=== PATIENT | female | born 1980 | race Caucasian/White ===

== ENCOUNTER → 2018-01-10 13:48 | Outpatient (CLI) | payer OTHER, SELFPAY | PROVIDERS: Referring Provider Obstetrics & Gynecology; Visit Provider Obstetrics & Gynecology | DX: E03.9 Hypothyroidism, unspecified (principal) | CPT/HCPCS: 36415; 84443 ==

== ENCOUNTER → 2018-01-30 10:48 | Outpatient (CLI) | payer OTHER, SELFPAY ==
[2018-01-30 11:36] LABS: T4 Free Direct 1.15 ng/dL (0.76-1.46); Thyroid Stim Hormone (TSH) 1.49 uIU/mL (0.358-3.74)
== END ==
PROVIDERS: Visit Provider Nurse Practitioner Women's Health
DX: O99.280 Endocrine, nutritional and metabolic diseases complicating pregnancy, unspecified trimester (principal); E03.9 Hypothyroidism, unspecified; Z36.9 Encounter for antenatal screening, unspecified; Z3A.00 Weeks of gestation of pregnancy not specified
CPT/HCPCS: 36415; 84439; 84443

== ENCOUNTER → 2018-03-02 08:48 | Outpatient (CLI) | payer OTHER, SELFPAY ==
[2018-02-12 17:01] VITALS: BMI 27.1
[2018-03-02 10:06] LABS: T4 Free Direct 1.09 ng/dL (0.76-1.46)
== END ==
PROVIDERS: Visit Provider Obstetrics & Gynecology
DX: O99.280 Endocrine, nutritional and metabolic diseases complicating pregnancy, unspecified trimester (principal); E03.9 Hypothyroidism, unspecified; Z3A.00 Weeks of gestation of pregnancy not specified
CPT/HCPCS: 36415; 84439; 84443

== ENCOUNTER → 2018-04-11 11:39 | Outpatient (CLI) | payer OTHER, SELFPAY ==
[2018-04-02 15:14] VITALS: BMI 27.1
[2018-04-11 12:32] LABS: T4 Free Direct 1.06 ng/dL (0.76-1.46)
--- OUTSIDE RECORDS SUMMARY | 2018-06-16 07:48 | XMS RPT_ITS ---
:1980 Author Organization OHIP Care Team Providers Name Role Phone Ana Nunez Attending Unavailable PROVIDER, UNKNOWN Referring Unavailable No, PCP Primary Care Unavailable MOO MORGAN Attending Unavailable MARCANTHONY, ISA E Referring Unavailable NO PRIMARY CARE, MD Primary Care Unavailable Marcanthony, Isa Attending Unavailable Primay Care Physicia, No Referring Unavailable Marcanthony, Isa Attending Unavailable Primay Care Physicia, No Referring Unavailable Marcanthony, Isa Attending Unavailable Primay Care Physicia, No Referring Unavailable Marcanthony, Isa Attending Unavailable Marcanthony, Isa Referring Unavailable Primay Care Physicia, No Primary Care Unavailable Marcanthony, Isa Attending Unavailable Marcanthony, Isa Referring Unavailable Primay Care Physicia, No Primary Care Unavailable Marcanthony, Isa Attending Unavailable Marcanthony, Isa Referring Unavailable Primay Care Physicia, No Primary Care Unavailable Marcanthony, Isa Attending Unavailable Primay Care Physicia, No Referring Unavailable Primay Care Physicia, No Attending Unavailable Frannie, Greta Attending Unavailable Primay Care Physicia, No Referring Unavailable Frannie, Greta Attending Unavailable Primay Care Physicia, No Primary Care Unavailable Marcanthony, Isa Attending Unavailable Primay Care Physicia, No Referring Unavailable Marcanthony, Isa Attending Unavailable Primay Care Physicia, No Primary Care Unavailable PROBLEMS PROBLEMS DATE TYPE CONDITION / CODE ATTENDING STATUS SOURCE 04/02/2018 Unknown O09.819 - Marcanthony, Active Catie Supervision of [facility] resulting Hospital from assisted Repository reproductive technology, unspecified trimester / O09.819(ICD-10) 04/02/2018 Unknown O99.820 - Marcanthony, Active Catie Streptococcus B [facility] complicating Repository / O99.820(ICD-10) 04/02/2018 Unknown O99.282 - Marcanthony, Active Catie Endocrine, [facility] metabolic diseases Repository complicating , second trimester / O99.282(ICD-10) 04/02/2018 Unknown Z3A.25 - 25 weeks Marcanthony, Active Catie gestation of [facility] / Hospital Z3A.25(ICD-10) Repository 04/06/2018 Unknown O99.280 - Marcanthony, Active Catie Endocrine, [facility] metabolic diseases Repository complicating , unspecified trimester / O99.280(ICD-10) 02/12/2018 Unknown Z3A.18 - 18 weeks Marcanthony, Active Catie gestation of [facility] / Hospital Z3A.18(ICD-10) Repository 01/30/2018 Unknown E03.9 - Greta Kathleen Active Catie Hypothyroidism, [facility] unspecified / Hospital E03.9(ICD-10) Repository 01/30/2018 Unknown Z34.90 - Encounter Greta Kathleen Active Catie for supervision of [facility] normal , Hospital unspecified, Repository unspecified trimester / Z34.90(ICD-10) 01/30/2018 Unknown Z3A.16 - 16 weeks Greta Kathleen Active [place] gestation of [facility] / Hospital Z3A.16(ICD-10) Repository 08/03/2017 Admitting Androgen excess / Ana Nunez Active [facility] Diagnosis E28.1(ICD-10) System Repository PROCEDURES PROCEDURES No Procedure Records FoundRESULTS RESULTS CBC W/DIFF, AUTOMATED Collected: 04/19/2018 Status: F Source: CATIE 11:07 AM [facility] REPOSITORY TYPE CODE TESTS RESULT OUT OF RANGE REFERENCE UNITS LAB L100.1000 4.4-11.0 K/mm3 Normal WBC 7.2 LAB L100.1200 4.2-5.4 M/mm3 Low RBC 3.86 LAB L100.1300 12.0-15.0 g/dl Low HGB 11.4 LAB L100.1400 37-47 % Low HCT 33.8 LAB L100.1500 81-99 fL Normal MCV 87.6 LAB L100.1600 27.0-32.0 pg Normal MCH 29.5 LAB L100.1700 32-36 g/gl Normal MCHC 33.7 LAB L100.1810 11.6-14.6 % Normal RDW CV 13.3 LAB L100.1820 35.1-43.9 fl Normal RDW SD 42.5 LAB L100.1900 150-450 K/mm3 Normal PLT 232 LAB L100.2000 6.2-12.0 fl Normal MPV 8.8 LAB L100.2100 47-70 % High NEUT% 72.5 LAB L100.2200 19-41 % Normal LY% 21.0 LAB L100.2300 0-10 % Normal MONO% 5.0 LAB L100.2400 0-5 % Normal EO% 1.3 LAB L100.2500 0-1 % Normal BASO% 0.1 LAB L100.2550 0.0-0.9 % Normal IM GRAN % 0.100 Result Comment: IG% - Immature Granulocytes (promyelocytes, myelocytes and metamyelocytes) > 1% indicates that a LEFT SHIFT is Present. LAB L100.2620 2.0-7.7 X10 3/uL Normal Absolute Neut 5.2 LAB L100.2720 0.83-4.51 X10 3/ul Normal Absolute Lymph 1.50 Performed By: #### L100.0100 #### [facility] [address] [place], [address] GLUCOSE CHALLENGE GEST Collected: 04/19/2018 Status: F Source: CATIE 1H 50G 11:07 AM [facility] TYPE CODE TESTS RESULT OUT OF RANGE REFERENCE UNITS LAB L501.0250 70-140 mg/dL High GLU GEST 141 50g 1H Performed By: #### L501.0250 #### [facility] [address] [place], [address] THYROID STIM HORMONE Collected: 04/11/2018 Status: F Source: CATIE (TSH) 12:02 PM [facility] TYPE CODE TESTS RESULT OUT OF RANGE REFERENCE UNITS LAB L501.9520 0.358-3.74 uIU/mL Normal TSH 1.00 Performed By: #### L501.9520, L506.0400 #### [facility] [address] [place], [address] T4 FREE DIRECT Collected: 04/11/2018 Status: F Source: CATIE 12:02 PM [facility] TYPE CODE TESTS RESULT OUT OF RANGE REFERENCE UNITS LAB L506.0400 0.76-1.46 ng/dL Normal T4 FREE 1.06 DIRECT Performed By: #### L501.9520, L506.0400 #### [facility] [address] [place], [address] ICT DEVELOPMENT MANAGER OFFICE VISIT Observed: 04/02/2018 Status: F Source: CATIE REPORT 4:10 PM [facility] [address] [place] [address] OFFICE VISIT Date of Service: 04/02/18 MR#: [id number] Acct: [id number] Name: VENECIA DELGADO Rep #: [id number] : 1980 Provider: Isa Campos MD Age/Sex: 38/F [place] [facility] [place] Status: Signed Intake Vital Signs04/02/18 Body Mass Index (BMI) 27.1 04/02/18 Height 5 ft 9 in 04/02/18 Weight: 197 lb 4 oz 04/02/18 Body Mass Index (BMI) 29.1 04/02/18 Blood Pressure 132/80 H Intake Visit Reasons: est ob 24w Chief Complaint: est ob Appeals Nurse Required: No Is patient in pain?: No Allergies No Known Allergies Allergy (Verified 04/02/18 15:13) Medications levothyroxine 125 mcg tablet 125 mcg PO DAILY #30 tab 03/06/18 [Rx] aspirin 81 mg tablet,delayed release 81 mg PO DAILY 03/12/18 [History Confirmed 04/02/18] vitamin#30 30 mg iron-10 mg iron-folic acid 1 mg- omg3 capsule cap PO cap 04/02/18 [History Confirmed 04/02/18] Last Menstral Period: 10/07/16 Zika: Zika virus screening: Positive (Sarepta) : No PFSH PFSH Medical History Anxiety disorder (Acute) Bartholin's cyst (Acute) Polyp in nasopharynx (Acute) 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 DatName GA/WeeksOutcome Route Bt Lily Mccullough LgAnesthesDel LocaProviderFOB e ht en th ia tn 04/16/12Adhan 8 lbs 3 Male 24 oz HPI est ob 24w: Details: VENECIA DELGADO is a 38 year old who presents for routine OB visit. OB Visit YASMIN Calculator Estimated Delivery Date 07/14/18 Based on LMP (certain) 10/07/17 Current WG 25w 2d Number 1 Expected Delivery Route/Plan Specific Issue/Plans flu vaccine: given tdap vaccine: [] rhogam: NA LARC form signed: [] labor support person: Moo pain management: epidural cut cord/dad catch: yes : yes PP control planned: [] special requests: [] Initial Weight: 185 lb Date Weight BP Urine PrFHR FuHt Pres MoCTX DilationFetal StVisit NoProviderComments E ot v te GA G Effac lucose ed Visit Notes Visit Date: 04/02/18 no vb lof good fm no regular ctx Isa Campos MD on 04/02/18 Visit Date: 03/12/18 no vb lof good fm some lower pelvic pain intermittent- likely round ligament. discussed alternating thyroid us Isa Campos MD on 03/12/18 Visit Date: 02/12/18 no vb cramping lof Isa Campos MD on 02/12/18 Visit Date: 01/30/18 Doing well. No VB, LOF. Greta Kathleen NP-C on 01/30/18 Visit Date: 01/16/18 no vb cramping Isa Campos MD on 01/16/18 Visit Date: 01/01/18 no vb cramping. CHANDLER RGI labs reviewed and normal. normal NIPT plan on AFP screening. Isa Campos MD on 01/03/18 Diagnostics Diagnostics Labs Miscellaneous Test 01/30/18 Details: HIV: Urine Culture: Sequential Screen: NIPT Screen: Results [id number] Office Urine Glucose Negative Last Edit by Sarahi Barrera on 04/02/18 15:18 Office Urine Protein Negative Last Edit by Sarahi Barrera on 04/02/18 15:18 Assessment AND Plan Problems 1. , high-risk, assisted reproductive technology O09.819 PRR YASMIN boy PC Aodhan Moo. CHANDLER RGI 2. GBS (group B Streptococcus carrier), +RV culture, currently O99.820 PCN in labor 3. Hypothyroidism affecting in second trimester O99.282 Check q trimester. TSH elevated, thyroxine normal 4. Advanced maternal age (AMA) in normal NIPT. growth us at 36 weeks 5. 25 weeks gestation of Z3A.25 urine culture negative 12/04/17. + GBS. normal NIPT. ntd screening negative. Carrier screening negative. Anatomy US normal Maximo hahn Plan ACOG trimester education reviewed and updated. see problem list details for updated plan management information and see below for orders placed at this visit. [place] appropriate handout given. Orders Orders: Coding Level of Care Code OB Routine Diagnoses , high-risk, assisted reproductive technology O09.819 GBS (group B Streptococcus carrier), +RV culture, currently O99.820 Hypothyroidism affecting in second trimester O99.282 Trimester: second trimester Advanced maternal age (AMA) in 25 weeks gestation of Z3A.25 Weeks of gestation: 25 weeks 04/02/18 1610 <Electronically signed by Isa Campos MD> Date Isa Campos MD Cosigner Signature: Date (if applicable) CC: ICT DEVELOPMENT MANAGER OFFICE VISIT Observed: 03/17/2018 Status: F Source: CATIE REPORT 3:08 AM [facility] [address] [place], [place] [address]ravindra. [address] [place] [address] OFFICE VISIT Date of Service: 03/12/18 MR#: [id number] Acct: [id number] Name: VENECIA DELGADO Rep #: [id number] : 1980 Provider: Isa Campos MD Age/Sex: 38/F [place] [facility] [place] Status: Signed Intake Vital Signs03/12/18 Body Mass Index (BMI) 27.1 03/12/18 Height 5 ft 10 in 03/12/18 Weight: 190 lb 03/12/18 Body Mass Index (BMI) 27.2 03/12/18 Blood Pressure 126/84 H Intake Visit Reasons: est ob 21w Chief Complaint: Est ob Is patient in pain?: No Allergies No Known Allergies Allergy (Verified 03/12/18 12:04) Medications levothyroxine 112 mcg tablet 112 mcg PO DAILY #30 tab 01/16/18 [Rx Confirmed 02/12/18] levothyroxine 125 mcg tablet 125 mcg PO DAILY #30 tab 03/06/18 [Rx] aspirin 81 mg tablet,delayed release 81 mg PO DAILY 03/12/18 [History Confirmed 03/12/18] Last Menstral Period: 10/07/16 Zika: Zika virus screening: Negative : No PFSH PFSH Medical History Anxiety disorder (Acute) Bartholin's cyst (Acute) Polyp in nasopharynx (Acute) 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 DatName GA/WeeksOutcome Route [facility] Lily Mccullough LgAnestheAnkitael LocaProviderFOB e ht en tn 04/16/12Adhan 8 lbs 3 Male 24 oz HPI est ob 21w: Details: VENECIA DELGADO is a 38 year old who presents for routine OB visit. OB Visit YASMIN Calculator Estimated Delivery Date 07/14/18 Based on LMP (certain) 10/07/17 Current WG 23w 0d Number 1 Expected Delivery Route/Plan Specific Issue/Plans flu vaccine: given tdap vaccine: [] rhogam: NA LARC form signed: [] labor support person: Moo pain management: epidural cut cord/dad catch: yes : yes PP control planned: [] special requests: [] Initial Weight: 185 lb Date Weight BP Urine PFHR FuHt Pres MCTX DilatioFetal SVisit NProvideComment rot ov n t ote r s EGA Ef Gluco faced se 01/02/1184 lb 100/[address] FERGUSON 8 2 oz (- ramping CANTHON 1214 oz) . CHANDLER Y w 2d RGI lab s revie wed and normal . norm al NIPT plan o n AFP s creenin g. Visit Notes Visit Date: 03/12/18 no vb lof good fm some lower pelvic pain intermittent- likely round ligament. discussed alternating thyroid us Isa Campos MD on 03/12/18 Visit Date: 02/12/18 no vb cramping lof Isa Campos MD on 02/12/18 Visit Date: 01/30/18 Doing well. No VB, LOF. Greta Kathleen NP-C on 01/30/18 Visit Date: 01/16/18 no vb cramping Isa Campos MD on 01/16/18 Visit Date: 01/01/18 no vb cramping. CHANDLER RGI labs reviewed and normal. normal NIPT plan on AFP screening. Isa Campos MD on 01/03/18 Diagnostics Diagnostics Labs Miscellaneous Test 01/30/18 Details: HIV: Urine Culture: Sequential Screen: NIPT Screen: Results [id number] Office Urine Glucose Negative Last Edit by Brandee Villeda on 03/12/18 12:06 Office Urine Protein Negative Last Edit by Brandee Villeda on 03/12/18 12:06 Assessment AND Plan Problems 1. , high-risk, assisted reproductive technology O09.819 PRR YASMIN boy PC Aodhan Moo. CHANDLER RGI 2. GBS (group B Streptococcus carrier), +RV culture, currently O99.820 PCN in labor 3. Hypothyroidism affecting in second trimester O99.282 Check q trimester. TSH elevated, thyroxine normal 4. Advanced maternal age (AMA) in normal NIPT. growth us at 36 weeks 5. 18 weeks gestation of Z3A.18 urine culture negative 12/04/17. + GBS. normal NIPT. ntd screening negative. Carrier screening negative. Anatomy US normal Maximo hahn Plan ACOG trimester education reviewed and updated. see problem list details for updated plan management information and see below for orders placed at this visit. [place] appropriate handout given. Orders Orders: Coding Level of Care Code OB Routine Diagnoses , high-risk, assisted reproductive technology O09.819 GBS (group B Streptococcus carrier), +RV culture, currently O99.820 Hypothyroidism affecting in second trimester O99.282 Trimester: second trimester Advanced maternal age (AMA) in 18 weeks gestation of Z3A.18 Weeks of gestation: 18 weeks 03/17/18 0308 <Electronically signed by Isa Campos MD> Date Isa Campos MD Cosigner Signature: Date (if applicable) CC: THYROID STIM HORMONE Collected: 03/02/2018 Status: F Source: CATIE (TSH) 8:58 AM [facility] TYPE CODE TESTS RESULT OUT OF RANGE REFERENCE UNITS LAB L501.9520 0.358-3.74 uIU/mL High TSH 3.90 Performed By: #### L501.9520, L506.0400 #### [facility] [address] [place], [place], [address] T4 FREE DIRECT Collected: 03/02/2018 Status: F Source: CATIE 8:58 AM [facility] TYPE CODE TESTS RESULT OUT OF RANGE REFERENCE UNITS LAB L506.0400 0.76-1.46 ng/dL Normal T4 FREE 1.09 DIRECT Performed By: #### L501.9520, L506.0400 #### [facility] [address] [place], [address] ICT DEVELOPMENT MANAGER OFFICE VISIT Observed: 02/12/2018 Status: F Source: CATIE REPORT 5:53 PM [facility] [address] [place] [address] OFFICE VISIT Date of Service: 02/12/18 MR#: [id number] Acct: [id number] Name: VENECIA DELGADO Rep #: [id number] : 1980 Provider: Isa Campos MD Age/Sex: 37/F [place] [facility] [place] Status: Signed Intake Vital Signs02/12/18 Height 5 ft 10 in 02/12/18 Weight: 189 lb 02/12/18 Body Mass Index (BMI) 27.1 02/12/18 Blood Pressure 116/70 Intake Visit Reasons: est ob 18w Chief Complaint: est ob Appeals Nurse Required: No Is patient in pain?: No Allergies No Known Allergies Allergy (Verified 02/12/18 17:01) Medications levothyroxine 112 mcg tablet 112 mcg PO DAILY #30 tab 01/16/18 [Rx Confirmed 02/12/18] Last Menstral Period: 10/07/16 Zika: Zika virus screening: Negative : No PFSH PFSH Medical History Anxiety disorder (Acute) Bartholin's cyst (Acute) Polyp in nasopharynx (Acute) 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 DatName GA/WeeksOutcome Route Bth WeigInfant GLadanii LgAnesthesDel LocaProviderFOB e ht en th ia tn 04/16/12Adhan 8 lbs 3 Male 24 oz HPI est ob 18w: Details: VENECIA DELGADO is a 37 year old who presents for routine OB visit. patient is unable to give urine specimen OB Visit YASMIN Calculator Estimated Delivery Date 07/14/18 Based on LMP (certain) 10/07/17 Current WG 18w 2d Number 1 Expected Delivery Route/Plan Specific Issue/Plans flu vaccine: given tdap vaccine: [] rhogam: NA LARC form signed: [] labor support person: Moo pain management: epidural cut cord/dad catch: yes : yes PP control planned: [] special requests: [] Initial Weight: Not Recorded Date Weight BP Urine PrFHR FuHt Pres MoCTX DilationFetal StVisit NoProviderComments E ot v te GA G Effac lucose ed Visit Notes Visit Date: 02/12/18 no vb cramping lof Isa Campos MD on 02/12/18 Visit Date: 01/30/18 Doing well. No VB, LOF. SHANE Ventura on 01/30/18 Visit Date: 01/16/18 no vb cramping Isa Campos MD on 01/16/18 Visit Date: 01/01/18 no vb cramping. CHANDLER RGI labs reviewed and normal. normal NIPT plan on AFP screening. Isa Campos MD on 01/03/18 Diagnostics Diagnostics Labs Miscellaneous Test 01/30/18 Details: HIV: Urine Culture: Sequential Screen: NIPT Screen: Assessment AND Plan Problems 1. , high-risk, assisted reproductive technology O09.819 PRR YASMIN boy PC Aodhan Moo. CHANDLER RGI 2. GBS (group B Streptococcus carrier), +RV culture, currently O99.820 PCN in labor 3. Hypothyroidism affecting in second trimester O99.282 repeat normal, check q trimester 4. Advanced maternal age (AMA) in normal NIPT. growth us at 36 weeks 5. 18 weeks gestation of Z3A.18 urine culture negative 12/04/17. + GBS. normal NIPT. ntd screening negative. Carrier screening negative. Maximo hahn Plan ACOG trimester education reviewed and updated. see problem list details for updated plan management information and see below for orders placed at this visit. [place] appropriate handout given. Coding Level of Care Code OB Routine Diagnoses , high-risk, assisted reproductive technology O09.819 GBS (group B Streptococcus carrier), +RV culture, currently O99.820 Hypothyroidism affecting in second trimester O99.282 Trimester: second trimester Advanced maternal age (AMA) in 18 weeks gestation of Z3A.18 Weeks of gestation: 18 weeks 02/12/18 2683 <Electronically signed by Isa Campos MD> Date Isa Campos MD Cosigner Signature: Date (if applicable) CC: MISCELLANEOUS LAB Collected: 01/30/2018 Status: F Source: CATIE PROCEDURE 10:54 AM [facility] Order Comment: Comments: [id number] a-Fetoprotein (AFP), Maternal Serum for Test(s) Ordered: [id number] a-Fetoprotein (AFP), Maternal Serum for TYPE CODE TESTS RESULT OUT OF RANGE REFERENCE UNITS LAB L801.1541 Normal [facility] TEST Result Comment: TEST RESULT UNITS REF INTERVAL AFP, Serum, Open Spina Bifida Results Report Test Results: *Screen Negative* Gest. Age on Collection Date 16.4 weeks Gestat. Age Based On As provided Recalculations are not recommended when gestational dating by LMP and ultrasound are within 10 days. [age] YASMIN [age] yr Race Weight 186 lbs Insulin Dep Diabetes Not provided. Multiple Gestation No AFP Value 17.8 ng/mL AFP MoM 0.59 OS[place] 1 [place] [address] Interpretation Interpretation: Screen Negative This result is screen negative for OSB. The AFP MoM calculated is based on the gestational age provided. MS-AFP can identify up to 80% of open neural tube defects. Closed neural tube defects and some open defects may not be detected by this test. This test does not screen for Down Syndrome or Trisomy 18. If screening for Down Syndrome or Trisomy 18 is desired, contact Genetic Customer Services to discuss available options. The [employer] recommends amniocentesis be offered to women age 35 and older. Comment: Terri Souza, Ph.D., [facility] Principal Genetics [place] Nurse References: Available Upon Request. Multiples Of Median Cutoffs For AFP Elevations Raymundo 2.5 Black 2.8 IDD 2.0 Twins 4.5 Abbreviation Definitions IDD - Insulin Dep Diabetes OSBR - Open Spina Bifida Risk For further inquiries contact [facility] Services at [phone]. TESTING PERFORMED AT [facility]. ORIGINAL REPORT ON FILE IN LAB CONTAINS ADDITIONAL TEST SITE INFORMATION. Performed By: #### L801.1541 #### [facility] [address] [place] [address]. [place], [place], [address] THYROID STIM HORMONE Collected: 01/30/2018 Status: F Source: CATIE (TSH) 10:52 AM [facility] Order Comment: Comments: [id number] a-Fetoprotein (AFP), Maternal Serum for TYPE CODE TESTS RESULT OUT OF RANGE REFERENCE UNITS LAB L501.9520 0.358-3.74 uIU/mL Normal TSH 1.49 Performed By: #### L501.9520, L506.0400 #### [facility] [address] [facility], [address] T4 FREE DIRECT Collected: 01/30/2018 Status: F Source: CATIE 10:52 AM [facility] Order Comment: Comments: [id number] a-Fetoprotein (AFP), Maternal Serum for TYPE CODE TESTS RESULT OUT OF RANGE REFERENCE UNITS LAB L506.0400 0.76-1.46 ng/dL Normal T4 FREE 1.15 DIRECT Performed By: #### L501.9520, L506.0400 #### [facility] [address] [place], [address] ICT DEVELOPMENT MANAGER OFFICE VISIT Observed: 01/30/2018 Status: F Source: CATIE REPORT 10:39 AM [facility] [address] [place] [address] OFFICE VISIT Date of Service: 01/30/18 MR#: [id number] Acct: [id number] Name: VENECIA DELGADO Rep #: [id number] : 1980 Provider: YOLA Kathleen Age/Sex: 37/F [place] [facility] [place] Status: Signed Intake Vital Signs01/30/18 Height 5 ft 9 in 01/30/18 Weight: 186 lb 4 oz 01/30/18 Body Mass Index (BMI) 27.5 01/30/18 Blood Pressure 108/78 Intake Visit Reasons: 16 weeks Appeals Nurse Required: No Is patient in pain?: No Allergies No Known Allergies Allergy (Verified 01/30/18 10:23) Medications levothyroxine 112 mcg tablet 112 mcg PO DAILY #30 tab 01/16/18 [Rx Confirmed 01/30/18] Last Menstral Period: 10/07/16 Zika: Zika virus screening: Negative : No PFSH PFSH Medical History Anxiety disorder (Acute) Bartholin's cyst (Acute) Polyp in nasopharynx (Acute) 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 DatName GA/WeeksOutcome Route [facility] LgAnesthesDel LocaProviderFOB e ht en ia tn 04/16/12Adhan 8 lbs 3 Male 24 oz HPI 16 weeks: Details: VENECIA DELGADO is a 37 year old who presents for routine OB visit. OB Visit YASMIN Calculator Estimated Delivery Date 07/14/18 Based on LMP (certain) 10/07/17 Current WG 16w 3d Number 1 Expected Delivery Route/Plan Specific Issue/Plans flu vaccine: given tdap vaccine: [] rhogam: NA LARC form signed: [] labor support person: Moo pain management: epidural cut cord/dad catch: yes : yes PP control planned: [] special requests: [] Initial Weight: Not Recorded Date Weight BP Urine PFHR FuHt Pres MCTX DilatioFetal SVisit NProvideComment rot ov n t ote r s EGA Ef Gluco faced se 01/02/1184 lb 100/[address] FERGUSON 8 2 oz ramping CANTHON 12 . CHANDLER Y w 2d RGI lab s revie wed and normal . norm al NIPT plan o n AFP s creenin g. Visit Notes Visit Date: 01/30/18 Doing well. No VB, LOF. SHANE Ventura on 01/30/18 Visit Date: 01/16/18 no vb cramping Isa Campos MD on 01/16/18 Visit Date: 01/01/18 no vb cramping. CHANDLER RGI labs reviewed and normal. normal NIPT plan on AFP screening. Isa Campos MD on 01/03/18 Diagnostics Diagnostics Details: HIV: Urine Culture: Sequential Screen: NIPT Screen: Results BMSUA2 Office Urine Glucose Negative Last Edit by Tawana Bahena on 01/30/18 10:30 Office Urine Protein Negative Last Edit by Tawana Bahena on 01/30/18 10:30 BMSUA Office Urine Color Yellow Last Edit by Tawana Bahena on 01/30/18 10:34 Office Urine Clarity Clear Last Edit by Tawana Bahena on 01/30/18 10:34 Assessment AND Plan Problems 1. , high-risk, assisted reproductive technology O09.819 PRR YASMIN boy PC Aodhan Moo. CHANDLER RGI 2. Advanced maternal age (AMA) in normal NIPT. growth us at 36 weeks 3. GBS (group B Streptococcus carrier), +RV culture, currently O99.820 PCN in labor 4. Hypothyroidism affecting in second trimester O99.282; E03.9 check the week of 01/02, check q trimester 5. 16 weeks gestation of Z3A.16 urine culture negative 12/04/17. + GBS. normal NIPT. plan NTD screening. Carrier screening negative. Maximo hahn Plan Orders placed: AFP, thyroid labs, flu vaccine Anatomy US scheduled Reviewed of labor precautions, movement/kick counts ACOG trimester education reviewed and updated See problem list details for updated plan of care Gestational age appropriate handout given RTO: 2 weeks Orders Orders: Coding Level of Care Code OB Routine Diagnoses , high-risk, assisted reproductive technology O09.819 Advanced maternal age (AMA) in GBS (group B Streptococcus carrier), +RV culture, currently O99.820 Hypothyroidism affecting in second trimester O99.282; E03.9 Trimester: second trimester 16 weeks gestation of Z3A.16 Weeks of gestation: 16 weeks 01/30/18 1039 <Electronically signed by Greta LYNN> Date Greta LYNN Cosigner Signature: Date (if applicable) CC: ICT DEVELOPMENT MANAGER OFFICE VISIT Observed: 01/16/2018 Status: F Source: CATIE REPORT 2:21 PM [facility] [place] [address] [place] [address] OFFICE VISIT Date of Service: 01/16/18 MR#: [id number] Acct: [id number] Name: VENECIA DELGADO Rep #: [id number] : 1980 Provider: Isa Campos MD Age/Sex: 37/F [place] [facility] [place]: Signed Intake Vital Signs01/16/18 Height 5 ft 9 in 01/16/18 Weight: 186 lb 01/16/18 Body Mass Index (BMI) 27.4 01/16/18 Blood Pressure 110/70 Intake Visit Reasons: 14 weeks Appeals Nurse Required: No Is patient in pain?: No Allergies No Known Allergies Allergy (Verified 01/16/18 14:02) Medications levothyroxine 112 mcg tablet 112 mcg PO DAILY #30 tab 01/16/18 [Rx Confirmed 01/16/18] Last Menstral Period: 10/07/16 Zika: Zika virus screening: Negative : No PFSH PFSH Medical History Anxiety disorder (Acute) Bartholin's cyst (Acute) Polyp in nasopharynx (Acute) 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 DatName GA/WeeksOutcome Route [facility] LocaProviderFOB e ht en tn 04/16/12Adhan 8 lbs 3 Male 24 oz HPI 14 weeks: Details: VENECIA DELGADO is a 37 year old who presents for routine OB visit. OB Visit YASMIN Calculator Estimated Delivery Date 07/14/18 Based on LMP (certain) 10/07/17 Current WG 14w 3d Number 1 Expected Delivery Route/Plan Initial Weight: Not Recorded Date Weight BP Urine PrFHR FuHt Pres MoCTX DilationFetal StVisit NoProviderComments E ot v te GA G Effac lucose ed Visit Notes Visit Date: 01/16/18 no vb cramping Isa Campos MD on 01/16/18 Visit Date: 01/01/18 no vb cramping. CHANDLER RGI labs reviewed and normal. normal NIPT plan on AFP screening. Isa Campos MD on 01/03/18 Diagnostics Diagnostics Details: HIV: Urine Culture: Sequential Screen: NIPT Screen: Assessment AND Plan Problems 1. , high-risk, assisted reproductive technology O09.819 PRR YASMIN boy PC Aodhan Moo. CHANDLER RGI 2. Advanced maternal age (AMA) in normal NIPT. growth us at 36 weeks 3. Z34.90 normal NIPT. plan NTD screening. Carrier screening negative. 4. GBS (group B Streptococcus carrier), +RV culture, currently O99.820 PCN in labor 5. Hypothyroidism affecting O99.280; E03.9 check the week of 01/02, check q trimester Plan ACOG trimester education reviewed and updated. see problem list details for updated plan management information and see below for orders placed at this visit. GA appropriate handout given. Orders Orders: Medications New: Discontinued: Coding Level of Care Code OB Routine Diagnoses , high-risk, assisted reproductive technology O09.819 Advanced maternal age (AMA) in Z34.90 GBS (group B Streptococcus carrier), +RV culture, currently O99.820 Hypothyroidism affecting O99.280; E03.9 01/16/18 1421 <Electronically signed by Isa Campos MD> Date Isa Campos MD Cosigner Signature: Date (if applicable) CC: THYROID STIM HORMONE Collected: 01/10/2018 Status: F Source: CATIE (TSH) 1:57 PM [facility] TYPE CODE TESTS RESULT OUT OF RANGE REFERENCE UNITS LAB L501.9520 0.358-3.74 uIU/mL Normal TSH 1.80 Performed By: #### L501.9520 #### Catie [facility] [address] [place], [address] ICT DEVELOPMENT MANAGER OFFICE VISIT Observed: 01/03/2018 Status: F Source: CATIE REPORT 3:35 AM [facility] [address] [place] [address] OFFICE VISIT Date of Service: 01/01/18 MR#: [id number] Acct: [id number] Name: VENECIA DELGADO Rep #: [id number] : 1980 Provider: Isa Campos MD Age/Sex: 37/F Location[place] [facility] [place] Status: Signed Intake Vital Signs01/01/18 Height 5 ft 9 in 01/01/18 Weight: 184 lb 2 oz 01/01/18 Body Mass Index (BMI) 27.1 01/01/18 Blood Pressure 100/80 Intake Visit Reasons: NOB - 12 WEEK RELEASE FROM SPECIALIST Chief Complaint: est ob, released from Dr. Nunez Appeals Nurse Required: No Is patient in pain?: No Allergies No Known Allergies Allergy (Verified 01/01/18 16:18) Medications citalopram 20 mg tablet 20 mg PO QDAY #30 tab 05/25/17 [Rx] Last Menstral Period: 10/07/16 Zika: Zika virus screening: Positive ([place]) : No PFSH PFSH Medical History Secondary female infertility (Chronic) Anxiety disorder (Acute) Bartholin's cyst (Acute) Polyp in nasopharynx (Acute) Surgical History History of appendectomy (Acute) Status post hysteroscopic polypectomy (Resolved) Family History Mother Breast cancer Social History Smoking Status: Never smoker details: social substance use type: does not use what type of physical activity do you participate in: walking, running frequency: 3-4 times per week duration: 30-45 minutes/day seatbelt use: always do you feel safe at home: Yes additional social history: Spouse Moo DILLARD Patient works at [employer] Pregancy History 4 Elective abortions Hx Para 1 Spontaneous abortions Past Pregnancies Del. DatName GA/WeeksOutcome Route [facility] LgAnesthesDel LocaProviderFOB e ht en ia tn 04/16/12Adhan 8 lbs 3 Male 24 oz HPI NOB - 12 WEEK RELEASE FROM SPECIALIST: Details: VENECIA DELGADO is a 37 year old who presents for routine OB visit. OB Visit YASMIN Calculator Estimated Delivery Date 07/14/18 Based on LMP (certain) 10/07/17 Current WG 12w 4d Number 1 Initial Weight: Not Recorded Date Weight BP Urine PrFHR FuHt Pres MoCTX DilationFetal StVisit NoProviderComments E ot v te [place] G Effac lucose ed Visit Notes Visit Date: 01/01/18 no vb cramping. CHANDLER RGI labs reviewed and normal. normal NIPT plan on AFP screening. Isa Campos MD on 01/03/18 Diagnostics Diagnostics Details: HIV: Urine Culture: Sequential Screen: NIPT Screen: Assessment AND Plan Problems 1. Z34.90 normal NIPT. plan NTD screening. Carrier screening negative. 2. , high-risk, assisted reproductive technology O09.819 PRR YASMIN boy PC Aodhan Moo. CHANDLER RGI 3. Advanced maternal age (AMA) in normal NIPT. growth us at 36 weeks Plan ACOG trimester education reviewed and updated. see problem list details for updated plan management information and see below for orders placed at this visit. GA appropriate handout given. reviewed records Orders Orders: Coding Level of Care Code OB Routine Diagnoses Z34.90 , high-risk, assisted reproductive technology O09.819 Advanced maternal age (AMA) in 01/03/18 0335 <Electronically signed by Isa Campos MD> Date [facility] Signature: Date (if applicable) CC: CT ABDOMEN W/O Observed: 08/04/2017 Status: F Source: Periscope CONTRAST 8:11 AM SYSTEM REPOSITORY Patient Name: ALEXSANDRA DELGADO CT Exam Date/Time 08/03/2017 09:33:[address] Abdomen w/o Contrast (No PO, No IV) Ordering Physician ANA NUNEZ Accession Number [id number] CPT4 Codes 40258 (CT Abdomen w/o Contrast (No PO, No IV)) Reason For Exam hyperandrogenism Report Clinical indication: Hyperandrogenism Comparison: None Contrast: None Radiation dose: DLP 524 mGycm Imaging was performed from diaphragm and iliac crest with axial, coronal and sagittal images reconstructed. Visualized lung bases are clear. There are no pleural effusions. The adrenal glands appear normal in size and configuration with no focal masses noted. Along the diaphragmatic surface of the liver in the right and left lobes there are several circumscribed hypodensities measuring less than 1 cm diameter. There is a more ill-defined hypodensity below the capsule along the lateral mid to lower right hepatic lobe (axial image number 104). These are nonspecific and statistically most likely represent cysts. The more ill- defined area in the right hepatic lobe could potentially represent a hemangioma. Spleen is normal in appearance. No focal masses are noted. Pancreas is normal in appearance. There are no inflammatory changes or obvious masses No stones are noted in the kidneys. There are no masses identified distorting contours or density of the renal parenchyma. There is no hydronephrosis. There are several subcentimeter left renal level lymph nodes. These are asymmetric in visible number compared to the right but are not pathologic in size. Intestinal loops are nondilated. No ascites or pneumoperitoneum is noted. The aorta is normal in size. Vena cava is normally distended. There are no pathologically enlarged retroperitoneal lymph nodes. No masses noted in the region of the aortic bifurcation. Osseous structures appear normal. IMPRESSION: No adrenal or retroperitoneal mass is identified with regard to the patient's history of hyperandrogenism Incidental subcentimeter hypodensities in the liver most likely represent cysts, with hemangioma possibility for the lower right hepatic finding. These are most likely of no significance and no specific follow-up is recommended. Report Dictated on Final Dictating Physician: MD SAUNDERS DIANE Signed Date and Time: 08/04/2017 8:54 am Signed by: MD SAUNDERS DIANE Transcribed Date and Time: 08/04/2017 8:56 ALLERGIES ALLERGIES DATE TYPE / CODE NAME / CODE REACTION SEVERITY SOURCE 04/02/2018 Drug No Known Unknown [facility] Allergy/4160 Allergies/F00 Hospital 96465(SNOMED 0557817(RXNOR Repository CT) M) ENCOUNTERS ENCOUNTERS ADMIT/DISCHARGE ACCOUNT NUMBER ADMITTING ENCOUNTER LOCATION SOURCE CLASS 04/19/2018 [id number] Ambulatory [facility] ding:[facility] Repository 04/11/2018 [id number] Ambulatory [facility] ding:[facility] Repository 04/02/2018/04/02/19 [id number] Ambulatory BMSBuilding: [place] 19 BMS.[facility] Repository 03/12/2018/03/12/20 [id number] Ambulatory BMSBuilding: [place] 18 BMS.[facility] Repository 03/02/2018 [id number] Ambulatory [facility] ding:[facility]VLAB Repository 02/22/2018/02/23/20 [id number] Ambulatory Building:[address] Repository 02/12/2018/02/13/20 [id number] Ambulatory BMSBuilding: [place] 18 BMS.[facility] Repository 01/30/2018 [id number] Ambulatory [facility] ding:[facility] Repository 01/30/2018/01/31/20 [id number] Ambulatory BMSBuilding: [place] 18 BMS.[facility] Repository 01/16/2018/01/17/20 [id number] Ambulatory BMSBuilding: [place] 18 BMS.[facility] Repository 01/10/2018 [id number] Ambulatory [place] [facility] ding:[facility]VLAB Repository 01/01/2018/01/02/20 [id number] Ambulatory BMSBuilding: [place] 18 BMS.[facility] Repository 12/04/2017 [id number] Ambulatory BMS [facility] Repository 08/03/2017 [id number] Ambulatory [facility] Repository PAYERS PAYERS ENCOUNTER GUARANTOR PAYER SUBSCRIBER SOURCE 04/19/2018 DEIRBHILE T Primary MOO [place] [id number] Insurance:MEDICAL SMYTHDOB: [address] Number: Repository [address]Kgp: 330 [id number] [phone] () Date:4878-23-55QC[address] [address]QS: 04/19/2018 Secondary NOT GIVENUNK [place] Insurance:SELF PAY [facility] Number: Effective Repository Date:2018-04-19 04/11/2018 DEIRBHILE T Primary MOO [place] [id number] Insurance:MEDICAL SMYTHDOB: [address] Number: Repository [address]Hlr: 330 [id number] [phone] (HP) Date:4802-01-24TB[address] [address]XM: 04/11/2018 Secondary NOT GIVENUNK [place] Insurance:SELF PAY [facility] Number: Effective Repository Date:2018-04-11 04/02/2018 DEIRBHILE T Primary MOO [place] [id number] Insurance:MEDICAL SMYTHDOB: [address] Number: Repository [id number]: 330 [id number] [phone] (HP) Date:3348-21-22WF [address] [address]IJ: 04/02/2018 Secondary NOT GIVENUNK [place] Insurance:SELF PAY [facility] Number: Effective Repository Date:2018-04-02 03/12/2018 DEIRBHILE T Primary MOO [place] [id number] Insurance:MEDICAL SMYTHDOB: [facility] [place] Number: Repository [address]Jmh: 330 [id number] [phone] (HP) Date:3607-16-70IS[address] [address]PV: 03/12/2018 Secondary NOT GIVENUNK [place] Insurance:SELF PAY [facility] Number: Effective Repository Date:2018-03-12 03/02/2018 DEIRBHILE T Primary MOO [place] [id number] Insurance:MEDICAL SMYTHDOB: [facility] 7432[place] Number: Repository [address]Wjd: 330 [id number] [phone] (HP) Date:4327-89-78QE[address] [address]OZ: 03/02/2018 Secondary NOT GIVENUNK [place] Insurance:SELF PAY [facility] Number: Effective Repository Date:2018-03-02 02/22/2018 DEIRBHILE Primary MOO [facility] SMYTHDOB: Insurance:MEDICAL SMYTHDOB: [facility] [id number] [facility] [id number] Repository [facility] Number: [address] [place], [place] [id number] [place], [place] [address]Huy: 330) Date: [phone] (HP) 02/12/2018 DEIRBHILE T Primary MOO [place] [id number] Insurance:MEDICAL SMYTHDOB: [facility] [id number] Number: Repository [id number]: (330 [id number] [phone] (HP) Date:2890-51-02FB [address] [place] [address]ST: 02/12/2018 Secondary NOT GIVENUNK [place] Insurance:SELF PAY [facility] Number: Effective Repository Date:2018-02-12 01/30/2018 DEIRJUNIORILE T Primary MOO [place] [id number] Insurance:MEDICAL SMYTHDOB: [facility] [id number] Number: Repository [address]Uht: 330 [id number] [phone] (HP) Date:9311-52-03WC [address] [address]BA: 01/30/2018 Secondary NOT GIVENUNK [place] Insurance:SELF PAY [facility] Number: Effective Repository Date:2018-01-30 01/30/2018 DEIRILE T Primary MOO [place] [id number] Insurance:MEDICAL SMYTHDOB: [facility] 7829[place] Number: Repository [address]Lxj: 330 [id number] [phone] (HP) Date:7471-65-52BX [address] [address]XV: 01/30/2018 Secondary NOT GIVENUNK [place] Insurance:SELF PAY [facility] Number: Effective Repository Date:2018-01-30 01/16/2018 DEIRBHILE T Primary MOO [place] [id number] Insurance:MEDICAL SMYTHDOB: [facility] 4667[place]74-[place] Number: Repository [address]Wmo: 330 [id number] [phone] (HP) Date:2689-64-41IV [address] [address]NT: 01/16/2018 Secondary NOT GIVENUNK [place] Insurance:SELF PAY [facility] Number: Effective Repository Date:2018-01-16 01/10/2018 DEIRBHILE T Primary MOO [place] [id number] Insurance:MEDICAL SMYTHDOB: [facility] 8603[place]99[place] Number: Repository [id number]: 330 [id number] [phone] () Date:1415-34-74GB[address] [address]DO: 01/10/2018 Secondary NOT GIVENUNK [place] Insurance:SELF PAY [facility] Number: Effective Repository Date:2018-01-10 01/01/2018 DEIRBHILE Primary MOO [place] [id number] Insurance:MEDICAL SMYTHDOB: [facility] 1754[place]40[place] Number: Repository [address]Cfa: 330 [id number] [phone] () Date:9279-33-23EB[address] [address]ZA: 01/01/2018 Secondary NOT GIVENUNK [place] Insurance:SELF PAY [facility] Number: Effective Repository Date:2018-01-01 12/04/2017 DEIRBHILE T Primary MOO [place] [id number] Insurance:MEDICAL SMYTHDOB: [facility] 6105[place] Number: Repository [address]Dtt: 330 [id number] [phone] (HP) Date:2541-73-11QK[address] [address]MJ: 12/04/2017 Secondary NOT GIVENUNK [place] Insurance:SELF PAY [facility] Number: Effective Repository Date:2017-12-04 08/03/2017 Dierbhile Primary [facility] SmythDOB: Insurance:Medical SmythDOB: System [id number] [facility] [id number] [facility] Number: Effective [place], [place] Date: [address]Ppw: (HP)
== END ==
PROVIDERS: Referring Provider Obstetrics & Gynecology; Visit Provider Obstetrics & Gynecology
DX: O99.280 Endocrine, nutritional and metabolic diseases complicating pregnancy, unspecified trimester (principal); E03.9 Hypothyroidism, unspecified; Z3A.00 Weeks of gestation of pregnancy not specified
CPT/HCPCS: 36415; 84439; 84443

== ENCOUNTER → 2018-04-19 11:04 | Outpatient (CLI) | payer OTHER, SELFPAY ==
[2018-04-02 15:14] VITALS: BMI 27.1
[2018-04-19 11:41] LABS: Absolute Neutrophil Count 5.2 X10^3/uL (2.0-7.7); Basophil# 0.01 X10^3/uL; Basophil% 0.1 % (0-1); Eosinophil# 0.09 X10^3/uL; Eosinophils% 1.3 % (0-5); Hematocrit 33.8 % (37-47); Hemoglobin 11.4 g/dl (12.0-15.0); Mean Corp Hgb Conc 33.7 g/gl (32-36); Mean Corpuscular Hgb 29.5 pg (27.0-32.0); Mean Corpuscular Volume 87.6 fL (81-99); Mean Platelet Vol. 8.8 fl (6.2-12.0); Monocyte# 0.36 X10^3/uL; Neutrophil # 5.18 X10^3/uL (2.7-7.7); Neutrophil % 72.5 % (47-70); Platelet Count 232 K/mm3 (150-450); RBC Distribution Width CV 13.3 % (11.6-14.6); RBC Distribution Width SD 42.5 fl (35.1-43.9); Red Blood Count 3.86 M/mm3 (4.2-5.4); White Blood Count 7.2 K/mm3 (4.4-11.0)
[2018-04-19 11:46] LABS: POSITIVE COUNT NO; POSITIVE DIFFERENTIAL NO; POSITIVE MORPHOLOGY NO
[2018-04-19 12:10] LABS: Glucose Challenge Gest 1H 50g 141 mg/dL (70-140)
== END ==
PROVIDERS: Referring Provider Obstetrics & Gynecology; Visit Provider Obstetrics & Gynecology
DX: O09.819 Supervision of pregnancy resulting from assisted reproductive technology, unspecified trimester (principal); Z3A.00 Weeks of gestation of pregnancy not specified
CPT/HCPCS: 36415; 82950; 85025

== ENCOUNTER → 2018-04-24 07:02 | Outpatient (CLI) | payer OTHER, SELFPAY ==
[2018-04-02 15:14] VITALS: BMI 27.1
[2018-04-24 08:47] LABS: Glucose GTT-Gestational 1 Hr 150 mg/dL (<190)
[2018-04-24 08:48] LABS: Glucose GTT-Gestation. Fasting 76 mg/dL (<105)
[2018-04-24 10:10] LABS: Glucose GTT-Gestational 2 Hr 94 mg/dL (<165)
[2018-04-24 11:35] LABS: Glucose GTT-Gestational 3 Hr 75 L (<145)
== END ==
PROVIDERS: Referring Provider Obstetrics & Gynecology; Visit Provider Obstetrics & Gynecology
DX: O99.810 Abnormal glucose complicating pregnancy (principal)
CPT/HCPCS: 36415; 82951; 82952

== ENCOUNTER → 2018-05-08 10:38 | Outpatient (CLI) | payer OTHER, SELFPAY ==
[2018-04-30 15:45] VITALS: BMI 29.7
[2018-05-08 11:17] LABS: T4 Free Direct 1.01 ng/dL (0.76-1.46); Thyroid Stim Hormone (TSH) 1.13 uIU/mL (0.358-3.74)
== END ==
PROVIDERS: Visit Provider Obstetrics & Gynecology
DX: O99.280 Endocrine, nutritional and metabolic diseases complicating pregnancy, unspecified trimester (principal); E03.9 Hypothyroidism, unspecified; Z3A.00 Weeks of gestation of pregnancy not specified
CPT/HCPCS: 36415; 84439; 84443

== ENCOUNTER → 2018-06-05 12:23 | Outpatient (CLI) | payer OTHER, SELFPAY ==
[2018-05-28 15:21] VITALS: BMI 29.7
--- NOTE | 2018-06-05 12:25 | US_ITS ---
STUDY: SECOND AND THIRD TRIMESTER OBSTETRICAL ULTRASOUND - LIMITED REASON FOR EXAM: Female, 38 years old. Routine survey. LMP: October 07, 2017. PRIOR ULTRASOUND: None. TECHNIQUE: Transabdominal TECHNICAL QUALITY: Adequate. FINDINGS: There is a single intrauterine fetus. The fetus is in a cephalic presentation. There is demonstrated cardiac activity with a heart rate of 135 bpm. There is a normal amniotic fluid volume. The largest amniotic fluid pocket measures 4.7 cm x 2 cm. The amniotic fluid index (TINY) is 12.7 cm. The placenta is fundal in location. There are Grade 1 placental changes. The cervix measures 4.0 cm in length. BIOMETRY: BPD: 8.56 cm: 34 weeks, 4 days HC: 32.4 cm: 36 weeks, 5 days AC: 31.61 cm: 35 weeks, 4 days FL: 6.95 cm: 35 weeks, 3 days Age by LMP: 34 weeks, 3 days. YASMIN by LMP: July 14, 2018. age by current US: 35 weeks, 4 days. YASMIN by current US: July 06, 2018. Estimated weight: 2698 grams, +/- 394 grams, 76 percentile. US/OB Limited With Biometrics IMPRESSION: Single live intrauterine intrauterine gestation with a mean gestational age of 34 weeks and 3 days. Electronically Signed: Lev Johnson, at 13:31 EDT , Service support ,
== END ==
PROVIDERS: Referring Provider Obstetrics & Gynecology; Visit Provider Obstetrics & Gynecology
DX: Z34.90 Encounter for supervision of normal pregnancy, unspecified, unspecified trimester (principal)
CPT/HCPCS: 76816

== ENCOUNTER 2018-07-13 04:35 | Inpatient (IN) | payer OTHER, SELFPAY ==
[2018-05-14 15:10] VITALS: BMI 29.7
[2018-07-06 10:02] VITALS: BMI 31.5
[2018-07-10 13:14] VITALS: BMI 31.8
[2018-07-13 04:45] VITALS: BMI 31.2
[2018-07-13] MEDS: Lactated Ringers 1,000 ML 50 ML IV ×3 (05:25→18:39)
[2018-07-13 05:43] LABS: Absolute Lymphocyte Count 2.17 X10^3/ul (0.83-4.51); Absolute Neutrophil Count 5.9 X10^3/uL (2.0-7.7); Basophil# 0.02 X10^3/uL; Basophil% 0.2 % (0-1); Eosinophil# 0.12 X10^3/uL; Eosinophils% 1.4 % (0-5); Hematocrit 37.8 % (37-47); Hemoglobin 13.2 g/dl (12.0-15.0); Lymphocyte # 2.17 X10^3/ul (4.0); Lymphocyte % 24.9 % (19-41); Mean Corp Hgb Conc 34.9 g/gl (32-36); Mean Corpuscular Hgb 30.1 pg (27.0-32.0); Mean Corpuscular Volume 86.3 fL (81-99); Mean Platelet Vol. 9.1 fl (6.2-12.0); Monocyte# 0.52 X10^3/uL; Neutrophil # 5.87 X10^3/uL (2.7-7.7); Neutrophil % 67.3 % (47-70); Platelet Count 226 K/mm3 (150-450); RBC Distribution Width CV 13.3 % (11.6-14.6); RBC Distribution Width SD 42.4 fl (35.1-43.9); Red Blood Count 4.38 M/mm3 (4.2-5.4); White Blood Count 8.7 K/mm3 (4.4-11.0)
[2018-07-13 05:44] LABS: POSITIVE COUNT NO; POSITIVE DIFFERENTIAL NO; POSITIVE MORPHOLOGY NO
--- NOTE | 2018-07-13 06:08 | PCM.HP.OB ---
- Problem List (1) SROM (spontaneous rupture of membranes) Status: Acute (2) Hypothyroidism affecting Status: Acute Qualifiers: Comment: Check q trimester. TSH elevated, thyroxine normal (3) GBS (group B Streptococcus carrier), +RV culture, currently Status: Acute Comment: PCN in labor (4) Advanced maternal age (AMA) in Status: Acute Comment: normal NIPT. growth us at 36 weeks (5) , high-risk, assisted reproductive technology Status: Acute Comment: PRR YASMIN boy PC Aodhan Moo. CHANDLER RGI (6) Status: Acute Qualifiers: Comment: normal NIPT. ntd screening negative. Carrier screening negative. Anatomy US normal Maximo hahn History Date of Admission: 07/13/18 Final YASMIN: 07/14/18 Gestational age: 39 Weeks and 6 Days History of this : This is a 38 year-old, , at 39 weeks gestational age presents with SROM clear fluid. she has had a complicated by infertility and AMA. she denies any vb admits good fm and irregular ctx. 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 referral to I in [place], [facility] FSH estradiol TSH PRL done Surgical History: Surgical History (Last Reviewed 07/10/18 @ 13:13 by Sarahi Barrera) History of appendectomy Z98.890, Z90.49 Status post hysteroscopic polypectomy Z98.890 Allergies No Known Allergies Allergy (Verified 07/10/18 13:12) Home Medications: Home Medications vitamin#30 30 mg iron-10 mg iron-folic acid 1 mg-omg3 capsule 1 cap PO DAILY cap 04/02/18 Levothyroxine Sodium 112 mcg PO DAILY 07/13/18 Levothyroxine [Synthroid] 125 mcg PO DAILY 07/13/18 Smoking Status: Former smoker Alcohol: None Number of Fetus(es): 1 Heart Tracin moderate variability reactive no decelerations category I tracing [place]: irregular History Past Pregnancies: Past Pregnancies Delivery Date Name GA/Weeks Outcome Route Weight Infant Gender Labor Length Anesthesia Delivery Location Provider FOB Labs: Mom's Labs & Results 07/13/18 07/13/18 05:25 05:25 WBC 8.7 RBC 4.38 Hgb 13.2 Hct 37.8 MCV 86.3 MCH 30.1 MCHC 34.9 RDW 13.3 RDW Differential 42.4 Plt Count 226 MPV 9.1 Immature Gran % (Auto) 0.200 Neut % (Auto) 67.3 Lymph % (Auto) 24.9 [place] % (Auto) 6.0 Eos % (Auto) 1.4 Baso % (Auto) 0.2 Absolute Neuts (auto) 5.9 Absolute Lymphs (auto) 2.17 Total Counted Not Reportable Blood Type Pending Antibody Screen Pending Course Did the patient receive Yes care? Labs Blood Type: B RH: POSITIVE RPR/VDRL/Syphilis Nonreactive Rubella status Immune HbSAg Negative Date Done: 12/04/17 Chlamydia Negative Gonorrhea Negative HIV/AIDS Non-Reactive Group B Strep: Positive Current Obstetrical History Gestational Diabetes No Incompetent Cervix No Infertility No IUGR No Macrosomia No Hypertension/Pre-eclampsia No Placenta Previa/Abruption No PTL/PROM No Uterine anomaly Yes: retroverted uterus Oligohydramnios No Polyhydramnios No Multiple gestation No Past Medical History Asthma No Diabetes No Hypertension No Heart disease No Mitral valve prolapse No Neurologic/Seizure disorder/ No Migraines Kidney disease No Liver disease No Varicosities Yes: d/t Clotting disorders/Hx of DVT No Thyroid Dysfunction Yes: hypothyroidism Other medical diseases No Psychiatric disorders No Major trauma No Abnormal PAP smear No Sleep apnea No Mammogram in the last 2 years No Social History Marital Status: Alleged father Moo Hx Smoking No Smoking Status Former smoker Expected Delivery Method: Spontaneous Vaginal Review of Systems Constitutional: Denies: Fever, Malaise Eyes: Denies: Blurred vision, Vision Change HEENT: Denies: Head Aches, Visual Changes Cardiovascular: Denies: Chest Pain, Palpitations Respiratory: Denies: Cough, Shortness of Breath, Wheezing Gastrointestinal: Denies: Abdominal Pain, Diarrhea, Nausea, Vomiting Genitourinary: Denies: Dysuria, Hematuria Musculoskeletal: Denies: Joint Pain, Muscle pain Skin: Denies: Lesions, Rash Neurological: Denies: Blurred vision, Focal weakness, Headaches Psychiatric: Denies: Anxiety, Depression Endocrine: Denies: Heat/ Cold Intolerance Hematologic/ Lymphatic: Denies: Easy Bruising, Easy Bleeding Physical Exam General: Alert, Cooperative, No apparent distress HEENT: Atraumatic, Normocephalic. Negative for: Thyromegaly, Lymphadenopathy Cardiovascular: Regular rate Lungs: Normal air movement Abdomen: Soft, Non Tender, Gravid Neurological: Deep Tendon Reflexes 2+/4 and Symmetrical, Neuro grossly intact. Negative for: Clonus ENGINE ROOM HELPER: Normal external genitalia. Negative for: Vulvar lesions Estimated gestational size: Appropriate for gestational size Presentation: Cephalic Cervix Dilation (cm): 2 Assessment/Plan All Active Problems (Last Reviewed 07/10/18 @ 13:13 by Sarahi Barrera) SROM (spontaneous rupture of membranes) (Acute) Hypothyroidism affecting (Acute) GBS (group B Streptococcus carrier), +RV culture, currently (Acute) Advanced maternal age (AMA) in (Acute) , high-risk, assisted reproductive technology (Acute) (Acute) This is a 38 year-old, at 39 weeks gestational age 6 days presents with SROM Patient presents IAL, plan expectant management for , pit PRN if needed. Pain management: open to epidural. GBS positive plan IV PCN. Management of any complications: none I have reviewed the [facility] and made any clinically relevant updates.
--- NOTE | 2018-07-13 06:11 | HP.PCM_ITS ---
- Problem List (1) SROM (spontaneous rupture of membranes) Status: Acute (2) Hypothyroidism affecting Status: Acute Qualifiers: Comment: Check q trimester. TSH elevated, thyroxine normal (3) GBS (group B Streptococcus carrier), +RV culture, currently Status: Acute Comment: PCN in labor (4) Advanced maternal age (AMA) in Status: Acute Comment: normal NIPT. growth us at 36 weeks (5) , high-risk, assisted reproductive technology Status: Acute Comment: PRR YASMIN boy PC Aodhan Moo. CHANDLER RGI (6) Status: Acute Qualifiers: Comment: normal NIPT. ntd screening negative. Carrier screening negative. Anatomy US normal Maximo hahn History Date of Admission: 07/13/18 Final YASMIN: 07/14/18 Gestational age: 39 Weeks and 6 Days History of this : This is a 38 year-old, , at 39 weeks gestational age presents with SROM clear fluid. she has had a complicated by infertility and AMA. she denies any vb admits good fm and irregular ctx. 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 referral to I in [place], [facility] FSH estradiol TSH PRL done Surgical History: Surgical History (Last Reviewed 07/10/18 @ 13:13 by Sarahi Barrera) History of appendectomy Z98.890, Z90.49 Status post hysteroscopic polypectomy Z98.890 Allergies No Known Allergies Allergy (Verified 07/10/18 13:12) Home Medications: Home Medications vitamin#30 30 mg iron-10 mg iron-folic acid 1 mg-omg3 capsule 1 cap PO DAILY cap 04/02/18 Levothyroxine Sodium 112 mcg PO DAILY 07/13/18 Levothyroxine [Synthroid] 125 mcg PO DAILY 07/13/18 Smoking Status: Former smoker Alcohol: None Number of Fetus(es): 1 Heart Tracin moderate variability reactive no decelerations category I tracing [place]: irregular History Past Pregnancies: Past Pregnancies Delivery Date Name GA/Weeks Outcome Route Weight Infant Gender Labor Length Anesthesia Delivery Location Provider FOB Labs: Mom's Labs & Results 07/13/18 07/13/18 05:25 05:25 WBC 8.7 RBC 4.38 Hgb 13.2 Hct 37.8 MCV 86.3 MCH 30.1 MCHC 34.9 RDW 13.3 RDW Differential 42.4 Plt Count 226 MPV 9.1 Immature Gran % (Auto) 0.200 Neut % (Auto) 67.3 Lymph % (Auto) 24.9 [place] % (Auto) 6.0 Eos % (Auto) 1.4 Baso % (Auto) 0.2 Absolute Neuts (auto) 5.9 Absolute Lymphs (auto) 2.17 Total Counted Not Reportable Blood Type Pending Antibody Screen Pending Course Did the patient receive Yes care? Labs Blood Type: B RH: POSITIVE RPR/VDRL/Syphilis Nonreactive Rubella status Immune HbSAg Negative Date Done: 12/04/17 Chlamydia Negative Gonorrhea Negative HIV/AIDS Non-Reactive Group B Strep: Positive Current Obstetrical History Gestational Diabetes No Incompetent Cervix No Infertility No IUGR No Macrosomia No Hypertension/Pre-eclampsia No Placenta Previa/Abruption No PTL/PROM No Uterine anomaly Yes: retroverted uterus Oligohydramnios No Polyhydramnios No Multiple gestation No Past Medical History Asthma No Diabetes No Hypertension No Heart disease No Mitral valve prolapse No Neurologic/Seizure disorder/ No Migraines Kidney disease No Liver disease No Varicosities Yes: d/t Clotting disorders/Hx of DVT No Thyroid Dysfunction Yes: hypothyroidism Other medical diseases No Psychiatric disorders No Major trauma No Abnormal PAP smear No Sleep apnea No Mammogram in the last 2 years No Social History Marital Status: Alleged father Moo Hx Smoking No Smoking Status Former smoker Expected Delivery Method: Spontaneous Vaginal Review of Systems Constitutional: Denies: Fever, Malaise Eyes: Denies: Blurred vision, Vision Change HEENT: Denies: Head Aches, Visual Changes Cardiovascular: Denies: Chest Pain, Palpitations Respiratory: Denies: Cough, Shortness of Breath, Wheezing Gastrointestinal: Denies: Abdominal Pain, Diarrhea, Nausea, Vomiting Genitourinary: Denies: Dysuria, Hematuria Musculoskeletal: Denies: Joint Pain, Muscle pain Skin: Denies: Lesions, Rash Neurological: Denies: Blurred vision, Focal weakness, Headaches Psychiatric: Denies: Anxiety, Depression Endocrine: Denies: Heat/ Cold Intolerance Hematologic/ Lymphatic: Denies: Easy Bruising, Easy Bleeding Physical Exam General: Alert, Cooperative, No apparent distress HEENT: Atraumatic, Normocephalic. Negative for: Thyromegaly, Lymphadenopathy Cardiovascular: Regular rate Lungs: Normal air movement Abdomen: Soft, Non Tender, Gravid Neurological: Deep Tendon Reflexes 2+/4 and Symmetrical, Neuro grossly intact. Negative for: Clonus CHILD AND FAMILY THERAPIST: Normal external genitalia. Negative for: Vulvar lesions Estimated gestational size: Appropriate for gestational size Presentation: Cephalic Cervix Dilation (cm): 2 Assessment/Plan All Active Problems (Last Reviewed 07/10/18 @ 13:13 by Sarahi Barrera) SROM (spontaneous rupture of membranes) (Acute) Hypothyroidism affecting (Acute) GBS (group B Streptococcus carrier), +RV culture, currently (Acute) Advanced maternal age (AMA) in (Acute) , high-risk, assisted reproductive technology (Acute) (Acute) This is a 38 year-old, at 39 weeks gestational age 6 days presents with SROM Patient presents IAL, plan expectant management for , pit PRN if needed. Pain management: open to epidural. GBS positive plan IV PCN. Management of any complications: none I have reviewed the [facility] and made any clinically relevant updates.
[2018-07-13] MEDS: Oxytocin 30 units/NS 500 ml 30 UNITS/500 ML IV.SOLN IV (08:21)
[2018-07-13] MEDS: Acetaminophen 325 MG Tablet PO (15:02)
[2018-07-13] MEDS: Nalbuphine 10 MG/ML Ampul IV (16:46)
--- NOTE | 2018-07-13 17:23 | PN_ITS ---
Progress Note forbag rupture and iupc placed fht 130moderate variability reactive no decelerations category I tracing [place]: regular continue pit per protocol
--- NOTE | 2018-07-13 17:23 | PCM.PN.BLA ---
Progress Note forbag rupture and iupc placed fht 130moderate variability reactive no decelerations category I tracing [place]: regular continue pit per protocol
[2018-07-13] MEDS: fentaNYL-bupivacaine (epidural) 100 ML BAG EPIDURAL (18:57)
[2018-07-14] MEDS: Oxytocin 30 units/NS 500 ml 30 UNITS/500 ML IV.SOLN 334 UNITS IV (00:04)
--- NOTE | 2018-07-14 00:27 | PCM.OPRPT ---
Problem List (1) SROM (spontaneous rupture of membranes) Status: Acute (2) Hypothyroidism affecting Status: Acute Qualifiers: Comment: Check q trimester. TSH elevated, thyroxine normal (3) GBS (group B Streptococcus carrier), +RV culture, currently Status: Acute Comment: PCN in labor (4) Advanced maternal age (AMA) in Status: Acute Comment: normal NIPT. growth us at 36 weeks (5) , high-risk, assisted reproductive technology Status: Acute Comment: PRR YASMIN boy PC Aodhan Moo. CHANDLER RGI (6) Status: Acute Qualifiers: Comment: normal NIPT. ntd screening negative. Carrier screening negative. Anatomy US normal Maximo hahn Report of Operation Date of Procedure: 07/13/18 Pre-Operative Diagnosis: srom Post-Operative Diagnosis: same Surgery/Procedure Performed:: Vaginal Delivery Maternal Presentation: Active Labor, Spontaneous Rupture of Membranes 38-year-old at 39 weeks 6 days presents with spontaneous rupture of membranes Method of Induction: Pitocin Amniotic Membrane Rupture Type: Spontaneous at home Amniotic Fluid Description: Clear Final YASMIN: 07/14/18 Gestational age: 39w6d Date of Procedure: 07/13/18 Pre-Operative Diagnosis: srom Post-Operative Diagnosis: srom Surgery/ Procedure Performed: Spontaneous Vaginal Delivery Type of Anesthesia: Epidural Description of Procedure: Patient was complete and upon lifting the left leg delivered the head in the [place] presentation. The anterior and posterior shoulders delivered without complication followed by the rest of the infant and the was placed on the maternal abdomen. Delayed cord clamping was employed for approximately 60 seconds. Cord was clamped and cut and gentle traction was applied to the cord and the placenta delivered spontaneously immediately following it was noted to be intact with three-vessel cord. The perineum and vagina were inspected and noted to have a small second-degree perineal laceration that was repaired in the usual fashion with 3-0 Vicryl repeat. EBL was 400 cc. Patient and tolerated delivery well. Presentation: CARMITA Placental Delivery Description: Spontaneous Placenta Disposition: [facility] Cord Vessel Description: 3 Vessels Cord Entanglement: None Estimated Blood Loss: 400 Infant A gender: Male Episiotomy Description: None Laceration: Perineal Extension/lac, 2nd degree Medications given after delivery: IV Pitocin Complications: None
[2018-07-14] MEDS: Oxytocin 30 units/NS 500 ml 30 UNITS/500 ML IV.SOLN 167 UNITS IV (00:34)
[2018-07-14 03:44] VITALS: BP 105/67; PULSE 88; RESP 18; TEMP 36.5; O2SAT 99
[2018-07-14] MEDS: Naproxen 250 MG Tablet 500 MG PO ×2 (04:44→14:55)
[2018-07-14 07:45] VITALS: BP 119/60; PULSE 92; RESP 16; TEMP 36.7; O2SAT 97
--- NOTE | 2018-07-14 08:20 | PCM.PN.OB ---
Patient Problems: Active and Suspected Problems (Last Reviewed 07/10/18 @ 13:13 by Sarahi Barrera) SROM (spontaneous rupture of membranes) (Acute) Subjective: doing well no complaints pain controlled no CP SOB N V ambulating well tolerating po lochia moderate, going well - Physical Exam General: Alert, Oriented x3 Vital Signs Temp Pulse Resp BP Pulse Ox 98.1 F 92 16 119/60 97 07/14/18 07:45 07/14/18 07:45 07/14/18 07:45 07/14/18 07:45 07/14/18 07:45 Oxygen Delivery Method Room Air Weight: 211 lb 10.3 oz Body Mass Index (BMI) 31.2 Intake and Output for Last 24 Hours 07/12/18 07/13/18 07/14/18 23:59 23:59 23:59 Intake Total 2631 / 2631 259 / 259 Output Total 900 / 900 1500 / 1500 Balance 1731 / 1731 -1241 / -1241 Medical Necessity - Tobacco Use Smoking Status: Former smoker Assessment/Plan All Active Problems (Last Reviewed 07/10/18 @ 13:13 by Sarahi Barrera) SROM (spontaneous rupture of membranes) (Acute) Hypothyroidism affecting (Acute) GBS (group B Streptococcus carrier), +RV culture, currently (Acute) Advanced maternal age (AMA) in (Acute) , high-risk, assisted reproductive technology (Acute) (Acute) s/p PPD # 1 1. routine post delivery care 2. breast feeding- support given 3. rh positive 4. rubella immune
[2018-07-14 11:24] VITALS: BP 109/58; PULSE 78; RESP 16; TEMP 36.9; O2SAT 99
[2018-07-14 15:07] VITALS: BP 105/62; PULSE 82; RESP 16; TEMP 36.6; O2SAT 99
[2018-07-14 20:30] VITALS: BP 110/70; PULSE 78; RESP 18; TEMP 36.9
[2018-07-14] MEDS: Acetaminophen 500 MG Tablet 1000 MG PO (20:52)
[2018-07-15 02:15] VITALS: BP 112/64; PULSE 75; RESP 16; TEMP 36.6
[2018-07-15] MEDS: Naproxen 250 MG Tablet 500 MG PO (07:20)
[2018-07-15 07:21] VITALS: BP 111/64; PULSE 69; RESP 16; TEMP 36.7; O2SAT 99
--- NOTE | 2018-07-15 10:06 | PCM.PN.OB ---
Patient Problems: Active and Suspected Problems (Last Reviewed 07/10/18 @ 13:13 by Sarahi Barrera) SROM (spontaneous rupture of membranes) (Acute) Subjective: doing well no complaints pain controlled no CP SOB N V ambulating well tolerating po lochia moderate, going well - Physical Exam General: Alert, Oriented x3 Vital Signs Temp Pulse Resp BP Pulse Ox 98.1 F 69 16 111/64 99 07/15/18 07:21 07/15/18 07:21 07/15/18 07:21 07/15/18 07:21 07/15/18 07:21 Oxygen Delivery Method Room Air Weight: 211 lb 10.3 oz Body Mass Index (BMI) 31.2 Intake and Output for Last 24 Hours 07/13/18 07/14/18 07/15/18 23:59 23:59 23:59 Intake Total 2631 / 2631 259 / 259 Output Total 900 / 900 1500 / 1500 Balance 1731 / 1731 -1241 / -1241 Medical Necessity - Tobacco Use Smoking Status: Former smoker Assessment/Plan All Active Problems (Last Reviewed 07/10/18 @ 13:13 by Sarahi Barrera) SROM (spontaneous rupture of membranes) (Acute) Hypothyroidism affecting (Acute) GBS (group B Streptococcus carrier), +RV culture, currently (Acute) Advanced maternal age (AMA) in (Acute) , high-risk, assisted reproductive technology (Acute) (Acute) s/p PPD # 2 1. routine post delivery care 2. breast feeding- support given 3. rh positive 4. rubella immune
--- NOTE | 2018-07-15 10:08 | DCINST_ITS ---
Discharge Diet: No Restrictions Discharge Activity: Return to Normal Activity, May not drive while taking narcotic pain medications., May Shower May resume sexual activity in: 4-6 weeks Call your doctor if your incision/area has: Continuous Slow Oozing, Sudden Increased Bleeding, Increased Pain/ Swelling, Increased Redness, Foul Smelling Discharge Additional Instructions: If you experience any of the following, contact your healthcare provider. * Bleeding that soaks a pad every hour for 2 hours * Fever 100.4 or higher * Unrelieved incision or abdominal pain * Swelling, redness, discharge or bleeding from your incision or episiotomy site * Your incision begins to separate * Problems urinating (including inability to urinate or burning while urinating). * Visual changes * Severe headache * Flu-like symptoms * Pain or redness in one of both of your breasts * Pain, warmth, tenderness or swelling in your legs, especially the calf area * Frequent nausea and vomiting * Symptoms of depression or anxiety If you experience any of the following, call 911 or go to the nearest Emergency Room. * Chest pain * Problems breathing * Seizure activity * Partial or complete paralysis of a body part, slurred speech, weakness or drooping of the face, or a sudden inability to walk or hold your balance Allergies/Adverse Reactions: Allergies No Known Allergies Allergy (Verified 07/10/18 13:12) Medications to take at Discharge vitamin#30 30 mg iron-10 mg iron-folic acid 1 mg-omg3 capsule 1 cap PO DAILY cap 04/02/18 Levothyroxine Sodium 112 mcg PO DAILY 07/13/18 Levothyroxine [Synthroid] 125 mcg PO DAILY 07/13/18 Levothyroxine [Synthroid] 88 mcg PO DAILY #30 tablet 07/15/18 The following prescriptions were given: Levothyroxine [Synthroid] 88 mcg PO DAILY #30 tablet Orders to be completed after discharge: Thyroid Stim Hormone (TSH) Location: Laboratory Please Follow Up With: Isa Campos MD - [phone] When: Call to make an appointment with your doctor in 6 weeks. If you had elevated Blood pressure or 4th degree laceration you will need to be seen in 2 weeks. Primary Care Physician: Care Physician,No Primary [Primary Care Provider] - Test Results: Test results from this visit will be discussed in further detail at your follow- up appointment, if applicable.
== END 2018-07-15 10:35 | disposition home or self-care (01) | DRG 807 ==
PROVIDERS: Admitting Provider Obstetrics & Gynecology; Referring Provider Obstetrics & Gynecology; Visit Provider Obstetrics & Gynecology
DX: O99.284 Endocrine, nutritional and metabolic diseases complicating childbirth (principal); Z37.0 Single live birth; E03.9 Hypothyroidism, unspecified; Z3A.39 39 weeks gestation of pregnancy; O99.824 Streptococcus B carrier state complicating childbirth; O70.1 Second degree perineal laceration during delivery; Z87.891 Personal history of nicotine dependence
CPT/HCPCS: 59025; 59050; 85025; 86850; 86900; 99218; J7120; G0378

== ENCOUNTER → 2018-08-15 12:32 | Outpatient (CLI) | payer OTHER, SELFPAY ==
[2018-08-15 13:34] LABS: Thyroid Stim Hormone (TSH) 0.03 uIU/mL (0.358-3.74)
== END ==
PROVIDERS: Referring Provider Obstetrics & Gynecology; Visit Provider Obstetrics & Gynecology
DX: E07.9 Disorder of thyroid, unspecified (principal)
CPT/HCPCS: 36415; 84443

== ENCOUNTER → 2018-11-23 14:30 | Outpatient (CLI) | payer OTHER, SELFPAY ==
[2018-08-24 13:54] VITALS: BMI 31.2
[2018-11-23 16:12] LABS: Thyroid Stim Hormone (TSH) 0.87 uIU/mL (0.358-3.74)
== END ==
PROVIDERS: Referring Provider Obstetrics & Gynecology; Visit Provider Obstetrics & Gynecology
DX: O99.280 Endocrine, nutritional and metabolic diseases complicating pregnancy, unspecified trimester (principal); E03.9 Hypothyroidism, unspecified; Z3A.00 Weeks of gestation of pregnancy not specified
CPT/HCPCS: 36415; 84439; 84443

== ENCOUNTER → 2019-06-04 14:24 | Outpatient (CLI) | payer OTHER, SELFPAY ==
[2019-05-30 15:02] VITALS: BMI 31.2
--- NOTE | 2019-06-04 14:24 | US_ITS ---
STUDY: ULTRASOUND BREAST - RIGHT REASON FOR EXAM: Female, 39 years old. Palpable lump in the right breast. TECHNIQUE: Axial and longitudinal images of the RIGHT breast were performed with a high resolution ultrasound transducer. # OF IMAGES: 10 COMPARISON: Comparison is made with prior mammogram done earlier in the day. FINDINGS: RIGHT Breast: The upper outer quadrant of the right breast was examined by ultrasound. No sonographic abnormality is seen. US/Breast Limited Unilateral IMPRESSION: No sonographic abnormality is seen. ASSESSMENT CATEGORY: BIRADS Category 1: Negative. A letter regarding these results will be sent to the patient by the facility within 30 days. Electronically Signed: Lev Johnson, at 15:00 EDT , Service support ,
--- NOTE | 2019-06-04 14:24 | BI_ITS ---
MAMMOGRAPHY - BILATERAL DIAGNOSTIC REASON FOR EXAM: Female, 39 years old. 3 week history of right breast lump at the 10:00 position. The patient recently finished breast-feeding. PERTINENT HISTORY: Mother with breast cancer. Aunt with breast cancer. TECHNIQUE: Digital bilateral breast trinity (3D mammographic acquisition) in the CC and MLO projections. 2-D mediolateral oblique (MLO) and craniocaudad (CC) views of both breasts were obtained. CAD: Full Field Digital Mammography with Computer Added Detection was performed. COMPARISON: None. Baseline examination. FINDINGS: Breast Composition: The breasts are heterogeneously dense, which may obscure small masses. There are no dominant masses or suspicious calcifications. No other significant abnormalities are identified. BI/DIAG MAMM W/CAD, BILAT IMPRESSION: Negative diagnostic mammogram. With the patient''s history of a palpable amount in the right breast, correlation with ultrasound is recommended. ASSESSMENT CATEGORY: BIRADS Category 0: Incomplete. Need additional imaging evaluation. A letter regarding these results will be sent to the patient by the facility within 30 days. Approximately 10% of breast cancers are not detected by mammography. A normal mammogram should not delay biopsy of a clinically suspicious abnormality. Electronically Signed: Lev Johnson, at 15:32 EDT , Service support ,
== END ==
PROVIDERS: PCP Internal Medicine; Referring Provider Nurse Practitioner Women's Health; Visit Provider Nurse Practitioner Women's Health
DX: N63.10 Unspecified lump in the right breast, unspecified quadrant (principal); Z80.3 Family history of malignant neoplasm of breast
CPT/HCPCS: 76642; 77062; 77066; G0279

== ENCOUNTER → 2019-08-03 12:12 | Outpatient (CLI) | payer OTHER, SELFPAY ==
[2019-08-03 11:02] VITALS: BMI 31.2
[2019-08-07 15:58] LABS: HPV APTIMA, High Risk Negative (Negative)
== END ==
PROVIDERS: PCP Internal Medicine; Referring Provider Obstetrics & Gynecology; Visit Provider Obstetrics & Gynecology
DX: Z12.4 Encounter for screening for malignant neoplasm of cervix (principal)
CPT/HCPCS: 87624; 88175; G0145

== ENCOUNTER → 2020-08-18 15:46 | Outpatient (CLI) | payer OTHER, SELFPAY ==
[2020-08-18 15:01] VITALS: BMI 31.2
[2020-08-18 16:26] LABS: T4 Free Direct 1.19 ng/dL (0.76-1.46)
== END ==
PROVIDERS: PCP Internal Medicine; Referring Provider Obstetrics & Gynecology; Visit Provider Obstetrics & Gynecology
DX: E07.9 Disorder of thyroid, unspecified (principal)
CPT/HCPCS: 36415; 84439; 84443

== ENCOUNTER 2022-04-11 18:08 | Emergency (ER) | payer BC, SELFPAY ==
[2022-04-11 18:09] VITALS: BP 124/87; PULSE 74; RESP 16; TEMP 36.6; O2SAT 100; BMI 26.6
--- NOTE | 2022-04-11 19:20 | ED.VIS.LOWEX ---
HPI History of Present Illness Chief Complaint: Lower Extremity Injury Informant: patient Narrative Narrative: Sent from urgent care for evaluation. States was at work standing felt sudden pain posterior left thigh there was a knot in this. She placed ice. She returned from [place] 8 days ago. There is no calf pain or swelling. History of superficial thrombophlebitis with surgeries more in the lower legs. Denies any new activities over the last couple days no exercises no trauma. She states there is a bruise in that area. No chest pains or shortness of breath. She just wanted reassurance therefore sent here from urgent care. Prior similar symptoms: No PFSH PFSH Medical History Anxiety disorder Bartholin's cyst Secondary female infertility Home Medications levothyroxine 88 mcg tablet 88 mcg PO DAILY #30 tabs 07/15/18 [Rx Last Taken Unknown] escitalopram oxalate 10 mg tablet (Lexapro) 10 mg PO DAILY 08/03/19 [History Last Taken Unknown] Allergy/AdvReac Type Severity Reaction Status Date / Time No Known Allergies Allergy Verified 08/03/19 11:01 Family History Mother Breast cancer Surgical History H/O vascular surgery History of appendectomy Status post hysteroscopic polypectomy Social History Smoking Status: Never smoker details: social substance use type: does not use what type of physical activity do you participate in: walking and running frequency: 3-4 times per week duration: 30-45 minutes/day seatbelt use: always do you feel safe at home: Yes additional social history: Moo- works at [employer] [facility] ED Constitutional Constitutional ED: Denies chills, fever(s) or sweats Eyes Eyes: Denies change in vision ENT ENT ED: Denies dysphagia or sore throat Cardiovascular Cardiovascular: Denies chest pain, leg edema, palpitations or racing heartbeat Respiratory/Chest Respiratory/Chest: Denies cough, dyspnea or dyspnea on exertion Gastrointestinal Gastrointestinal: Denies abdominal pain, diarrhea, nausea or vomiting Genitourinary Genitourinary ED: Denies dysuria, hematuria or urinary frequency Musculoskeletal Musculoskeletal: Reports extremity pain; Denies back pain or neck pain Integumentary Denies rash or wounds Neurologic Neurologic: Denies headache(s), paresthesias or weakness EXAM Physical Exam Const Vital Signs: 04/11/22 18:09 Temperature 97.8 F Temperature Source Temporal Pulse Rate 74 Respiratory Rate 16 Blood Pressure 124/87 H Blood Pressure Mean 99 Pulse Ox 100 Oxygen Delivery Method Room Air Positive well nourished and well developed General Appearance ED: well developed and NAD HEENT Reports moist mucous membranes normocephalic and atraumatic Eyes PERRL, EOMs intact bilaterally and conjunctivae normal General Eye ED: Yes normal appearance of both eyes Neck no lymphadenopathy and supple General: Negative for tenderness Chest Wall Chest: Negative for tenderness Resp normal respiratory effort and normal air movement Effort and Inspection: symmetric chest movement; Negative for respiratory distress Cardio regular rate, regular rhythm and no murmurs Peripheral Pulses: pulses 2+ throughout GI normal to inspection, nondistended, normoactive bowel sounds and non-tender Palpation: Negative for guarding or rebound tenderness present Back/Spine no CVA tenderness and no thoracic nor lumbar tenderness Extremity Extremity Narrative: Left lower extremity: Posterior thigh circumferential ecchymosis mid posterior thigh, skin intact. There is no medial thigh tenderness no calf or popliteal tenderness. Pulses intact distally. General Extremety ED: Negative for edema or tenderness General Extremity: Negative for edema Neuro oriented x3 and no sensory deficits noted Sensorium / Orientation: awake and alert Skin no rashes or lesions noted and no wounds MDM MDM MDM Narrative Medical decision making narrative: Differential in this area is soft tissue contusion versus potential superficial thrombophlebitis. This is away from regions of her for concerns for DVT. I performed a bedside ultrasound over the ecchymosis all the venous systems were compressible therefore not superficial thrombophlebitis. I checked the popliteal region and compressible vein. She is reassured she will use ibuprofen or Tylenol as needed. Outpatient follow-up. All questions were answered. Discharge Plan Triage Chief Complaint: Lower Extremity Injury ED Provider: Gelacio Parekh Dx/Rx/DC Orders Clinical Impression: Contusion of left thigh, initial encounter Instructions: Bruises (Contusions) Prescriptions: No Action escitalopram oxalate [Lexapro] 10 mg tablet 10 mg PO DAILY levothyroxine 88 MCG tablet 88 mcg PO DAILY Qty: 30 12RF Primary Care Provider: Tatiana Cabrera Referrals: Tatiana Cabrera MD [Primary Care Provider] - Activity Restrictions/Additional Instructions: Bedside ultrasound shows no signs of thrombosis if even superficial over your contusion area. This is away from regions of deep vein thrombosis. Use Tylenol and ibuprofen as needed. Follow-up with your doctor. Disposition Disposition: Home, Self Care Discharge Date/Time: 04/11/22 19:40
== END 2022-04-11 19:40 | disposition home or self-care (01) ==
PROVIDERS: Emergency Provider Emergency Medicine; PCP Internal Medicine; Visit Provider Emergency Medicine
DX: S70.12XA Contusion of left thigh, initial encounter (principal); F41.9 Anxiety disorder, unspecified; X58.XXXA Exposure to other specified factors, initial encounter
CPT/HCPCS: 99282

== ENCOUNTER → 2023-01-25 | Outpatient (CLI) | payer BC, SELFPAY ==
[2023-01-25 11:36] LABS: Absolute Lymphocyte Count 1.84 X10^3/uL (0.83-4.51); Basophil# 0.05 X10^3/uL; Basophil% 0.8 % (0-1); Eosinophil# 0.08 X10^3/uL; Eosinophils% 1.2 % (0-5); Hematocrit 41.6 % (37-47); Hemoglobin 13.9 g/dL (12.0-15.0); Lymphocyte # 1.84 X10^3/ul (0.83-4.51); Lymphocyte % 28.2 % (19-41); Mean Corp Hgb Conc 33.4 g/dL (32-36); Mean Corpuscular Hgb 29.6 pg (27.0-32.0); Mean Corpuscular Volume 88.5 fL (81-99); Mean Platelet Vol. 8.6 fl (6.2-12.0); Monocyte# 0.52 X10^3/uL; NRBC Flagged by Analyzer 0 % (0-5); Neutrophil # 4.02 X10^3/uL (2.7-7.7); Neutrophil % 61.5 % (47-70); Platelet Count 359 K/mm3 (150-450); RBC Distribution Width CV 12.3 % (11.6-14.6); RBC Distribution Width SD 40.1 fl (35.1-43.9); White Blood Count 6.5 K/mm3 (4.4-11.0)
== END | disposition home or self-care (01) ==
LOC: PAVLAB 11:11
PROVIDERS: PCP Internal Medicine; Referring Provider Obstetrics & Gynecology; Visit Provider Obstetrics & Gynecology
DX: N93.9 Abnormal uterine and vaginal bleeding, unspecified (principal)
CPT/HCPCS: 36415; 84443; 85025

== ENCOUNTER → 2023-01-26 | Outpatient (CLI) | payer BC, SELFPAY ==
--- NOTE | 2023-01-26 18:17 | US_ITS ---
INDICATION: AUB EXAMINATION: US Pelvis Non OB Complete With Transvaginal Imaging TECHNIQUE: Transabdominal and transvaginal pelvic ultrasound was performed. Grayscale, spectral waveform, and color flow Doppler evaluation of the adnexa. COMPARISON: None. FINDINGS: UTERUS: Retroverted. The uterus measures 10 x 6.3 x 5 cm. There is a solitary 6 mm fibroid in the posterior uterine wall. The endometrial stripe measures 5 mm in AP diameter which is within normal limits. RIGHT OVARY: Measures 3.1 x 2.1 x 1.5 cm. Non-enlarged, normal echogenicity. There is normal arterial inflow and venous outflow present in the right ovary. LEFT OVARY: Measures 4.2 x 3 x 2.5 cm. Non-enlarged, normal echogenicity. There is normal arterial inflow and venous outflow present in the left ovary. 2.3 cm dominant follicle. FREE FLUID: Trace. US/Pelvic w/ Transvaginal IMPRESSION: 6 mm fibroid in the posterior uterine body. Otherwise normal bilateral ovaries and uterus. Electronically Signed: Darin Mehta MD at 19:05 EDT ,
== END | disposition home or self-care (01) ==
LOC: US 18:14
PROVIDERS: PCP Internal Medicine; Referring Provider Obstetrics & Gynecology; Visit Provider Obstetrics & Gynecology
DX: N93.9 Abnormal uterine and vaginal bleeding, unspecified (principal)
CPT/HCPCS: 76830; 76856

== ENCOUNTER → 2023-02-01 | Outpatient (CLI) | payer BC, SELFPAY ==
[2023-02-01 11:28] LABS: Glucose 90 mg/dL (74-106)
[2023-02-01 11:43] LABS: Hemoglobin A1c 4.9 % (3.8-5.6)
== END | disposition home or self-care (01) ==
LOC: LAB 10:07
PROVIDERS: PCP Internal Medicine; Referring Provider Obstetrics & Gynecology; Visit Provider Obstetrics & Gynecology
DX: R63.5 Abnormal weight gain (principal)
CPT/HCPCS: 36415; 82947; 83036; 83525

== ENCOUNTER → 2023-06-06 | Outpatient (CLI) | payer BC, SELFPAY ==
--- NOTE | 2023-06-06 10:47 | BI_ITS ---
MAMMOGRAPHY - BILATERAL SCREENING REASON FOR EXAM: Female, 43 years old. Routine annual screening examination. PERTINENT HISTORY: Mother with breast cancer. Aunt with breast cancer. TECHNIQUE: Digital bilateral breast nancy (3D mammographic acquisition) in the CC and MLO projections. 2-D mediolateral oblique (MLO) and craniocaudad (CC) views of both breasts were obtained. CAD: Full Field Digital Mammography with Computer Added Detection was performed. COMPARISON: Comparison is made with prior study June 04, 2019. FINDINGS: Breast Composition: The breasts are almost entirely fatty. There is a 4.5 mm x 9.3 mm well-defined nodule in the central lateral aspect of the right breast. Correlation with ultrasound is recommended. No other significant abnormalities are identified. BI/SCRN MAMM (CAD)W/NANCY BILAT IMPRESSION: 4.5 mm by 0.3 mm well-defined nodule in the central lateral aspect of the right breast. Correlation with ultrasound is recommended. ASSESSMENT CATEGORY: BIRADS Category 0: Incomplete. Need additional imaging evaluation. A letter regarding these results will be sent to the patient by the facility within 30 days. Approximately 10% of breast cancers are not detected by mammography. A normal mammogram should not delay biopsy of a clinically suspicious abnormality. [id number] Electronically Signed: Lev Johnson MD at 15:43 EDT ,
== END | disposition home or self-care (01) ==
LOC: OPBI 10:47
PROVIDERS: PCP Internal Medicine; Referring Provider Obstetrics & Gynecology; Visit Provider Obstetrics & Gynecology
DX: Z12.31 Encounter for screening mammogram for malignant neoplasm of breast (principal); Z80.3 Family history of malignant neoplasm of breast
CPT/HCPCS: 77063; 77067

== ENCOUNTER → 2023-06-08 | Outpatient (CLI) | payer BC, SELFPAY ==
--- NOTE | 2023-06-08 13:33 | US_ITS ---
STUDY: ULTRASOUND BREAST - RIGHT REASON FOR EXAM: Female, 43 years old. Abnormal screening mammogram. TECHNIQUE: Axial and longitudinal images of the RIGHT breast were performed with a high resolution ultrasound transducer. # OF IMAGES: 13 COMPARISON: Comparison is made with prior mammogram dated June 06, 2023 and prior sonogram of the right breast dated June 04, 2019. FINDINGS: RIGHT Breast: The central and inferior lateral aspect of the right breast was examined with ultrasound. There is a 1.7 cm x 1.4 cm x 0.5 cm benign containing lymph node. US/Breast Limited Unilateral IMPRESSION: 1.7 cm x 1.4 cm x 0.5 cm benign-appearing lymph node at the 7:00 position breast at 5 cm from the nipple. ASSESSMENT CATEGORY: BIRADS Category 2: Benign. A letter regarding these results will be sent to the patient by the facility within 30 days. Electronically Signed: Lev Johnson MD at 9:55 EDT ,
== END | disposition home or self-care (01) ==
PROVIDERS: PCP Internal Medicine; Referring Provider Obstetrics & Gynecology; Visit Provider Obstetrics & Gynecology
DX: N63.0 Unspecified lump in unspecified breast (principal); Z80.3 Family history of malignant neoplasm of breast
CPT/HCPCS: 76642

== ENCOUNTER → 2025-03-05 | Outpatient (CLI) | payer BC, SELFPAY ==
--- NOTE | 2025-03-05 12:15 | BI_ITS ---
EXAM: SCRN MAMM (CAD)W/NANCY BILAT DATE: 03/05/2025 CLINICAL HISTORY: F, Age 45 y/o , SCREENING Mother with breast cancer. Aunt with breast cancer. TECHNIQUE: Procedure Code: [id number] Modality: MG Procedure: SCRN MAMM (CAD)W/NANCY BILAT COMPARISON: Prior exam(s) dated June 06, 2023.. FINDINGS: TISSUE DENSITY: There are scattered areas of fibroglandular density. Bilateral Breast Mammographic Findings: No significant masses, calcifications or other abnormalities are identified. Stable 10 mm x 5.7 mm well-defined nodule in the upper central portion of the right breast. This was demonstrated to be a small lymph node on prior sonogram. No suspicious masses, areas of developing architectural distortion, or suspicious calcifications. There has been no significant interval change. BI/SCRN MAMM (CAD)W/NANCY BILAT IMPRESSION: Stable bilateral screening mammogram. OVERALL FINAL ASSESSMENT BI-RADS 2: BENIGN RECOMMENDATION: Routine annual follow-up in 1 Year Additional Recommendation none A letter with findings and recommendations will be mailed to the patient. Reading Location: [place] [id number]
--- OUTSIDE RECORDS SUMMARY | 2025-03-05 12:31 | XMS RPT_ITS | CCD ---
Author Organization [facility] Care Team Providers Care News Assistant Name Role Phone Ana Nunez Unavailable Unavailable PROVIDER, UNKNOWN Unavailable Unavailable No, PCP Unavailable Unavailable MOO MORGAN Attending Unavailable MARCANTHONY, ISA E Referring Unavailabl e [facility], Primary Care Unavailable Nico Xiao MD Primary Care Provider Nico Xiao MD Primary Care Provider Nico Xiao MD Primary Care Provider [phone] Nico Xiao Primary Care Provider [phone] Deborah, Dr. Simpson Referring Provider Dr. Isa Campos Attending Provider Dr. Nico Xiao Primary Care Provider Deborah, Dr. Simpson Referring Provider Dr. Isa Campos Attending Provider Nico Xiao Primary Care Unavailable Isa Campos Attending Unavailable Deborah, Nico Referring Unavailable Marcanthony, Isa Referring Unavailable Ganlacy, Nico Primary Care Unavailable Marcanthony, Isa Attending Unavailable Marcanthony, Isa Referring Unavailable Ganta, Nico Primary Care Unavailable Marcanthony, Isa Attending Unavailable Ganlacy, Nico Primary Care Unavailable Marcanthony, Isa Attending Unavailable Marcanthony, Isa Referring Unavailable Marcanthony, Isa Attending Unavailable Ganta, Nico Primary Care Unavailable Marcanthony, Isa Referring Unavailable Marcanthony, Isa Attending Unavailable Ganta, Nico Primary Care Unavailable Marcanthony, Isa Referring Unavailable Marcanthony, Isa Attending Unavailable Ganta, Nico Primary Care Unavailable Ganta, Nico Referring Unavailable Nico Xiao MD Primary Care Provider Jessica Zamorano PA-C Unavailable [phone] 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 Unavailable [phone] Merlyn Rucker PA-C Unavailable [facility] Primary Care Unavailable TREVER ASHFORD Attending Unavailable TREVER ASHFORD Referring Unavailable [facility] Primary Care Unavailable RICARDA BRAVO Attending Unavailable [facility] Primary [facility] Unavailable RICARDA BRAVO Referring Unavailable [facility] Primary Care Unavailable [facility] Attending Unavailable [facility] Primary [facility] Unavailable ROSALINDA GUTIERREZ Attending Unavailable [facility] Referring Unavailable [facility] Primary [facility] Unavailable Medications Current Medications Medication Drug Class(es) Dates Sig (Normalized) Sig (Original) FLUoxetine 20 mg oral capsule (20 sources) Serotonin Reuptake Inhibitor Start: 02-03-2023 End: 03-08-2024 take 1 capsule by mouth once daily FLUoxetine (PROZAC) 20 mg capsule Indications: Anxiety and depression Take 1 capsule by mouth once daily. 90 capsule 1 03/08/2024 Active Start: 01-30-2023 take 40 mg by mouth once daily Fluoxetine Active 40 MG PO DAILY January 30, 2023 1:00am Start: 01-11-2023 take 1 capsule by mo [facility] once daily FLUoxetine (PROZAC) 20 mg capsule Indications: Anxiety and depression , Mixed obsessional thoughts and acts Take 1 capsule by mouth once daily. 30 capsule 2 01/11/2023 Active Comment on above: Take 1 capsule by mo ut once daily. TAKE 1 CAPSULE BY [facility] EVERY DAY levothyroxine sodium 0.1 mg oral tablet (20 sources) l-Thyroxine Start: take 100 ug by mouth once daily Levothyroxine Active 100 MCG PO DAILY May 15, 2023 2:04pm Start: 08-10-2022 End: 03-08-2024 take 1 tablet by mouth once daily before breakfast SYNTHROID 100 mcg tablet Take 1 tablet by mouth daily before breakfast. 90 tablet 1 03/08/2024 Active Start: 01-04-2022 SYNTHROID 88 m cg tablet Take every day on empty stomach. 102 tablet 3 01/04/2022 Active Start: 07-15-2018 End: 05-15-2023 take 88 ug by mouth once daily Levothyroxine Discontin ued 88 MCG PO DAILY July 15, 2018 12:00am May 15, 2023 2:04pm Start: 05-14-2018 End: 08-24-2018 take 112 ug by mouth once daily Levothyroxine Disconti nued 112 MCG PO DAILY July 13, 2018 4:50am August 24, 2018 1:44pm monday, monday, , monday Start: 03-06-2018 End: 08-24-2018 take 112 ug by mouth three times weekly Levothyroxine Discontinued 125 MCG PO DAILY July 13, 2018 4:50am August 24, 2018 1:44pm take three times a week instead of 112mcg dosing monday, monday, monday Start: 01-16-2018 End: 04-02-2018 take 1 tablet by mouth once daily Levothyroxine (Synthroid) 112 mcg tablet Discontinued 112 MCG PO DAILY January 16, 2018 12:00am April 02, 2018 4:13pm Comment on above: TAKE 1 PILL DAILY ON EMPTY STOMACH ALL DAYS OF THE WEEK EXCEPT ON MONDAY TAKE 2 PILLS. Take every day on em pty stomach. Take 1 tablet by ember th once daily. Take on empty stomach Take 1 tablet by ember th daily before breakfast. take 1 tablet by ember th every day before breakfast semaglutide (OZEMPIC) 0.25 mg or 0.5 mg (2 mg/3 mL) pen (4 sources) Start: 09-10-2024 End: 12-31-2024 semaglutide (OZEMPIC) 0.25 mg or 0.5 mg (2 mg/3 mL) pen Indications: Overweight , Obesity, Class I, BMI 30-34.9 Inject 0.25 mg subcutaneously one time a week. 3 mL 1 09/10/2024 12/31/2024 Active Start: 10-10-2023 semaglutide (O ZEMPIC) 0.25 mg or 0.5 mg (2 mg/3 mL) pen Indications: Mixed obsessional thoughts and acts , Obesity, Class I, BMI 30-34.9 , Weight gain Inject 0.25 mg subcutaneously one time a week. 1 Each 1 10/10/2023 Active semaglutide, weight loss, (WEGOVY) 0.5 mg/0.5 mL pen injector (2 sources) Start: 03-08-2024 End: 04-02-2024 inject 0.5 mL by subcutaneous injection every week semaglutide, weight loss, (WEGOVY) 0.5 mg/0.5 mL pen injector Indications: Obesity, Class I, BMI 30-34.9 Inject 0.5 mL subcutaneously one time a week. 2 mL 1 03/08/2024 04/02/2024 Discontinued Start: 03-08-2024 inject 0.5 mL by sub cutaneous injection every week semaglutide, weight loss, (WEGOVY) 0.5 mg/0.5 mL pen injector Indications: Obesity, Class I, BMI 30-34.9 Inject 0.5 mL subcutaneously one time a week. 2 mL 1 03/08/2024 Active Completed/Discontinued Medications Medication Drug Class(es) Dates Sig (Normalized) Sig (Original) 12 hr buPROPion hydrochloride 150 mg extended release oral tablet (4 sources) Aminoketone Start: 08-09-2022 End: 01-11-2023 take 1 tablet by mouth twice daily buPROPion SR (WELLBUTRIN SR) 150 mg 12 hr tablet Indications: Anxiety and depression Take 1 tablet by mouth twice daily. 180 tablet 0 08/09/2022 01/11/2023 Discontinued Comment on above: [facility] cholecalciferol 1.25 mg oral capsule (9 sources) Vitamin D Start: 08-06-2019 End: 01-11-2023 take 1 capsule by mouth every week cholecalciferol, Vitamin D3, (VITAMIN D3) 1,250 mcg (50,000 unit) cap capsule Take 1 capsule by mouth one time a week. 12 capsule 0 08/06/2019 01/11/2023 Discontinued Comment on above: Take 1 capsule by mo [facility] one time a week. citalopram 20 mg oral tablet (15 sources) Serotonin Reuptake Inhibitor Start: 09-24-2018 End: 08-03-2019 take 1 tablet by mouth once daily Citalopram (Celexa) 20 mg tablet Discontinued 20 MG PO DAILY 90 September 24, 2018 12:00am August 03, 2019 11:02am Start: 03-08-2017 End: 01-16-2018 take 20 mg by mouth once daily Citalopram Discontinued 20 MG PO daily May 25, 2017 6:56am January 16, 2018 2:13pm escitalopram 5 mg oral tablet (20 sources) Serotonin Reuptake Inhibitor Start: 01-04-2022 take 1 tablet by mouth once daily escitalopram oxalate (LEXAPRO) 5 mg tablet Take 1 tablet by mouth once daily. 90 tablet 1 01/04/2022 Active Start: 08-03-2019 End: 01-30-2023 take 1 tablet by mouth once daily Escitalopram Oxalate (Lexapro) 10 mg tablet Discontinued 10 MG PO DAILY August 03, 2019 12:00am January 30, 2023 2:05pm Comment on above: TAKE 1 TABLET BY EMBER TH EVERY DAY Take 1 tablet by ember th once daily. Take 1 tablet by ember th once daily. In addition to 5 mgs to make a total of 15 mgs hydrOXYzine hydrochloride 25 mg oral tablet (10 sources) Antihistamine Start: 09-06-19 End: 05-30-19 take 25 mg by mouth three to four times daily Hydroxyzine Hcl Discontinued 25 MG PO 3 to 4 times per day 60 September 05, 2018 12:00am May 30, 2019 3:44pm Start: 09-03-2018 End: 09-05-2018 take 1 capsule by mouth three times daily Hydroxyzine Pamoate (Vistaril) 25 mg capsule Discontinued 25 MG PO THREE TIMES A DAY 60 September 03, 2018 12:00am September 05, 2018 10:50am medroxyPROGESTERone acetate 5 mg oral tablet (4 sources) Progestin Start: 01-20-2023 End: 01-30-2023 take 1 dose by mouth once daily Medroxyprogesterone Discontinued 5 MG PO .COMPLEX 45 January 20, 2023 12:00am January 30, 2023 2:22pm 5 mg orally BID for 3 days until bleeding stops, then once daily for remainder of pills naltrexone hydrochloride 50 mg oral tablet (12 sources) Opioid Antagonist Start: 08-23-2023 End: 03-08-2024 take 1 tablet by mouth once daily naltrexone 50 mg tablet Take 1 tablet by mouth once daily. 90 tablet 1 10/04/2023 03/08/2024 Discontinued (Course of therapy completed) predniSONE 20 mg oral tablet (17 sources) Start: 10-02-2023 End: 03-08-2024 predniSONE (DELTASONE) 20 mg tablet 1 tablet three times a day for 3 days, then 2 times a day for 3 days, the one daily for 3 days. 18 tablet 10/02/2023 03/08/2024 Discontinued (Course of therapy completed) Start: 10-10-2022 End: 01-11-2023 predniSONE (DELTASONE) 10 mg tablet Take 4 tablets daily for 3 days , then 3 tablets daily for 3 days, then 2 tablets daily for 3 days, then 1 tablet daily for 3 days then discontinue. 30 tablet 0 10/10/2022 01/11/2023 Discontinued Start: 05-20-2022 End: 05-25-2022 take 2 tablets by mouth once daily predniSONE (DELTASONE) 20 mg tablet Take 2 tablets by mouth once daily for 5 days. 10 tablet 0 05/20/2022 05/25/2022 Active Start: 01-06-2022 End: 05-20-2022 take 4 tablets by mouth once daily, then take 3 tablets by mouth once daily, then take 2 tablets by mouth once daily, then take 1 tablet by mouth once daily at mealtime predniSONE (DELTASONE) 10 mg tablet Take 4 pills by mouth once daily for 3 days, then 3 pills once day for 3 days, then 2 pills once daily for 3 days, then 1 pill once daily for 3 days. Take with food. 20 tablet 0 01/06/2022 05/20/2022 Discontinued (Course of therapy completed) Comment on above: Take 4 pills by mout h once daily for 3 days, then 3 pills once day for 3 days, then 2 pills once daily for 3 days, then 1 pill once daily for 3 days. Take with food. Take 2 tablets by mo [facility] once daily for 5 days. Take 4 tablets daily for 3 days , then 3 tablets daily for 3 days, then 2 tablets daily for 3 days, then 1 tablet daily for 3 days then discontinue. vitamin#30 30 mg iron-10 mg iron-folic acid 1 mg-omg3 capsule (5 sources) Start: 04-02-2018 End: 05-30-2019 take 1 capsule by mouth once daily vitamin#30 30 mg iron-10 mg iron-folic acid 1 mg-omg3 capsule Discontinued 1 CAP PO DAILY April 02, 2018 1:00am May 30, 2019 3:44pm Start: 04-02-2018 End: 05-30-2019 take 1 capsule by mouth once daily vitamin#30 30 mg iron-10 mg iron-folic acid 1 mg-omg3 capsule Discontinued 1 CAP PO DAILY April 02, 2018 12:00am May 30, 2019 2:44pm semaglutide, weight loss, (WEGOVY) 0.25 mg/0.5 mL pen injector (5 sources) Start: 10-20-2023 End: 03-08-2024 inject 0.5 mL by subcutaneous injection every week semaglutide, weight loss, (WEGOVY) 0.25 mg/0.5 mL pen injector Indications: Obesity, Class I, BMI 30-34.9 , Weight gain Inject 0.5 mL subcutaneously one time a week. 4 Each 2 10/20/2023 03/08/2024 Discontinued (Discontinued by Patient) Start: 10-20-2023 inject 0.5 mL by sub cutaneous injection every week semaglutide, weight loss, (WEGOVY) 0.25 mg/0.5 mL pen injector Indications: Obesity, Class I, BMI 30-34.9 , Weight gain Inject 0.5 mL subcutaneously one time a week. 4 Each 2 10/20/2023 Active semaglutide, weight loss, (WEGOVY) 1 mg/0.5 mL pen injector (5 sources) Start: 04-02-2024 End: 09-10-2024 inject 0.5 mL by subcutaneous injection every week semaglutide, weight loss, (WEGOVY) 1 mg/0.5 mL pen injector Indications: Obesity, Class I, BMI 30-34.9 Inject 0.5 mL subcutaneously one time a week. 2 mL 1 04/02/2024 09/10/2024 Discontinued Start: 04-02-2024 inject 0.5 mL by sub cutaneous injection every week semaglutide, weight loss, (WEGOVY) 1 mg/0.5 mL pen injector Indications: Obesity, Class I, BMI 30-34.9 Inject 0.5 mL subcutaneously one time a week. 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; Translations: [Encounter for male factor infertility in female patient] 07-14-2018 Episodic Female infertility (20 sources) Secondary female infertility; Translations: [Female infertility, unspecified] Onset: 06-25-2020 06-25-2020 Chronic Malaise and fatigue (1 source) Fatigue; Translations: [Other fatigue] 01-11-2023 Episodic Nonmalignant breast conditions (3 sources) Breast lump; Translations: [Unspecified lump in unspecified breast] Onset: 06-13-2023 06-07-2023 Episodic Other complications of ; puerperium affecting management of mother (5 sources) Advanced maternal age ; Translations: [Advanced maternal age during ] 08-24-2018 Episodic Other complications of (5 sources) Hypothyroidism in ; Translations: [Endocrine, nutritional and metabolic diseases complicating , unspecified trimester] 08-24-2018 Episodic Other complications of (5 sources) High risk ; Translations: [Supervision of resulting from assisted reproductive technology, unspecified trimester] 08-24-2018 Episodic Other congenital anomalies (2 sources) Congenital anomaly of finger; 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 Other congenital anomalies (1 source) Congenital clinodactyly; 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 Other connective tissue disease (3 sources) Pain in finger of right hand; Translations: [Pain in right finger(s)] Episodic Other connective tissue disease (2 sources) Pain in finger of left hand; Translations: [Pain in left finger(s)] Episodic Other connective tissue disease (2 sources) Pain in left foot; Translations: [Pain in left foot] Episodic Other ear and sense organ disorders (2 sources) Excessive cerumen in ear canal ; Translations: [Impacted cerumen, bilateral] 09-10-2024 Episodic Other ear and sense organ disorders (1 source) Impacted cerumen of bilateral ears; Translations: [Impacted cerumen, bilateral] 09-24-2024 Episodic Other endocrine disorders (2 sources) Androgen excess; Translations: [Androgen excess] Onset: 08-03-2017 Chronic Other female genital disorders (3 sources) Abnormal uterine bleeding; Translations: [Abnormal uterine and vaginal bleeding, unspecified] 01-30-2023 Chronic Other female genital disorders (2 sources) Abnormal uterine and vaginal bleeding, unspecified; Translations: [Unspecified disorders of menstruation and other abnormal bleeding from female genital tract] Onset: 01-31-2023 01-30-2023 Chronic Other nutritional; endocrine; and metabolic disorders (19 sources) Obese class I; Translations: [Obesity, unspecified] Onset: 10-04-2023 10-04-2023 Chronic Other nutritional; endocrine; and metabolic disorders (6 sources) Weight gain; Translations: [Abnormal weight gain] 01-11-2023 Episodic Other nutritional; endocrine; and metabolic disorders (2 sources) Overweight; Translations: [Overweight] 09-10-2024 Episodic Other and delivery including normal (5 sources) ; Translations: [Encounter for supervision of normal , unspecified, unspecified trimester] 08-24-2018 Episodic Other screening for suspected conditions (not mental disorders or infectious disease) (3 sources) Patient encounter status; Translations: [Encounter for screening mammogram for malignant neoplasm of breast] Onset: 06-09-2023 02-08-2023 Episodic Other upper respiratory infections (1 source) Acute upper respiratory infection, unspecified; Translations: [Acute upper respiratory infection] Onset: 02-03-2025 Episodic Prolapse of female genital organs (5 sources) Incomplete uterovaginal prolapse; Translations: [Incomplete uterovaginal prolapse] 08-18-2020 Chronic Residual codes; unclassified (5 sources) Family history of malignant neoplasm of breast in first degree relative; Translations: [Family history of malignant neoplasm of breast] 05-30-2019 Episodic Superficial injury; contusion (5 sources) Contusion of thigh; Translations: [Contusion of left thigh, initial encounter] 04-11-2022 Episodic Thyroid disorders (20 sources) Hypothyroidism; Translations: [Hypothyroidism, unspecified] Onset: 08-26-2019 Chronic Unclassified (1 source) Right ear pain 09-10-2024 Unclassified (1 source) Acute cough; Translations: [Acute cough] Onset: 02-03-2025 Unclassified (1 source) Obesity, Class I, BMI 30-34.9; Translations: [Obesity, Class I, BMI 30-34.9] Onset: 10-04-2023 Past or Other Problems Problem Classification Problem Date Documented Date Episodic/Chronic Allergic reactions (20 sources) Environmental allergy; Translations: [Other allergy status, other than to drugs and biological substances] Onset: 08-26-2019 08-26-2019 Episodic Immunizations and screening for infectious disease (20 sources) Group B Streptococcus carrier; Translations: [Carrier of Group B streptococcus] Onset: 06-25-2020 06-25-2020 Episodic Other ear and sense organ disorders (2 sources) Otalgia, right ear; Translations: [Otalgia, unspecified] Onset: 09-10-2024 09-10-2024 Episodic Other ear and sense organ disorders (2 sources) Impacted cerumen, bilateral; Translations: [Bilateral impacted cerumen] Onset: 09-10-2024 Episodic Other female genital disorders (5 sources) Polyp of corpus uteri; Translations: [Polyp of corpus uteri] Onset: 05-16-2016 05-16-2016 Episodic Other female genital disorders (20 sources) History of recurrent miscarriage - not ; Translations: [Recurrent loss] Onset: 05-16-2016 05-16-2016 Episodic Other female genital disorders (20 sources) Polyp of corpus uteri; Translations: [Polyp of corpus uteri] Onset: 05-16-2016 05-16-2016 Episodic Other nutritional; endocrine; and metabolic disorders (2 sources) Abnormal weight gain; Translations: [Abnormal weight gain] Onset: 02-06-2023 01-30-2023 Episodic Other nutritional; endocrine; and metabolic disorders (1 source) Overweight; Translations: [Overweight] Onset: 09-10-2024 Episodic Other skin disorders (20 sources) Eruption; Translations: [Rash and other nonspecific skin eruption] Onset: 08-26-2019 08-26-2019 Episodic Unclassified (5 sources) Spontaneous rupture of membranes; Translations: [Spontaneous rupture of amniotic membranes] 08-24-2018 Results Test Name Value Interpretation Reference Range Facility [facility] 02-03-2025 CNOV Office Visit ([facility]) ANUP DELGADO ([id number]) 1980 F Date Time Provider Department 02/03/25 5:00 PM TREVER ASHFORD During your visit today, we recorded the following information about you: Temperature Pulse Respiration Blood pressure 100.7 degrees 92/minute 18/minute 122/76 Weight 93.1 kg Trever Ashford APRN.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 02/03/2025 6:53 PM Signed [facility] Alise Anup Delgado is a 44 year old female presenting with a dry non-productive cough, chest congestion x 3 days. Patient reports she originally had a runny nose, sore throat, and cough 3 weeks ago that started to improve. She reports her cough improved until 3 days ago and last night was the worst she had multiple coughing fits to the point that she vomited x 4 episodes. Associated symptoms include fever, chills, body-aches, nasal congestion, and shortness of breathe and what she notes as labored breathing. She notes that she has not taken anything to alleviate symptoms. Review of Systems Constitutional: Positive for chills, fatigue and fever. HENT: Positive for congestion. Negative for ear discharge, ear pain, postnasal drip, rhinorrhea (reprts x 1 episode - resolved), sinus pressure, sinus pain, sore throat and trouble swallowing. Eyes: Negative for pain, discharge, redness and itching. Respiratory: Positive for cough (dry non-productive), chest tightness and shortness of breath (reports labored breathing). Negative for wheezing. Cardiovascular: Negative for chest pain. Gastrointestinal: Negative for abdominal distention, abdominal pain, nausea and vomiting. Allergic/Immunologic: Positive for environmental allergies. Neurological: Positive for headaches. Negative for dizziness and light-headedness. Objective BP 122/76 Pulse 92 Temp (!) 38.2 ?C (100.7 ?F) Resp 18 Wt 93.1 kg (205 lb 4 oz) LMP 08/14/2023 (Exact Date) SpO2 96% BMI 30.31 kg/m? Physical Exam Vitals and nursing note reviewed. Constitutional: General: She is awake. She is not in acute distress. Appearance: Normal appearance. She is not ill-appearing or toxic-appearing. HENT: Head: Normocephalic and atraumatic. Right Ear: Tympanic membrane, ear canal and external ear normal. No laceration, drainage or swelling. Tympanic membrane is not injected, scarred, perforated, erythematous, retracted or bulging. Left Ear: Tympanic membrane, ear canal and external ear normal. No laceration, drainage or swelling. Tympanic membrane is not injected, scarred, perforated, erythematous, retracted or bulging. Nose: Nose normal. No congestion or rhinorrhea. Right Nostril: No occlusion. Left Nostril: No occlusion. Right Turbinates: Not enlarged, swollen or pale. Left Turbinates: Not enlarged, swollen or pale. Right Sinus: No maxillary sinus tenderness or frontal sinus tenderness. Left Sinus: No maxillary sinus tenderness or frontal sinus tenderness. Mouth/Throat: Lips: [place]. Mouth: Mucous membranes are moist. Tongue: No lesions. Tongue does not deviate from midline. Palate: No mass and lesions. Pharynx: Oropharynx is clear. Uvula midline. Posterior oropharyngeal erythema (slightly erythemas) present. No pharyngeal swelling, oropharyngeal exudate, uvula swelling or postnasal drip. Tonsils: No tonsillar exudate or tonsillar abscesses. 1+ on the right. 1+ on the left. Eyes: Conjunctiva/sclera: Conjunctivae normal. Pupils: Pupils are equal, round, and reactive to light. Cardiovascular: Rate and Rhythm: Normal rate and regular rhythm. Heart sounds: Normal heart sounds, S1 normal and S2 normal. Pulmonary: Effort: Pulmonary effort is normal. No accessory muscle usage or respiratory distress. Breath sounds: No stridor. Examination of the right-lower field reveals decreased breath sounds. Examination of the left-lower field reveals rhonchi. Decreased breath sounds and rhonchi present. Comments: - during the examination - pt was seen having multiple coughing fits Lymphadenopathy: Head: Right side of head: No submental, submandibular, tonsillar, preauricular, posterior auricular or occipital adenopathy. Left side of head: No submental, submandibular, tonsillar, preauricular, posterior auricular or occipital adenopathy. Skin: General: Skin is warm and dry. Capillary Refill: Capillary refill takes less than 2 seconds. Neurological: Mental Status: She is alert and oriented to person, place, and time. Psychiatric: Mood and Affect: Mood normal. {ASSESSMENT/PLAN: 1. Acute cough - ICD9: 786.2, ICD10: R05.1 - XR CHEST 2V FRONTAL/LAT RESULT: Lines, tubes, and devices: None.Lungs and pleura: No consolidation. No lung mass. No pleural effusion. No pneumothorax. Cardiomediastinal silhouette: Normal cardiomediastinal silhouette. Bones and soft tissues: Unremarkable. 2. Acute upper respiratory infection - ICD9: 465.9 (more content not included)... Normal [facility] XR CHEST 2V FRONTAL/LATon XR CHEST 2V FRONTAL/LAT * * *Final Report* * * DATE OF EXAM: Feb 03 2025 5:41PM WOX [id number] - XR CHEST 2V FRONTAL/LAT / PROCEDURE REASON: Acute cough * * * * Physician Interpretation * * * * EXAMINATION: CHEST RADIOGRAPH (2 VIEW FRONTAL and LATERAL) CLINICAL HISTORY: Acute cough MQ: [id number] EXAM DATE/TIME: 02/03/2025 5:41 PM COMPARISON: No relevant prior studies available. RESULT: Lines, tubes, and devices: None. Lungs and pleura: No consolidation. No lung mass. No pleural effusion. No pneumothorax. Cardiomediastinal silhouette: Normal cardiomediastinal silhouette. Bones and soft tissues: Unremarkable. IMPRESSION: No acute radiographic abnormality. Extrusion Operator: EUGENE Transcribe Date/Time: Feb 03 2025 5:44P Dictated by : STEFANIE AMANDA MD This examination was interpreted and the report reviewed and electronically signed by: STEFANIE AMANDA MD on Feb 03 2025 5:45PM EST [id number] Normal [facility] CNOVon 09-24-2024 CNOV Office Visit (OTOLCC ) ANUP DELGADO ([id number]) 1980 F Date Time Provider Department 09/24/24 12:40 PM ROSALINDA GUTIERREZ OTCC During your visit today, we recorded the following information about you: Pulse Respiration 71/minute 17/minute Rosalinda Gutierrez APRN.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 09/24/2024 1:07 PM Signed This patient comes in for ear cleaning. Patient indicates that she has a history of wax buildup in her ears. Lately the patient has noticed blockage in the ears and would like to have them cleaned. Patient denies any other significant head and neck complaints. Physical exam revealed bilateral significant cerumen impaction. Ears were cleaned using alligator forceps and curette. Both canals the TMs are intact. Once the ears were cleaned patient felt relief of her ear blockage and return of his hearing back to normal. Patient will have followup as needed or in 1 year. Rosalinda Gutierrez APRN, 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 Referring Provider: NICO XIAO [[id number]] Allergies As of Date: 09/24/2024 (No Known Allergies) Date Reviewed: 09/24/2024 Reviewed by: Kathy Putnam LPN - Fully Assessed Reason for Visit: Ear Problem [38] Cmt: Pressure, itching and slight pain to rt ear, 3-4 months Primary Visit Diagnosis:Bilateral impacted cerumen [H61.23] Order(s):CONSULT TO ENT [9008] Order #: [id number]: 1 Prescriptions as of 09/24/2024 - semaglutide (OZEMPIC) 0.25 mg or 0.5 mg (2 mg/3 mL) pen Inject 0.25 mg subcutaneously one time a week. - FLUoxetine (PROZAC) 20 mg capsule Take 1 capsule by mouth once daily. - SYNTHROID 100 mcg tablet Take 1 tablet by mouth daily before breakfast. 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 Follow-up and Disposition History for Encounter Date Provider Department Center 09/24/2024 [id number], MARIE M [facility] Encounter Status:Closed by ROSALINDA GUTIERREZ on 09/24/24 [facility] CNOVon 09-10-2024 CNOV Office Visit (INTMWS ) ANUP DELGADO ([id number]) 1980 F Date Time Provider Department 09/10/24 11:00 AM NICO XIAO INTNormaWS During your visit today, we recorded the following information about you: Pulse Respiration Blood pressure Weight 79/minute 16/minute 120/82 87.7 kg Nico Xiao MD 09/17/2024 9:17 AM Addendum Reason for Visit Follow up HPI Anup Delgado is a 44-year-old female presenting with ear discomfort and concerns about her medical records. Anup reports intermittent discomfort in her right ear for the past few months, describing it as feeling blocked and sometimes sore. She has been using Debrox ear drops, which provide temporary relief, but the discomfort recurs. She denies any sensation of inflammation. Anup also expresses concerns about her medical records and a recent insurance issue. She reports a challenging year, including the of her mother from cancer and the intensive care of her non-verbal autistic son. During this time, she developed a habit of drinking wine in the evenings and may have gained a little weight. She consulted with an RN, who prescribed naltrexone, which she took for 1-2 weeks. She reports that the medication helped her stop drinking, and she has since returned to a healthy lifestyle, now consuming socially with her , on Saturdays. She denies any history of addiction, stating that her drinking was a habit rather than an addiction. In February, she had an online appointment to renew her thyroid medication and check her cholesterol, which had been elevated. She received a bill for $600, which was not covered by insurance due to diagnoses of obesity and excessive alcohol consumption. She found this upsetting and inaccurate, as she was trying to maintain a healthy lifestyle. She reports that her cholesterol had increased for the first time, and she wanted to monitor it due to a family history of hypercholesterolemia. Anup was also prescribed a GLP-1 medication for weight loss, which she took at a low dose for a couple of months. She reports losing weight through lifestyle changes and is now 193 lbs, down from 207 lbs. Her usual weight is around 155-160 lbs. She stopped taking the medication due to the cost and confusion with her insurance. She has a history of anxiety and OCD, which she reports is well-controlled with Prozac. She denies any current issues with anxiety or depression. Social History Tobacco Use Smoking status: Never Smokeless tobacco: Never Vaping Use Vaping status: Never Used Substance Use Topics Alcohol use: Yes Comment: Occasionally Drug use: No Past medical history, appointments, medications, allergies reviewed. Pertinent Lab/Diagnostic Studies are reviewed and discussed today Current Outpatient Medications: FLUoxetine (PROZAC) 20 mg capsule SYNTHROID 100 mcg tablet semaglutide (OZEMPIC) 0.25 mg or 0.5 mg (2 mg/3 mL) [facility] Health Maintenance Mammogram Screening Cervical Cancer Screening Hepatitis B Vaccine(2 of 2 - CpG 2-dose series)@ Review Of Systems Constitutional: (+) weight gain Ears/Nose/Mouth/Throat : (+) ear fullness, (+) ear discomfort, (+) intermittent ear pain Physical Exam BP 120/82 Pulse 79 Resp 16 Wt 87.7 kg (193 lb 6.4 oz) LMP 08/14/2023 (Exact Date) SpO2 98% BMI 28.56 kg/m? GENERAL: NAD, alert and oriented. SKIN: Unremarkable, no rash or skin lesions. HEAD: Normocephalic. EYES: PERRLA, EOMI, conjunctiva clear. EARS: External ears normal. Both ear canals completely filled with cerumen, obscuring view of the tympanic membranes. LUNGS: Clear to auscultation bilaterally, no wheezes/rhonchi/rales. HEART: Regular rate and rhythm, no murmurs. No ectopy. EXTREMITIES: Normal, no deformities, no skin discoloration, no edema. NEURO: Awake, alert and oriented x3, cranial nerves II-XII grossly intact, normal gait, no involuntary motions. Labs: (February) Lipid panel: Cholesterol not significantly elevated. Lipid panel: Previously noted elevated cholesterol. Assessment and Plan 1. Right ear pain (H92.01) Excessive cerumen in both ear canals (H61.23) Both ear canals are completely occluded with cerumen, obstructing visualization of the tympanic membranes. Cerumen appears soft and non-impacted. - Referred to ENT for cerumen removal. 2. Overweight (E66.3) Obesity, Class I, BMI 30-34.9 (E66.811) Current weight is 193 lbs, down from 207 lbs. Patient has been making lifestyle changes, including increased exercise. Previously on a low dose of semaglutide from a compounding pharmacy, which was discontinued due to insurance and billing issues. - Discussed benefits of GLP-1 agonists for weight management. - Prescribed Ozempic 0.5 mg from a compounding pharmacy in [place], [place], with added vitamin B12. - [facility] (more content not included)... Normal [facility] Lipid 1996 panelon 4 Cholesterol [Mass/Vol] 208 mg/dL High <200 [facility] Comment on above: Order Comment: Speci men Type: BLOOD SPECIMEN Ordering Facility: [facility] Address: [address] [place] [address] Result Comment: <200 mg/dL, Desirable 200-239 mg/dL, Borderline high >239 mg/dL, High Performed By: #### 3 016-3, 80241-3 #### [facility] CLIA [id number] [address] [place], [place] [address] [address] [place] Cholesterol in HDL [Mass/Vol] 42 mg/dL Normal >39 [facility] Comment on above: Order Comment: Nirmala patel Type: BLOOD SPECIMEN Ordering Facility: [facility] Address: [address] [place] [address] Result Comment: 40-5 9 mg/dL, Acceptable >59 mg/dL, High: Negative risk factor for coronary heart disease <40 mg/dL, Low: Positive risk factor for coronary heart disease Performed By: #### 3 016-3, 78517-0 #### [facility] CLIA [id number] [address] [place] [address] STATES OF [facility] Cholesterol in LDL [Mass/Vol] 140 mg/dL High <100 [facility] Comment on above: Order Comment: Nirmala jorge Type: BLOOD SPECIMEN Ordering Facility: [facility] Address: [address] [place] [address] Result Comment: <100 mg/dL, Optimal 100-129 mg/dL, Near optimal/above optimal 130-159 mg/dL, Borderline high 160-189 mg/dL, High >189 mg/dL, Very high Secondary prevention optimal LDL Cholesterol levels are recommended to be < 70 mg/dL Performed By: #### 3 016-3, 01721-1 #### [facility] CLIA [id number] [address] [place] [address] [place] Cholesterol in LDL/Cholesterol in HDL [Mass ratio] 3.33 {ratio} High <2.54 [facility] Comment on above: Order Comment: Nirmala jorge Type: BLOOD SPECIMEN Ordering Facility: [facility] Address: [address] [place] [address] Result Comment: Vandana price: 1. National Cholesterol Education Program ATP III Guideline At-A-Glance Quick Desk Reference: National Heart, Lung, and Blood [place]. National Institutes of Health. 2001: NIH Publication No. 01-3305. 2. An International Atherosclerosis Society position paper: global recommendations for the management of dyslipidemia: executive summary, Atherosclerosis. 2014: 232(2):410-413. Performed By: #### 3 016-3, 66509-1 #### [facility] CLIA [id number] [address] [place], [place] [id number] [place] Cholesterol in VLDL [Mass/Vol] 26 mg/dL Normal <30 [facility] Comment on above: Order Comment: Speci men Type: BLOOD SPECIMEN Ordering Facility: [facility] Address: [address] [place] [address] Performed By: #### 3 016-3, 32701-0 #### [facility] CLIA [id number] [address] [place] [address] [place] Cholesterol non HDL [Mass/Vol] 166 mg/dL High <130 [facility] Comment on above: Order Comment: Speci men Type: BLOOD SPECIMEN Ordering Facility: [facility] Address: [address] [place] [address] Result Comment: <130 mg/dL, Optimal 130-159 mg/dL, Near optimal/above optimal 160-189 mg/dL, Borderline high 190-219 mg/dL, High >219 mg/dL, Very high Secondary prevention optimal non HDL Cholesterol levels are recommended to be <100 mg/dL Performed By: #### 3 016-3, 64837-0 #### [facility] CLIA [id number] [address] [place] [address] [place] Cholesterol.total/Chol esterol in HDL [Mass ratio] 4.95 {ratio} Normal <5.10 [facility] Comment on above: Order Comment: Speci men Type: BLOOD SPECIMEN Ordering Facility: [facility] Address: [address] [place] [address] Performed By: #### 3 016-3, 66797-8 #### [facility] CLIA [id number] [address] [place] [address] [place] FASTING TIME 12 hrs Normal [facility] Comment on above: Order Comment: Speci men Type: BLOOD SPECIMEN Ordering Facility: [facility] Address: [address] [place] [address] Performed By: #### 3 016-3, 13035-6 #### [facility] CLIA [id number] [address] [place] [address] [place] Triglyceride [Mass/Vol] 132 mg/dL Normal <150 [facility] Comment on above: Order Comment: Speci men Type: BLOOD SPECIMEN Ordering Facility: [facility] Address: [address] [place] [address] Result Comment: <150 mg/dL, Normal 150-199 mg/dL, Borderline high 200-499 mg/dL, High >499 mg/dL, Very high Performed By: #### 3 016-3, 64479-3 #### [facility] CLIA [id number] [address] [place] [address] [place] TSH SerPl-aCncon 03-12-2024 TSH Qn 1.640 m[IU]/L Normal 0.270-4.200 [facility] Comment on above: Order Comment: Speci men Type: BLOOD SPECIMEN Ordering Facility: [facility] Address: [address] [place] [address] Result Comment: If t he patient is , TSH reference range varies by gestational period: First Trimester (weeks 9-12): 0.180-2.990 mIU/L Second Trimester: 0.110-3.980 mIU/L Third Trimester: 0.480-4.710 mIU/L Pedro Pablo Hernández et al. A Practical Approach for the Verifications and Determination of Site- and Trimester-Specific Reference Intervals for Thyroid Function tests in . Thyroid, 2019:29:3:412-420. Ceferino Sotelo, et al. 2017 Guidelines of the [place] Thyroid Association for the Diagnosis and Management of Thyroid Disease during and the . Thyroid, 2017:27:3:315-389. Performed By: #### 3 016-3, 77824-3 #### [facility] CLIA [id number] [address] [place] [address] [place] Breast Limited Unilateralon 06-08-2023 Breast Limited Unilateral [facility] Imaging Services [address] [place] [address] Breast Limited Unilateral MR#: [id number] Acct: [id number] Name: ANUP TEJADA LUPE Rep #: [id number] : 1980 F 43 From: Lev bansal MD PCP: Dr. Nico Xiao MD Status: REG CLI Study: Breast Limited Unilateral Date of Exam: Exam# [id number] Ordering Dr: Isa Campos [id number] STUDY: ULTRASOUND BREAST - RIGHT REASON FOR EXAM: Female, 43 years old. Abnormal screening mammogram. TECHNIQUE: Axial and longitudinal images of the RIGHT breast were performed with a high resolution ultrasound transducer. # OF IMAGES: [id number] COMPARISON: Comparison is made with prior mammogram dated June 06, 2023 and prior sonogram of the right breast dated June 04, 2019. FINDINGS: RIGHT Breast: The central and inferior lateral aspect of the right breast was examined with ultrasound. There is a 1.7 cm x 1.4 cm x 0.5 cm benign containing lymph node. US/Breast Limited Unilateral IMPRESSION: 1.7 cm x 1.4 cm x 0.5 cm benign-appearing lymph node at the 7:00 position breast at 5 cm from the nipple. ASSESSMENT CATEGORY: BIRADS Category 2: Benign. A letter regarding these results will be sent to the patient by the facility within 30 days. Electronically Signed: Lev Johnson MD at 9:55 EDT , CC: Dr. Nico Xiao MD; Dr. Isa Campos MD Extrusion Operator: Signed Normal [facility] SCRN MAMM (CAD)W/NANCY BILATo n 06-06-2023 SCRN MAMM (CAD)W/NANCY BILAT [facility] Imaging Services [address] [place] [address] SCRN MAMM (CAD)W/NANCY BILAT MR#: [id number] Acct: [id number] Name: ANUP TEJADA Rep #: [id number] : 1980 F 43 From: Lev bansal MD PCP: Dr. Nico Xiao MD Status: REG CL Study: SCRN MAMM (CAD)W/NANCY BILAT Date of Exam: 05/25 05/20 Exam# [id number] Ordering Dr: Isa Campos [id number] MAMMOGRAPHY - BILATERAL SCREENING REASON FOR EXAM: Female, 43 years old. Routine annual screening examination. PERTINENT HISTORY: Mother with breast cancer. Aunt with breast cancer. TECHNIQUE: Digital bilateral breast nancy (3D mammographic acquisition) in the CC and MLO projections. 2-D mediolateral oblique (MLO) and craniocaudad (CC) views of both breasts were obtained. CAD: Full Field Digital Mammography with Computer Added Detection was performed. COMPARISON: Comparison is made with prior study June 04, 2019. FINDINGS: Breast Composition: The breasts are almost entirely fatty. There is a 4.5 mm x 9.3 mm well-defined nodule in the central lateral aspect of the right breast. Correlation with ultrasound is recommended. No other significant abnormalities are identified. BI/SCRN MAMM (CAD)W/NANCY BILAT IMPRESSION: 4.5 mm by 0.3 mm well-defined nodule in the central lateral aspect of the right breast. Correlation with ultrasound is recommended. ASSESSMENT CATEGORY: BIRADS Category 0: Incomplete. Need additional imaging evaluation. A letter regarding these results will be sent to the patient by the facility within 30 days. Approximately 10% of breast cancers are not detected by mammography. A normal mammogram should not delay biopsy of a clinically suspicious abnormality. [id number] Electronically Signed: Lev Johnson MD at 15:43 EDT Reading Location ID and State: [facility] / [place] , Service support , CC: Dr. Nico Xiao MD; Dr. Isa Campos MD Extrusion Operator: Signed Normal [facility] [employer] Office Visit Reporton 05-15-2023 [employer] Office Visit Report [facility] [place] [address] [place] [address] OFFICE VISIT Date of Service: 05/15/23 MR#: [id number] Acct: [id number] Name: ANUP TEJADA Rep #: [id number] : 1980 Provider: Dr. Isa josé MD Age/Sex: 43/F Location: [facility] Status: Signed Intake Vital Signs 04/11/22 18:09 01/30/23 13:06 05/15/23 13:04 05/15/23 13:06 Height 5 ft 9 in 5 ft 9 in 5 ft 9 in 5 ft 9 in Weight: 208 lb BMI 30.7 BP 110/80 Intake Visit Reasons: Annual ([employer]) Staff Auditor Required: No Is patient in pain?: No Allergies No Known Allergies Allergy (Verified 05/15/23 13:04) Medications fluoxetine 40 mg capsule 40 mg PO DAILY 01/30/23 [History Confirmed 05/15/23] levothyroxine 88 mcg tablet 100 mcg PO DAILY 05/15/23 [History] Is last menstrual period known: Yes Last Menstrual Period: 05/05/23 Post menopausal: No Patient : No : No [facility] Medical History Anxiety disorder Bartholin's cyst Secondary female infertility Surgical History H/O vascular surgery History of appendectomy Status post hysteroscopic polypectomy Family History Mother Breast cancer Social History Smoking Status: Never smoker details: social substance use type: does not use what type of physical activity do you participate in: walking and running frequency: 3-4 times per week duration: 30-45 minutes/day seatbelt use: always do you feel safe at home: Yes additional social history: Moo- works at [employer] History 4 Elective abortions Hx Para 2 Spontaneous abortions Hx # Term Pregnancies Ectopic pregnancies Hx # Pregnancies Multiple births # of living children 2 Past Pregnancies Del. Date Name GA/Weeks Outcome Route Bth Weight Gen Labor Lgth Anesthesia Del Locatn Provider FOB 04/16/12 Adhan 8 lbs 3 oz Male 24 07/13/18 Conall 39 live - full term Male epidural [facility] Delivery Date: 07/13/18 Last Updated by: Cassie ROBLERO, Small placenta, infertility HPI Encounter for routine gynecological examination Details: ANUP DELGADO is a 43 year old who presents for annual exam. Last PAP: 2019 History of abnormal PAP: Last mammogram: 2019 History of abnormal mammogram: Colon cancer screening: Other preventative health care screenings: Ganta - did annual labs with the last year Female Reproductive History Last Menstrual Period: 05/05/23 Cycle Length: 21-35 Bleeding Duration: 5 Questions: metorrhagia: No, sexually active: Yes, dyspareunia: No and PCB: No Menopausal Symptoms: No hot flashes, No night sweats, No weight change, No mood changes, No difficulty concentrating, No sleep problems and No change in libido ROS Const Constitutional: Reports as per HPI, fatigue and weight gain; Denies increased appetite, poor appetite, night sweats or weight loss Cardio Card: Denies chest pain Resp Resp: Denies cough or dyspnea GI GI: Reports as per HPI; Denies abdominal pain, bloating, constipation, nausea or vomiting : Reports as per HPI and other; Denies difficulty voiding, dysuria, hematuria, hot flashes, nipple discharge, pelvic pain, prolapse symptoms, urinary frequency, urinary incontinence, urinary urgency, vaginal discharge, vaginal dryness, vaginal odor or vaginal pruritus Skin Skin/Breast: Denies changing lesions, breast mass, breast pain, breast skin changes or nipple discharge Psych Psych: Denies anxiety, change in libido, depression or difficulty concentrating Exam Const General: cooperative, healthy appearing, comfortable, no acute distress, well developed and well groomed HENMT Head: normal to inspection and normocephalic Ears: hearing grossly normal bilaterally and external ears normal Nose: external nose normal Face and sinus: normal facial exam Neck Neck: normal visual inspection, full ROM and no lymphadenopathy Thyroid: thyroid normal Chest Chest palpation inspection: normal inspection of the chest Breast inspection: normal inspection of the breasts and normal inspection of the axillae Breast palpation: normal palpation of the breasts, normal palpation of the axillae and no axillary lymphadenopathy Resp Effort Inspection: normal respiratory effort GI Inspection: normal to inspection and non-distended Palpation: soft, no hepatosplenomegaly and no guarding General: bladder normal to palpation External Female Exam: normal external appearance, normal appearance of the urethra and no lesions Urethra: normal appearance of the urethra and normal palp (more content not included)... Normal [facility] Glucoseon 02-01-2023 Glucose [Mass/Vol] 90 mg/dL Normal 74-106 [facility] Comment on above: Performed By: #### L [id number], L501.0100, L501.9985 #### [facility] [address] [place], [place], [id number] Hemoglobin A1con 02-01-2023 HbA1c (Bld) [Mass fraction] 4.9 % Normal 3.8-5.6 [facility] Comment on above: Result Comment: Norm al < 5.7 % Prediabetic 5.7 - 6.4 % Diabetic >or= 6.5 % Please note range changes. Performed By: #### L [id number], L501.0100, L501.9985 #### [facility] [address] [place], [place], [address] Insulinon 02-01-2023 Insulin 7.0 mU/L Normal 2.6-37.6 [facility] Comment on above: Performed By: #### L [id number], L501.0100, L501.9985 #### [facility] [address] [place], [address] [employer] Office Visit Reporton 01-30-2023 [employer] Office Visit Report [facility] [place] [facility] [address] [place] [address] OFFICE VISIT Date of Service: 01/30/23 MR#: [id number] Acct: [id number] Name: ANUP TEJADA Rep #: [id number] : 1980 Provider: Dr. Isa josé MD Age/Sex: 42/F Location: [facility] Status: Signed Intake Vital Signs 04/11/22 18:09 01/30/23 13:04 01/30/23 13:06 Height 5 ft 9 in 5 ft 9 in 5 ft 9 in Weight: 206 lb 4 oz BMI 30.4 BP 109/73 Intake Visit Reasons: AUB Staff Auditor Required: No Is patient in pain?: No Allergies No Known Allergies Allergy (Verified 01/30/23 13:05) Medications levothyroxine 88 mcg tablet 88 mcg PO DAILY #30 tabs 07/15/18 [Rx Confirmed 01/30/23] fluoxetine 40 mg capsule 40 mg PO DAILY 01/30/23 [History Confirmed 01/30/23] Is last menstrual period known: Yes Post menopausal: No Patient : No : No [facility] Medical History Anxiety disorder Bartholin's cyst Secondary female infertility Surgical History H/O vascular surgery History of appendectomy Status post hysteroscopic polypectomy Family History Mother Breast cancer Social History Smoking Status: Never smoker details: social substance use type: does not use what type of physical activity do you participate in: walking and running frequency: 3-4 times per week duration: 30-45 minutes/day seatbelt use: always do you feel safe at home: Yes additional social history: Moo- works at [employer] [facility] AUB Details: ANUP DELGADO is a 42 year old who presents for AUB. she has regular menses, and then in the last month she was bleeding for 2 weeks straight heavy with clots at times. she had her thyroid adjusted a few moths ago but is normal now. bleeding stopped on the third day of the progesterone and she is finishing the course now. she is feeling better. she has also had a 50 lb weight gain in the last 2 years. History 4 Elective abortions Hx Para 2 Spontaneous abortions Hx # Term Pregnancies Ectopic pregnancies Hx # Pregnancies Multiple births # of living children 2 Past Pregnancies Del. Date Name GA/Weeks Outcome Route Bth Weight Infant Gen Labor Lgth Anesthesia Del Locatn Provider FOB 04/16/12 Adhan 8 lbs 3 oz Male 24 07/13/18 Conall 39 live - full term Male epidural [facility] Delivery Date: 07/13/18 Last Updated by: Cassie ROBLERO, Small placenta, infertility ROS Const Constitutional: Denies fatigue, fever(s), headache(s), increased appetite, poor appetite, weight gain or weight loss GI GI: Reports as per HPI; Denies abdominal pain, constipation, nausea or vomiting : Reports as per HPI; Denies difficulty voiding, dysuria, hematuria, pelvic pain, urinary frequency, urinary incontinence, urinary hesitancy, urinary urgency, vaginal discharge, vaginal dryness, vaginal odor, vaginal pruritus or other Exam Const General: cooperative, healthy appearing, comfortable, no acute distress and well developed Orientation: alert [place] Head: normal to inspection and normocephalic Ears: hearing grossly normal bilaterally and external ears normal Nose: external nose normal and nares normal Face and sinus: normal facial exam Neck Neck: normal visual inspection, no lymphadenopathy and trachea midline Thyroid: thyroid normal Resp Effort Inspection: normal respiratory effort Musc Other: gross motor intact no deficits, full bilateral strength Skin General: no rashes or lesions noted Neuro Motor: muscle tone normal throughout Coding Level of Care Code Off vis,est,level 4 Diagnoses Weight gain R63.5 Abnormal uterine bleeding N93.9 Assessment and Plan Assessment and Plan (1) Weight gain: Status: Acute Comment: thyroid reviewed. additional labs ordered (2) Abnormal uterine bleeding: Status: Acute Comment: progesterone ordered for acute manageemt reveiwed options both medical and exp management. nl labs and US reveiwed Orders: Orders Insulin Today R63.5 - Abnormal weight gain Glucose Today R63.5 - Abnormal weight gain Hemoglobin A1c Today R63.5 - Abnormal weight gain Medications: Discontinued medroxyprogesterone Discontinued Reason: Order Changed 5 mg orally BID for 3 days until bleeding stops, then once daily for remainder of pills 30 days 45 tabs 1RF Plan Problem list updated and treatment plans were reviewed with the patient and relevant educational handouts given. See problem list details for specific plan information. 01/30/23 1552 Date _ (more content not included)... Normal [facility] Pelvic w/ Transvaginalon Pelvic w/ Transvaginal [facility] Imaging Services [address] [place] [id number] Pelvic w/ Transvaginal MR#: [id number] Acct: [id number] Name: ANUP TEJADA LUPE Rep #: [id number] : 1980 F 42 From: Darin jimenez MD PCP: Dr. Nico Xiao MD Status: REG CLI Study: Pelvic w/ Transvaginal Date of Exam: 01/26/23 Exam# [id number] Ordering Dr: Isa Campos [id number] INDICATION: AUB EXAMINATION: US Pelvis Non OB Complete With Transvaginal Imaging TECHNIQUE: Transabdominal and transvaginal pelvic ultrasound was performed. Grayscale, spectral waveform, and color flow Doppler evaluation of the adnexa. COMPARISON: None. FINDINGS: UTERUS: Retroverted. The uterus measures 10 x 6.3 x 5 cm. There is a solitary 6 mm fibroid in the posterior uterine wall. The endometrial stripe measures 5 mm in AP diameter which is within normal limits. RIGHT OVARY: Measures 3.1 x 2.1 x 1.5 cm. Non-enlarged, normal echogenicity. There is normal arterial inflow and venous outflow present in the right ovary. LEFT OVARY: Measures 4.2 x 3 x 2.5 cm. Non-enlarged, normal echogenicity. There is normal arterial inflow and venous outflow present in the left ovary. 2.3 cm dominant follicle. FREE FLUID: Trace. US/Pelvic w/ Transvaginal IMPRESSION: 6 mm fibroid in the posterior uterine body. Otherwise normal bilateral ovaries and uterus. Electronically Signed: Darin Mehta MD at 19:05 EDT , CC: Dr. Nico Xiao MD; Dr. Isa Campos MD Extrusion Operator: Signed Normal [facility] Absolute lymphocyte countOrd ered By: Isa Campos on 01-25-2023 Lymphocytes Auto (Unsp spec) [#/Vol] 1.84 10*3/uL 0.83-4.51 [facility] Basophil percentageOrdered B y: Isa Campos on 01-25-2023 Basophils/100 WBC (Bld) 0.8 % 0-1 [facility] Eosinophils/100 WBC (Bld) 1.2 % 0-5 [facility] Neutrophils (Bld) [#/Vol] 4.0 10*3/uL 2.0-7.7 [facility] Neutrophils/100 WBC (Bld) 61.5 % 47-70 [facility] WBC (Bld) [#/Vol] 6.5 10*3/uL 4.4-11.0 [facility] Blood erythrocytes count (nu mber/volume)Ordered By: Isa Campos on 01-25-2023 RBC (Bld) [#/Vol] 4.70 10*6/uL 4.2-5.4 [facility] Blood hemoglobin measurement (mass/volume)Ordered By: Isa Campos on 01-25-2023 Hemoglobin (Bld) [Mass/Vol] 13.9 g/dL 12.0-15.0 [facility] Blood lymphocytes/100 leukoc ytesOrdered By: Isa Beth on 01-25-2023 Lymphocytes/100 WBC (Bld) 28.2 % 19-41 [facility] Blood monocytes/100 leukocyt esOrdered By: Isa Campos on 01-25-2023 Monocytes/100 WBC (Bld) 8.0 % 0-10 [facility] Blood platelet mean volumeOr dered By: Isa Campos on 01-25-2023 Platelet mean volume (Bld) [Entitic vol] 8.6 fL 6.2-12.0 [facility] CBC W/Diff, Automatedon 11-0 -2022 Absolute Lymph 1.84 X10 3/uL Normal 0.83-4.51 [facility] Comment on above: Performed By: #### L 100.0100, L501.9520 #### [facility] [address] [place], [address] Absolute Neut 4.0 X10 3/uL Normal 2.0-7.7 [facility] Comment on above: Performed By: #### L 100.0100, L501.9520 #### [facility] [address] [place], [address] Basophils/100 WBC (Bld) 0.8 % Normal 0-1 [facility] Comment on above: Performed By: #### L 100.0100, L501.9520 #### [facility] [address] [place], [address] Eosinophils/100 WBC (Bld) 1.2 % Normal 0-5 [facility] Comment on above: Performed By: #### L 100.0100, L501.9520 #### [facility] [address] [place], [address] Erythrocyte distribution width (RBC) [Ratio] 12.3 % Normal 11.6-14.6 [facility] Comment on above: Performed By: #### L 100.0100, L501.9520 #### [facility] [address] [place], [address] Hematocrit (Bld) [Volume fraction] 41.6 % Normal 37-47 [facility] Comment on above: Performed By: #### L 100.0100, L501.9520 #### [facility] [address] [place], [address] Hemoglobin (Bld) [Mass/Vol] 13.9 g/dL Normal 12.0-15.0 [facility] Comment on above: Performed By: #### L 100.0100, L501.9520 #### [facility] [address] [place], [address] IG% 0.300 Normal 0.0-0.9 [facility] Comment on above: Result Comment: IG% - Immature Granulocytes (promyelocytes, myelocytes and metamyelocytes) > 1% indicates that a LEFT SHIFT is Present. Performed By: #### L 100.0100, L5.9520 #### [facility] [address] [place], [address] Lymphocytes/100 WBC (Bld) 28.2 % Normal 19-41 [facility] Comment on above: Performed By: #### L 100.0100, L501.9520 #### [facility] [address] [place], [address] MCH (RBC) [Entitic mass] 29.6 pg Normal 27.0-32.0 [facility] Comment on above: Performed By: #### L 100.0100, L501.9520 #### [facility] [address] [place], [address] MCHC (RBC) [Mass/Vol] 33.4 g/dL Normal 32-36 [facility] Comment on above: Performed By: #### L 100.0100, L501.9520 #### [facility] [address] [place] [facility] [place], [address] MCV (RBC) [Entitic vol] 88.5 fL Normal 81-99 [facility] Comment on above: Performed By: #### L 100.0100, L501.9520 #### [facility] [address] [place], [address] Monocytes/100 WBC (Bld) 8.0 % Normal 0-10 [facility] Comment on above: Performed By: #### L 100.0100, L501.9520 #### [facility] [address] [place], [address] Neutrophils/100 WBC (Bld) 61.5 % Normal 47-70 [facility] Comment on above: Performed By: #### L 100.0100, L501.9520 #### [facility] [address] [place], [address] Nucleated RBC (Bld) [#/Vol] 0 10*3/uL Normal 0-5 [facility] Comment on above: Performed By: #### L 100.0100, L501.9520 #### [facility] [address] [place], [address] Platelet mean volume (Bld) [Entitic vol] 8.6 fL Normal 6.2-12.0 [facility] Comment on above: Performed By: #### L 100.0100, L501.9520 #### [facility] [address] [place], [address] Platelets (Bld) [#/Vol] 359 10*3/uL Normal 150-450 [facility] Comment on above: Performed By: #### L 100.0100, L501.9520 #### [facility] [address] [place], [address] RBC (Bld) [#/Vol] 4.70 10*6/uL Normal 4.2-5.4 [facility] Comment on above: Performed By: #### L 100.0100, L501.9520 #### [facility] [address] [place], [address] RDW SD 40.1 fl Normal 35.1-43.9 [facility] Comment on above: Performed By: #### L 100.0100, L501.9520 #### [facility] [address] [place], [address] WBC (Bld) [#/Vol] 6.5 10*3/uL Normal 4.4-11.0 [facility] Comment on above: Performed By: #### L 100.0100, L501.9520 #### [facility] [address] [place], [address] Determination of erythrocyte mean corpuscular volume (MCV)Ordered By: Isa Campos on 01-25-2023 MCV (RBC) [Entitic vol] 88.5 fL 81-99 [facility] Hematocrit Auto (Bld) [Volum e fraction]Ordered By: Isa Campos on 01-25-2023 Hematocrit (Bld) [Volume fraction] 41.6 % 37-47 [facility] - Hematology and Cell countsOrdered By: Isa Campos on 01-25-2023 Erythrocyte distribution width (RBC) [Entitic vol] 40.1 fL 35.1-43.9 [facility] Erythrocyte distribution width (RBC) [Ratio] 12.3 % 11.6-14.6 [facility] Immature granulocytes/100 WBC (Bld) 0.300 % 0.0-0.9 [facility] Comment on above: IG% - Immature Granu locytes (promyelocytes, myelocytes and metamyelocytes) > 1% indicates that a LEFT SHIFT is Present. MCH (RBC) [Entitic mass] 29.6 pg 27.0-32.0 [facility] Nucleated RBC/100 WBC (Bld) [Ratio] 0 % 0-5 [facility] MCHC Auto (RBC) [Mass/Vol]Or dered By: Isa Campos on 01-25-2023 MCHC (RBC) [Mass/Vol] 33.4 g/dL 32-36 [facility] No Panel InformationOrdered By: Isa Campos on 01-25-2023 Thyroid Stimulating Hormone (TSH) 1.60 uIU/mL 0.358-3.74 [facility] Platelets bldOrdered By: Ramez Campos on 01-25-2023 Platelets (Bld) [#/Vol] 359 10*3/uL 150-450 [facility] Thyroid Stim Hormone (TSH)on 01-25-2023 TSH 1.60 uIU/mL Normal 0.358-3.74 [facility] Comment on above: Performed By: #### L 100.0100, L501.9520 #### [facility] [address] [place], [address] XR FOOT GENERAL 3V AP/LAT/OB L LEFTon 05-20-2022 [facility] XR Foot - left AP and Latera l and obliqueon 05-20-2022 IMPRESSION: No acute radiographic abnormalities identified in the left foot. Extrusion Operator: PSCB Transcribe Date/Time: May 20 2022 9:41A Dictated by : EMY MCBRIDE MD This examination was interpreted and the report reviewed and electronically signed by: EMY MCBRIDE MD on May 20 2022 9:45AM [facility] DIVISION OF RADIOLOGY * * *Final Report* * * DATE OF EXAM: May 20 2022 9:39AM WOX 5336 - XR FOOT 3V AP/LAT/OBL LT / PROCEDURE REASON: Foot pain, left * * * * Physician Interpretation * * * * EXAM TITLE: XR FOOT 3V AP/LAT/OBL LT EXAM DATE/TIME: 05/20/2022 9:39 AM COMPARISON: None CLINICAL INDICATION/HISTORY: Trauma. TECHNIQUE: AP, lateral and oblique views of the left foot are presented. FINDINGS: No acute fractures or subluxations are noted. Multiple accessory bones seen in the midfoot. The joint spaces are well preserved. The mineralization of the bones is normal. There is no significant soft tissue swelling. DIVISION OF RADIOLOGY Provider, Kelly Valerio - 05/20/2022 * * *Final Report* * * DATE OF EXAM: May 20 2022 9:39AM WOX 5336 - XR FOOT 3V AP/LAT/OBL LT / PROCEDURE REASON: Foot pain, left * * * * Physician Interpretation * * * * EXAM TITLE: XR FOOT 3V AP/LAT/OBL LT EXAM DATE/TIME: 05/20/2022 9:39 AM COMPARISON: None CLINICAL INDICATION/HISTORY: Trauma. TECHNIQUE: AP, lateral and oblique views of the left foot are presented. FINDINGS: No acute fractures or subluxations are noted. Multiple accessory bones seen in the midfoot. The joint spaces are well preserved. The mineralization of the bones is normal. There is no significant soft tissue swelling. IMPRESSION IMPRESSION: No acute radiographic abnormalities identified in the left foot. Extrusion Operator: EUGENE Transcribe Date/Time: May 20 2022 9:41A Dictated by : EMY MCBRIDE MD This examination was interpreted and the report reviewed and electronically signed by: EMY MCBRIDE MD on May 20 2022 9:45AM EST [facility] Radiology Study observation (narrative) [facility] XR Foot - left AP and Latera l and obliqueOrdered By: [facility] Provider on 05-20-2022 [facility] No Panel Informationon 01-[address] [facility] [address] Abdomen w/o Contraston CT Abdomen w/o Contrast Patient Name: ALEXSANDRA DELGADO CT Exam Date/Time 08/03/2017 09:33:[address] Abdomen w/o Contrast (No PO, No IV) Ordering Physician ANA NUNEZ Accession Number [id number] CPT4 Codes 61617 (CT Abdomen w/o Contrast (No PO, No [...] statistically most likely represent cysts. The more ill-defined area in the right hepatic lobe could [...] DIANE Transcribed Date and Time: 08/04/2017 8:56 Normal [facility] Vital Signs Date Time Vital Sign Value Performing Clinician Facility 09-24-2024 12:43-0400 Heart rate 71 /min Rosalinda Gutierrez APRN.CNP Work Phone: [facility] 09-24-2024 12:43-0400 Respiratory rate 17 /min Rosalinda Gutierrez APRN.CNP Work Phone: [facility] 09-24-2024 12:43-0400 SaO2% (BldA) [Mass fraction] 98 % Rosalinda Gutierrez APRN.CNP Work Phone: [facility] 09-10-2024 11:08-0400 Body mass index (BMI) [Ratio] 28.56 kg/m2 Nico Xiao MD Work Phone: [facility] 09-10-2024 11:08-0400 Body weight 87.73 kg Nico Xiao MD Work Phone: [facility] 09-10-2024 11:08-0400 Diastolic blood pressure 82 mm[Hg] Nico Xiao MD Work Phone: [facility] 09-10-2024 11:08-0400 Heart rate 79 /min Nico Xiao MD Work Phone: [facility] 09-10-2024 11:08-0400 Respiratory rate 16 /min Nico Xiao MD Work Phone: [facility] 09-10-2024 11:08-0400 SaO2% (BldA) [Mass fraction] 98 % Nico Xiao MD Work Phone: [facility] 09-10-2024 11:08-0400 Systolic blood pressure 120 mm[Hg] Nico Xiao MD Work Phone: [facility] 08-23-2023 11:36-0400 Body mass index (BMI) [Ratio] 30.57 kg/m2 Barby Val [employer] CAPTAIN.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 Work Phone: [facility] 08-23-2023 11:36-0400 Body weight 93.89 kg Barby Val [employer]RIMP TRA[employer]ER CAPTAIN.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 Work Phone: [facility] 08-23-2023 11:36-0400 Diastolic blood pressure 84 mm[Hg] Barby Val [employer]RIMP TRA[employer]ER CAPTAIN.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 Work Phone: [facility] 08-23-2023 11:36-0400 Heart rate 84 /min Barby Val [employer]RIMP TRAWLER CAPTAIN.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 Work Phone: [facility] 08-23-2023 11:36-0400 SaO2% (BldA) [Mass fraction] 98 % Barby Val [employer]RIMP TRAWLER CAPTAIN.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 Work Phone: [facility] 08-23-2023 11:36-0400 Systolic blood pressure 124 mm[Hg] Barby Val [employer]RIMP TRAWLER CAPTAIN.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 Work Phone: [facility] 05-15-2023 13:06-0500 Body height 175.[address] Nico Xiao Work Phone: [facility] 05-15-2023 13:04-0500 Body mass index (BMI) [Ratio] 30.7 kg/m2 Dr. Nico Xiao Work Phone: [facility] 05-15-2023 13:04-0500 Body weight 94.[address] Nico Xiao Work Phone: [phone] [place] [address] 05-15-2023 13:04-0500 Diastolic blood pressure 80 mm[Hg] Dr. Nico Xiao Work Phone: [facility] 05-15-2023 13:04-0500 Systolic blood pressure 110 mm[Hg] Dr. Nico Xiao Work Phone: [facility] 02-07-2023 10:54-0500 Body weight 91.63 kg Barby Val [employer]RIMP TRA[employer]ER CAPTAIN.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 Work Phone: [facility] 02-07-2023 10:54-0500 Diastolic blood pressure 82 mm[Hg] Barby Val [employer] TRA[employer]ER CAPTAIN.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 Work Phone: [facility] 02-07-2023 10:54-0500 Heart rate 89 /min Barby Val [employer] CAPTAIN.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 Work Phone: [facility] 02-07-2023 10:54-0500 SaO2% (BldA) [Mass fraction] 97 % Barby Val [employer]ER CAPTAIN.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 Work Phone: [facility] 02-07-2023 10:54-0500 Systolic blood pressure 122 mm[Hg] Barby Val [employer] TRA[employer]ER CAPTAIN.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 Work Phone: [facility] 01-30-2023 13:06-0500 Body height 175.[address] Nico Xiao Work Phone: [facility] 01-30-2023 13:04-0500 Body mass index (BMI) [Ratio] 30.4 kg/m2 Dr. Nico Xiao Work Phone: [facility] 01-30-2023 13:04-0500 Body weight 93.[address] Nico Xiao Work Phone: [facility] 01-30-2023 13:04-0500 Diastolic blood pressure 73 mm[Hg] Dr. Nico Xiao Work Phone: [facility] 01-30-2023 13:04-0500 Systolic blood pressure 109 mm[Hg] Dr. Nico Xiao Work Phone: [facility] 01-11-2023 11:31-0400 Body weight 92.08 kg Babry Val [employer]RIMP TRAWLER CAPTAIN.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 Work Phone: [facility] 01-11-2023 11:31-0400 Diastolic blood pressure 82 mm[Hg] Barby Val [employer]RIMP TRAWLER CAPTAIN.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 Work Phone: [facility] 01-11-2023 11:31-0400 Heart rate 91 /min Barby Val [employer]RIMP TRA[employer]ER CAPTAIN.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 Work Phone: [facility] 01-11-2023 11:31-0400 SaO2% (BldA) [Mass fraction] 98 % Barby Val [employer] TRA[employer]ER CAPTAIN.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 Work Phone: [facility] 01-11-2023 11:31-0400 Systolic blood pressure 118 mm[Hg] Barby Avl [employer]RIMP TRAWLER CAPTAIN.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 Work Phone: [facility] 05-20-2022 09:16-0500 Body temperature 98.01 [degF] Lidya Triny [employer] CAPTAIN.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 Work Phone: [facility] 05-20-2022 09:16-0500 Body weight 89.18 kg Lidya Triny [employer] TRA[employer]ER CAPTAIN.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 Work Phone: [facility] 05-20-2022 09:16-0500 Diastolic blood pressure 78 mm[Hg] Lidya Triny [employer]RIMP TRA[employer]ER CAPTAIN.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 Work Phone: [facility] 05-20-2022 09:16-0500 Heart rate 93 /min Lidya Triny [employer]RIMP TRAWLER CAPTAIN.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 Work Phone: [facility] 05-20-2022 09:16-0500 Respiratory rate 21 /min Lidyaaleksandra Dohertyk [employer]RIMP TRA[employer]ER CAPTAIN.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 Work Phone: [facility] 05-20-2022 09:16-0500 SaO2% (BldA) [Mass fraction] 100 % Lidya Triny [employer]RIMP TRAWLER CAPTAIN.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 Work Phone: [facility] 05-20-2022 09:16-0500 Systolic blood pressure 112 mm[Hg] Lidya Agosto [employer]RIMP TRAWLER CAPTAIN.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 Work Phone: [facility] 04-11-2022 18:09-0500 Body height 175.26 cm [facility] 04-11-2022 18:09-0500 Body mass index (BMI) [Ratio] 26.6 kg/m2 [facility] 04-11-2022 18:09-0500 Body temperature 97.8 [degF] [facility] 04-11-2022 18:09-0500 Body weight 81.64 kg [facility] 04-11-2022 18:09-0500 Diastolic blood pressure 87 mm[Hg] [facility] 04-11-2022 18:09-0500 Heart rate 74 /min [facility] 04-11-2022 18:09-0500 Respiratory rate 16 /min [facility] 04-11-2022 18:09-0500 SaO2% (BldA) [Mass fraction] 100 % [facility] 04-11-2022 18:09-0500 Systolic blood pressure 124 mm[Hg] [facility] 01-04-2022 14:13-0400 Body height 175.3 cm Nico Xiao MD Work Phone: [facility] 01-04-2022 14:13-0400 Body temperature 98.2 [degF] Nico Xiao MD Work Phone: [facility] 01-04-2022 14:13-0400 Body weight 84.82 kg Nico Xiao MD Work Phone: [facility] 01-04-2022 14:13-0400 Diastolic blood pressure 70 mm[Hg] Nico Xiao MD Work Phone: [facility] 01-04-2022 14:130400 Heart rate 70 /min Nico Xiao MD Work Phone: [facility] 01-04-2022 14:130400 Respiratory rate 12 /min Nico Xiao MD Work Phone: [facility] 01-04-2022 14:130400 SaO2% (BldA) [Mass fraction] 98 % Nico Xiao MD Work Phone: [facility] 01-04-2022 14:130400 Systolic blood pressure 112 mm[Hg] Nico Xiao MD Work Phone: [facility] Encounters Encounter Date Encounter Type Care Provider Facility Start: 02-03-2025 End: 02-03-2025 ambulatory [facility] Facility:[facility] Start: 09-24-2024 End: 09-24-2024 Patient encounter procedure Rosalinda Gutierrez APRN.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 Work Phone: Otolaryngology Comment on above: Bilateral impacted c erumen (Primary Dx) Start: 09-24-2024 End: 09-24-2024 ambulatory ROSALINDA GUTIERREZ Facility:[facility] Start: 09-10-2024 End: 09-10-2024 Office outpatient visit 15 minutes Nico Xiao MD Work Phone: [facility] [place] Comment on above: Right ear pain (Prim marli Dx); Overweight; Hypothyroidism, unspecified type; Excessive cerumen in both ear canals; Obesity, Class I, BMI 30-34.9 Start: 09-10-2024 End: 09-10-2024 ambulatory NICO GANLACY Facility:[facility] Start: 08-12-2024 End: 08-21-2024 ambulatory Ricarda Bravo APRN.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 Work Phone: [facility] [place] Start: 08-12-2024 End: 08-21-2024 Follow-up encounter Ricarda Bravo APRN.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 Work Phone: [facility] [place] Comment on above: Billing Query Follow Up Start: 04-22-2024 End: 04-26-2024 ambulatory Ricarda Green Julio César [employer] TRAWLER CAPTAIN.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 Work Phone: [facility] [place] Comment on above: Insurance Issue Start: 04-02-2024 End: 04-03-2024 ambulatory Ricarda HowardJulio César [employer] TRAWLER CAPTAIN.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 Work Phone: [facility] [place] Comment on above: Prescription Start: 04-01-2024 End: 04-02-2024 ambulatory Ricarda Bravo [employer]RIMP TRAWLER CAPTAIN.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 Work Phone: [facility] [place] Start: 04-01-2024 End: 04-02-2024 Follow-up encounter Ricarda Green Julio César JAS.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 Work Phone: [facility] [place] Comment on above: Medication Follow Up Start: 03-12-2024 End: 03-12-2024 ambulatory RICARDA Norma JULIO CÉSAR Facility:[facility] Start: 03-08-2024 End: 03-08-2024 ambulatory Ricarda Bravo SHRIMP TRAWLER CAPTAIN.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 Work Phone: [facility] [place] Comment on above: Obesity, Class I, BM I 30-34.9 (Primary Dx); Hypothyroidism, unspecified type; Anxiety and depression; Excessive drinking of alcohol Start: 03-08-2024 End: 03-08-2024 Telemedicine consultation with patient Ricarda Bravo JAS.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 Work Phone: Internal [facility] [place] Start: 01-24-2024 End: 01-29-2024 ambulatory Nico Xiao MD Work Phone: Internal Medicine [facility] [place] Start: 11-30-2023 End: 11-30-2023 Telephone encounter Nico Xiao MD Work Phone: [facility] [place] Start: 11-20-2023 End: 11-21-2023 ambulatory 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 Phone: [facility] [place] Comment on above: Medication query Start: 10-20-2023 Refill 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 Phone: Internal [facility] [place] Comment on above: Med Change Request Start: 10-10-2023 Telephone encounter Nico antunez MD Work Phone: Internal [facility] Comment on above: Insurance Authorizat ion Start: 10-09-2023 ambulatory 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 Phone: Internal [facility] Comment on above: Medication Query Upd ate Start: 10-04-2023 End: 10-04-2023 ambulatory Barby Jarquinr SHRIMP TRAWLER CAPTAIN.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 Work Phone: Internal [facility] [place] Comment on above: Excessive drinking o f alcohol (Primary Dx); Mixed obsessional thoughts and acts; Hypothyroidism, unspecified type; Obesity, Class I, BMI 30-34.9 Start: 10-04-2023 End: 10-04-2023 Telemedicine consultation with patient 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 Phone: Internal [facility] Start: 10-02-2023 ambulatory Barby Jarquinr SHRIMP TRAWLER CAPTAIN.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 Work Phone: Internal [facility] Comment on above: Poison Carlyn Start: 09-19-2023 ambulatory Nico Farrell Work Phone: Internal [place] [id number] Start: 08-23-2023 End: 08-23-2023 Patient encounter procedure Barby Neal SHRIMP TRAWLER CAPTAIN.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 Work Phone: Internal [facility] Comment on above: Excessive drinking o f alcohol (Primary Dx); Mixed obsessional thoughts and acts; Anxiety and depression Start: 08-13-2023 Refill Barby Val SHRIMP TRAWLER CAPTAIN.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 Work Phone: [facility] Comment on above: Refill Request Start: 06-08-2023 End: 06-08-[address] Nico Xiao Work Phone: [facility] Work Phone: Start: 06-08-2023 End: 06-08-[address] Nico Xiao Work Phone: [facility] Work Phone: Start: 06-06-2023 End: 06-06-[address] Nico Xiao Work Phone: [facility] Work Phone: Start: 06-06-2023 End: 06-06-[address] Nico Xiao Work Phone: [facility] Work Phone: Start: 05-15-2023 End: 05-15-2023 ambulatory [facility] Facility:[facility] Start: 05-15-2023 Refill 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 Phone: Internal [facility] [place] Comment on above: Refill Request Start: 05-15-2023 End: 05-15-[address] Nico Xiao Work Phone: [facility] Work Phone: Start: 02-08-2023 ambulatory Nico Farrell Work Phone: Internal Medicine [facility] Start: 02-07-2023 End: 02-07-2023 Patient encounter procedure 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 Phone: Internal [facility] Comment on above: Anxiety and depressi on (Primary Dx); Mixed obsessional thoughts and acts; Hypothyroidism, unspecified type; Encounter for immunization Start: 02-01-2023 End: 02-01-2023 ambulatory Nico Xiao Facility:[facility] Start: 01-30-2023 End: 01-30-2023 ambulatory [facility] Facility:[facility] Start: 01-30-2023 End: 01-30-[address] Nico Xiao Work Phone: [facility] Work Phone: Start: 01-26-2023 End: 01-26-2023 Patient encounter procedure [facility], [facility] Work Phone: Start: 01-26-2023 End: 01-26-[address] Nico Xiao Work Phone: [facility] Work Phone: Start: 01-25-2023 End: 01-25-2023 ambulatory Isa Campos [facility] Work Phone: Start: 01-25-2023 End: 01-25-2023 Patient encounter procedure [facility], [facility] Start: 01-11-2023 End: 01-11-2023 Patient encounter procedure 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 Phone: Internal [facility] [place] Comment on above: Anxiety and depressi on (Primary Dx); Mixed obsessional thoughts and acts; Hypothyroidism, unspecified type; Weight gain; Other fatigue; Encounter for immunization Start: 11-15-2022 ambulatory 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 Phone: [facility] [place] Comment on above: Change Prescription from Generic to Name Brand Start: 11-04-2022 Refill 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 Phone: [facility] [place] Comment on above: Refill Request Start: 10-10-2022 End: 10-10-2022 ambulatory Sierra Brown APRN.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 Work Phone: Telemedicine Comment on above: Allergic contact jenny matitis due to plant (Primary Dx) Start: 10-10-2022 End: 10-10-2022 Telemedicine consultation with patient Sierra T Kevin MARK.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 Work Phone: [facility] Start: 05-20-2022 End: 05-20-2022 Subsequent hospital visit by physician Jasiel [facility] Work Phone: Radiology Comment on above: Foot pain, left [M79 .672] Start: 05-20-2022 End: 05-20-2022 Patient encounter procedure Lidya Agosto APRN.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 Work Phone: [facility] Comment on above: Foot pain, left (Betsy harry Dx) Start: 04-11-2022 End: 04-11-2022 Emergency department patient visit [facility] Start: 01-17-2022 End: 01-17-2022 Patient encounter procedure Richard Roca MD Work Phone: Orthopaedics Comment on above: Clinodactyly of fing er (Primary Dx); Congenital deformity of finger Start: 01-17-2022 End: 01-17-2022 Subsequent hospital visit by physician Jasiel [facility] Selby Work Phone: Radiology Comment on above: Pain in finger of le ft hand [M79.645] Start: 01-11-2022 Orders Only Richard Roca MD Work Phone: Orthopaedics Comment on above: Pain of finger of ri ght hand (Primary Dx); Pain in finger of right hand; Pain in finger of left hand Start: 01-04-2022 End: 01-04-2022 Patient encounter procedure Nico Xiao MD Work Phone: [facility] [place] Comment on above: Anxiety and depressi on (Primary Dx); Need for influenza vaccination; Special screening examination for viral disease; Screening for HIV (human immunodeficiency virus); Hypothyroidism, unspecified type; Congenital deformity of finger Start: 12-14-2021 ambulatory Nico Farrell Work Phone: Internal Medicine [facility] [place] Start: 02-22-2018 End: 02-22-2018 Patient encounter procedure [facility] Start: 08-03-2017 Ambulatory [facility] Procedures Date Procedure Procedure Detail Performing Clinician Start: 06-08-[address] Nico Xiao Work Phone: Start: 06-06-2023 Screening mammography Bud Xiao Work Phone: Start: 02-07-2023 [employer] COVI D-19 VACCINE ( SEASON) AGE 12+ YR Barby Neal SHRIMP TRAWLER CAPTAIN.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 Work Phone: Start: 01-26-2023 Pelvic echography Start: 01-11-2023 INFLUENZA VACCINE, A GE 6 MO - 64 YR, QUADRIVALENT (AFLURIA, FLULAVAL, FLUZONE) 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 Phone: Start: 05-20-2022 Radex foot complete minimum 3 views Lidya Agosto SHRIMP TRAWLER CAPTAIN.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 Work Phone: Start: 01-17-2022 Radex fingr minimum 2 views Richard Roca MD Work Phone: Start: 01-17-2022 Radex fingr minimum 2 views Richard Roca MD Work Phone: Plan of Treatment Date Care Activity Detail Author Start: 02-15-2034 Urine microalbumin profile DTaP,Tdap,Td Vaccine (4 - Td or Tdap) [facility] Start: 04-30-2028 Urine microalbumin profile [facility] Start: 09-10-2025 Annual PCP Team Chronic Disease Visit Annual PCP Team Chronic Disease Visit [facility] Start: 03-08-2025 Annual PCP Team Chronic Disease Visit Annual PCP Team Chronic Disease Visit [facility] Start: 11-25-2024 Influenza vaccination Influ[facility] Vacc[facility] (#[facility] Start: 10-03-2024 Annual PCP Team Chronic Disease Visit Annual PCP Team Chronic Disease Visit [facility] Start: 09-24-2024 End: 09-24-2024 Patient encounter procedure 09/24/2024 12:40 PM EDT Office Visit Otolaryngology [address] [place] [address] Rosalinda Gutierrez, SHRIMP TRAWLER CAPTAIN.[facility] [address] [place] [address] Right ear pain [H92.01] Otolaryngology Comment on above: Right ear pain [H92.01] Start: 08-22-2024 Annual PCP Team Chronic Disease Visit Annual PCP Team Chronic Disease Visit [facility] Start: 08-02-2024 HPV TESTING HPV TESTING [facility] Start: 08-02-2024 PAP TESTING PAP TESTING [facility] Start: 08-02-2024 Screening for malignant neoplasm of cervix [facility] Start: 03-08-2024 End: 06-07-2024 Lipid 1996 panel - Serum or Plasma LIPID PANEL BASIC Lab Routine Obesity, Class I, BMI 30-34.9 Expected: 03/08/2024, Expires: 06/07/2024 [facility] Comment on above: Expected: 03/08/2024, Expires: Start: 03-08-2024 End: 06-07-2024 Thyrotropin [Units/volume] in Serum or Plasma THYROID STIMULATING HORMONE Lab Routine Hypothyroidism, unspecified type Expected: 03/08/2024, Expires: 06/07/2024 [place] Work Phone: Comment on above: Expected: 03/08/2024, Expires: 5 Start: 03-01-2024 Hepatitis B Vaccine (2 of 2 - CpG 2-dose series) Hepatitis B Vaccine (2 of 2 - CpG 2-dose series) [facility] Start: 02-08-2024 Annual PCP Team Chronic Disease Visit Annual PCP Team Chronic Disease Visit [facility] Start: 01-12-2024 Annual PCP Team Chronic Disease Visit Annual PCP Team Chronic Disease Visit [facility] Start: 11-26-2023 Covid-19 Vaccine () Covid-19 Vaccine () [facility] Start: 11-26-2023 Influenza vaccination Influenza Vaccine (#1) [facility] Start: 10-04-2023 End: 10-04-2023 Follow-up encounter 10/04/2023 11:20 AM EDT [facility] Internal Medicine [address] [address] Barby Neal APRN.[facility] [address] [place] [address] medication follow up Internal Medicine [place] Comment on above: medication follow up Start: 09-19-2023 End: 12-19-2023 Thyrotropin [Units/volume] in Serum or Plasma THYROID STIMULATING HORMONE Lab Routine Hypothyroidism Expected: 09/19/2023, Expires: 12/19/2023 [place] Work Phone: Comment on above: Expected: 09/19/2023, Expires: Start: 08-10-2023 ANNUAL PCP TEAM CHRONIC DISEASE VISIT ANNUAL PCP TEAM CHRONIC DISEASE VISIT [facility] Start: 01-04-2023 ANNUAL PCP TEAM CHRONIC DISEASE VISIT ANNUAL PCP TEAM CHRONIC DISEASE VISIT [facility] Start: 11-25-2022 Covid-19 Vaccine ( season) Covid-19 Vaccine ( season) [facility] Start: 11-25-2022 Influenza vaccination INFLUENZA (#1) [facility] Start: 08-02-2022 Screening for malignant neoplasm of cervix Cervical Cancer Screening [facility] Start: 01-04-2022 End: 03-06-2022 Hepatitis C virus Ab [Presence] in Serum HEP C AB IA W/CONF SCRN Lab Routine Special screening examination for viral disease Expected: 01/04/2022, Expires: 03/06/2022 [place] Work Phone: Comment on above: Expected: 01/04/2022, Expires: 2 Start: 01-04-2022 End: 03-06-2022 HIV 1+2 Ab [Presence] in Serum or Plasma by Immunoassay HIV 1 2 COMBO(AG/AB),WITH REFLEX TO DIFFERENTIATION Lab Routine Screening for HIV (human immunodeficiency virus) Expected: 01/04/2022, Expires: 03/06/2022 [place] Work Phone: Comment on above: Expected: 01/04/2022, Expires: 2 Start: 12-14-2021 End: 02-13-2022 SCHEDULE LAB TESTING SCHEDULE LAB TESTING Lab Routine Expected: 12/14/2021, Expires: 02/13/2022 [place] Work Phone: Comment on above: Expected: 12/14/2021, Expires: 2 Start: 12-14-2021 End: 02-13-2022 Thyrotropin [Units/volume] in Serum or Plasma TSH BLD Lab Routine Hypothyroidism Expected: 12/14/2021, Expires: 02/13/2022 [place] Work Phone: Comment on above: Expected: 12/14/2021, Expires: 2 Start: 11-25-2021 Influenza vaccination INFLUENZA (#1) [facility] Start: 06-23-2021 ANNUAL PCP TEAM CHRONIC DISEASE VISIT ANNUAL PCP TEAM CHRONIC DISEASE VISIT [facility] Start: 2021 Mammography [facility] Start: 2021 Screening for malignant neoplasm of breast Mammogram Screening [facility] Start: 09-05-2020 COVID-19 VACCINE (3 - Booster for Pfizer series) COVID-19 VACCINE (3 - Booster for Pfizer series) [facility] Start: 09-05-2020 COVID-19 VACCINE (3 - Pfizer series) COVID-19 VACCINE (3 - Pfizer series) [facility] Start: 02-18-2000 Hepatitis B Vaccine (1 of 3 - 19+ 3-dose series) Hepatitis B Vaccine (1 of 3 - 19+ 3-dose series) [facility] Start: 1999 HEPATITIS C SCREENING HEPATITIS C SCREENING [facility] Start: 1999 HIV SCREENING HIV SCREENING [facility] Start: 1981 HEPATITIS B (1 of 3 - 3-dose series) HEPATITIS B (1 of 3 - 3-dose series) [facility] Start: 1981 Hepatitis B Vaccine (1 of 3 - 3-dose series) Hepatitis B Vaccine (1 of 3 - 3-dose series) [facility] End: 02-22-2025 DBT Breast - bilateral screening CIPRIANO SCREENING W NANCY Radiology Routine Encounter for screening mammogram for breast cancer 1 Occurrences starting 01/24/2024 until 02/22/2025 [place] Work Phone: Comment on above: 1 Occurrences starting 01/24/2024 until 02/22/2025 Glucose [Mass/volume ] in Serum or Plasma [facility] Hemoglobin A1c/Hemoglobin.total in Blood [facility] INFLUENZA VACCINE QUADRIVALENT 6 MO - 64 YRS IM INFLUENZA VACCINE QUADRIVALENT 6 MO - 64 YRS IM Immunization/Injection Routine Need for influenza vaccination Ordered: 01/04/2022 [place] Work Phone: Comment on above: Ordered: 01/04/2022 End: 03-09-2024 CIPRIANO SCREENING CIPRIANO SCREENING Radiology Routine Encounter for screening mammogram for breast cancer 1 Occurrences starting 02/08/2023 until 03/09/2024 [place] Work Phone: Comment on above: 1 Occurrences starting 02/08/2023 until 03/09/2024 Patient Education Bruises (Contusions) [facility] Work Phone: Patient referral [facility] Work Phone: Serum insulin measurement [facility] End: 02-10-2023 XR DIGIT GENERAL 3V FRONTAL/LAT/OBL LEFT XR DIGIT GENERAL 3V FRONTAL/LAT/OBL LEFT Radiology Routine Pain in finger of left hand 1 Occurrences starting 01/11/2022 until 02/10/2023 [place] Work Phone: Comment on above: 1 Occurrences starting 01/11/2022 until 02/10/2023 End: 02-10-2023 XR DIGIT GENERAL 3V FRONTAL/LAT/OBL RIGHT XR DIGIT GENERAL 3V FRONTAL/LAT/OBL RIGHT Radiology Routine Pain of finger of right hand 1 Occurrences starting 01/11/2022 until 02/10/2023 [place] Work Phone: Comment on above: 1 Occurrences starting 01/11/2022 until 02/10/2023 [facility] Immunizations Immunization Date Immunization Notes Care Provider Erika [facility] 01-30-2024 influenza virus vaccine, unspecified formulation Rosalinda Gutierrez APRN.[facility] Work Phone: [facility] 02-07-2023 COVID-19 vaccine, ag e 12+ yr, season (PFIZER-BIONTECH) Barby Neal APRN.[facility] Work Phone: [facility] Work Phone: 01-11-2023 influenza, injectabl e, quadrivalent, contains preservative 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 Phone: [facility] Work Phone: 01-11-2023 influenza virus vaccine, unspecified formulation Barby Nela APRN.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 Work Phone: [facility] 07-11-2020 COVID-19 original vaccine, age 12+ yr, monovalent (PFIZER-BIONTECH - PURPLE TOP) Nico Xiao MD Work Phone: [facility] 06-13-2020 COVID-19 original vaccine, age 12+ yr, monovalent (PFIZER-BIONTECH - PURPLE TOP) Nico Xiao MD Work Phone: [facility] 01-26-2019 Influenza, injectabl e, Madin Radhika Canine Kidney, quadrivalent with preservative Nico Xiao MD Work Phone: [facility] Work Phone: 01-18-2019 influenza virus vaccine, unspecified formulation Nico Xiao MD Work Phone: [facility] Work Phone: 04-30-2018 diphtheria, tetanus toxoids and acellular pertussis vaccine, unspecified formulation Nico Xiao MD Work Phone: [facility] Work Phone: 04-30-2018 tetanus toxoid, reduced diphtheria toxoid, and acellular pertussis vaccine, adsorbed Nico Xiao MD Work Phone: [facility] Work Phone: 02-08-2018 influenza virus vaccine, unspecified formulation Nico Xiao MD Work Phone: [facility] Work Phone: 01-30-2018 Influenza, injectabl e, Madin Palmer Canine Kidney, preservative free, quadrivalent Nico Xiao MD Work Phone: [facility] Work Phone: NEGATED: Highlighted row has not occurred!01-04-2022 influenza, injectable, quadrivalent, contains preservative Nico Xiao MD Work Phone: [facility] Work Phone: Comment on above: Deferred: OTHER - JHeber Tucker LPN Payers Date Payer Category Payer Self-pay [id number] 2022 Blue Cross Blue [facility] BLUE ACCE PPO [id number] 2022 Unknown [id number] 2018 Unknown 1981 Unknown [id number] Unknown [id number] Unknown [id number] Unknown [id number] Unknown [id number] Unknown [id number] Unknown [id number] Unknown [id number] Unknown [id number] Social History Date Type Detail Facility Start: 08-12-2015 End: 01-04-2022 Tobacco smoking status NHIS Never smoked tobacco [facility] Work Phone: Start: 08-12-2015 End: 01-04-2022 Tobacco use and exposure Smokeless tobacco non-user [facility] Work Phone: Start: 06-25-2020 End: 09-24-2024 Alcohol intake Current drinker of alcohol (finding) [facility] Start: 08-12-2015 History SDOH Alcohol Comment Occasionally [facility] Start: 1980 Sex Assigned At Not on file [facility] Start: 01-04-2022 History SDOH Alcohol Frequency 5 [facility] Start: 01-04-2022 History SDOH Alcohol Std Drinks 2 [facility] Start: 01-04-2022 History SDOH Alcohol Binge 4 [facility] Start: 01-04-2022 History SDOH Social Connections Christianity 3 [facility] Start: 01-04-2022 History SDOH Social Connections Membership 1 [facility] Start: 12-25-2021 End: 01-17-2022 Exposure to SARS-CoV-2 (event) Not sure [facility] Work Phone: Start: 04-11-2022 End: 05-15-2023 Tobacco smoking status NHIS Unknown if ever smoked [facility] Start: 07-13-2018 None [facility] Start: 1980 Sex Assigned At Female [facility] Start: 08-08-2022 End: 08-22-2023 History of Social function [facility] Start: 08-08-2022 End: 08-22-2023 Social connection and isolation panel [facility] Do you belong to any clubs or organizations such as orthodoxy groups, unions, fraternal or athletic groups, or school groups? Yes [facility] Are you now , , , , never or living with a partner? [facility] How often to you hav e a drink containing alcohol? 4 or more times a week [facility] How many standard drinks containing alcohol do you have on a typical day? 3 or 4 [facility] How often do you hav e 6 or more drinks on 1 occasion? Weekly [facility] How hard is it for y ou to pay for the very basics like food, housing, medical care, and heating Not hard at all [facility] Do you feel stress - tense, restless, nervous, or anxious, or unable to sleep at night because your mind is troubled all the time - these days [OSQ] Only a little [facility] (I/We) worried rufus er (my/our) food would run out before (I/we) got money to buy more. Never true [facility] In the past 12 month s, was there a time when you were not able to pay the mortgage or rent on time? No [facility] How many standard drinks containing alcohol do you have on a typical day? 5 or 6 [facility] Do you feel stress - tense, restless, nervous, or anxious, or unable to sleep at night because your mind is troubled all the time - these days [OSQ] To some extent [facility] How often to you hav e a drink containing alcohol? 2-3 time sa week [facility] How often do you hav e 6 or more drinks on 1 occasion? Less than monthly [facility] NEGATED: Highlighted row [facility] Clinical Notes 01-04-2022 to 02-03-2025 Rosalinda Gutierrez APRN.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 - 09/24/2024 12:34 PM EDTPatient Nico Price MD - 09/10/2024 11:21 AM EDTTelephone Encounter - Ricarda Bravo APRN.CNP - 08/13/2024 12:05 PM EDT Note Date & Type Note Facility 02-03-2025 Note HNO ID: [id number] Author: JANET JONES RT(R) Service: ? Author Type: Chronometer Tester Type: Progress Notes Filed: 02/03/2025 17:40 Note Text: Radiology Service Progress Note PATIENT NAME: Anup Delgado DATE OF SERVICE: February 03, 2025 TIME: 5:34 PM PATIENT IDENTITY VERIFICATION COMPLETED USING TWO (2) IDENTIFIERS: Name and Date of confirmed by patient verbally. FALL SCREENING: Has the patient had 2 falls in the last year or 1 fall with injury or currently using an Ambulatory Assistive Device (Walker, Cane, Wheelchair, Crutches, etc.)? No PATIENT GENDER DATA: Assigned female at . status: : No status: NO. PATIENT RELEVANT IMPLANT DATA REVIEWED: Yes PATIENT PRESENTS WITH AN IMPLANTABLE OR ATTACHED DRAWER IN STITCH BONDING MACHINE: No RADIOLOGY DEPARTMENT: General X-ray: Exam(s) Completed: Chest X-Ray PERIPHERAL IV DATA: Not applicable SIGNED BY: RT Maru(R) February 03, 2025 5:34 PM [facility] 02-03-2025 Note HNO ID: [id number] Author: TREVER ASHFORD APRN.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 Service: ? Author Type: Nurse Practitioner Type: Progress Notes Filed: 02/03/2025 18:53 Note Text: URGENT CARE CATIE Delgado is a 44 year old female presenting with a dry non-productive cough, chest congestion x 3 days. Patient reports she originally had a runny nose, sore throat, and cough 3 weeks ago that started to improve. She reports her cough improved until 3 days ago and last night was the worst she had multiple coughing fits to the point that she vomited x 4 episodes. Associated symptoms include fever, chills, body-aches, nasal congestion, and shortness of breathe and what she notes as labored breathing. She notes that she has not taken anything to alleviate symptoms. Review of Systems Constitutional: Positive for chills, fatigue and fever. HENT: Positive for congestion. Negative for ear discharge, ear pain, postnasal drip, rhinorrhea (reprts x 1 episode - resolved), sinus pressure, sinus pain, sore throat and trouble swallowing. Eyes: Negative for pain, discharge, redness and itching. Respiratory: Positive for cough (dry non-productive), chest tightness and shortness of breath (reports labored breathing). Negative for wheezing. Cardiovascular: Negative for chest pain. Gastrointestinal: Negative for abdominal distention, abdominal pain, nausea and vomiting. Allergic/Immunologic: Positive for environmental allergies. Neurological: Positive for headaches. Negative for dizziness and light-headedness. Objective BP 122/76 Pulse 92 Temp (!) 38.2 ?C (100.7 ?F) Resp 18 Wt 93.1 kg (205 lb 4 oz) LMP 08/14/2023 (Exact Date) SpO2 96% BMI 30.31 kg/m? Physical Exam Vitals and nursing note reviewed. Constitutional: General: She is awake. She is not in acute distress. Appearance: Normal appearance. She is not ill-appearing or toxic-appearing. HENT: Head: Normocephalic and atraumatic. Right Ear: Tympanic membrane, ear canal and external ear normal. No laceration, drainage or swelling. Tympanic membrane is not injected, scarred, perforated, erythematous, retracted or bulging. Left Ear: Tympanic membrane, ear canal and external ear normal. No laceration, drainage or swelling. Tympanic membrane is not injected, scarred, perforated, erythematous, retracted or bulging. Nose: Nose normal. No congestion or rhinorrhea. Right Nostril: No occlusion. Left Nostril: No occlusion. Right Turbinates: Not enlarged, swollen or pale. Left Turbinates: Not enlarged, swollen or pale. Right Sinus: No maxillary sinus tenderness or frontal sinus tenderness. Left Sinus: No maxillary sinus tenderness or frontal sinus tenderness. Mouth/Throat: Lips: [place]. Mouth: Mucous membranes are moist. Tongue: No lesions. Tongue does not deviate from midline. Palate: No mass and lesions. Pharynx: Oropharynx is clear. Uvula midline. Posterior oropharyngeal erythema (slightly erythemas) present. No pharyngeal swelling, oropharyngeal exudate, uvula swelling or postnasal drip. Tonsils: No tonsillar exudate or tonsillar abscesses. 1+ on the right. 1+ on the left. Eyes: Conjunctiva/sclera: Conjunctivae normal. Pupils: Pupils are equal, round, and reactive to light. Cardiovascular: Rate and Rhythm: Normal rate and regular rhythm. Heart sounds: Normal heart sounds, S1 normal and S2 normal. Pulmonary: Effort: Pulmonary effort is normal. No accessory muscle usage or respiratory distress. Breath sounds: No stridor. Examination of the right-lower field reveals decreased breath sounds. Examination of the left-lower field reveals rhonchi. Decreased breath sounds and rhonchi present. Comments: - during the examination - pt was seen having multiple coughing fits Lymphadenopathy: Head: Right side of head: No submental, submandibular, tonsillar, preauricular, posterior auricular or occipital adenopathy. Left side of head: No submental, submandibular, tonsillar, preauricular, posterior auricular or occipital adenopathy. Skin: General: Skin is warm and dry. Capillary Refill: Capillary refill takes less than 2 seconds. Neurological: Mental Status: She is alert and oriented to person, place, and time. Psychiatric: Mood and Affect: Mood normal. {ASSESSMENT/PLAN: 1. Acute cough - ICD9: 786.2, ICD10: R05.1 - XR CHEST 2V FRONTAL/LAT RESULT: Lines, tubes, and devices: None.Lungs and pleura: No consolidation. No lung mass. No pleural effusion. No pneumothorax. Cardiomediastinal silhouette: Normal cardiomediastinal silhouette. Bones and soft tissues: Unremarkable. 2. Acute upper respiratory infection - ICD9: 465.9, ICD10: J06.9 - Discussed viral etiology and rationale for treatment. - Symptomatic treatment with prn analgesia - Supportive care with fluids and rest - The patient may also use OTC decongestants prn, OTC cough and cold meds as needed, and warm salt water gargles, throat lozenges a (more content not included)... [facility] 12-24-2024 Note Patient Outreach (IN TMWS) ANUP DELGADO ([id number]) 1980 F Date Time Provider Department 12/24/24 NICO XIAO During your visit today, we recorded the following information about you: Allergies As of Date: 12/24/2024 (No Known Allergies) Date Reviewed: 09/24/2024 Reviewed by: Kathy Putnam LPN - Fully Assessed Visit Diagnosis:Encounter for screening mammogram for breast cancer [Z12.31] Order(s):[facility] SCREENING W NANCY [[id number]] Order #: [id number] FUTURE Prescriptions as of 01/24/2025 - semaglutide (OZEMPIC) 0.25 mg or 0.5 mg (2 mg/3 mL) pen Inject 0.5 mg subcutaneously one time a week. Please add vit b12 to the injection - FLUoxetine (PROZAC) 20 mg capsule Take 1 capsule by mouth once daily. - SYNTHROID 100 mcg tablet Take 1 tablet by mouth daily before breakfast. 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 Author Type: Nurse Practitioner Type: Progress Notes Filed: 09/24/2024 13:07 Note Text: This patient comes in for ear cleaning. Patient indicates that she has a history of wax buildup in her ears. Lately the patient has noticed blockage in the ears and would like to have them cleaned. Patient denies any other significant head and neck complaints. Physical exam revealed bilateral significant cerumen impaction. Ears were cleaned using alligator forceps and curette. Both canals the TMs are intact. Once the ears were cleaned patient felt relief of her ear blockage and return of his hearing back to normal. Patient will have followup as needed or in 1 year. Rosalinda Gutierrez APRN, CNP [facility] 09-24-2024 History of Presen t illness Narrative This patient comes in for ear cleaning. Patient indicates that she has a history of wax buildup in her ears. Lately the patient has noticed blockage in the ears and would like to have them cleaned. Patient denies any other significant head and neck complaints. Physical exam revealed bilateral significant cerumen impaction. Ears were cleaned using alligator forceps and curette. Both canals the TMs are intact. Once the ears were cleaned patient felt relief of her ear blockage and return of his hearing back to normal. Patient will have followup as needed or in 1 year. Rosalinda Gutierrez APRN, CNP documented in this encounter [facility] 09-10-2024 Instructions Nico Xiao MD - 09/10/2024 11:44 AM EDT We discussed your ear discomfort: - Both of your ears are completely blocked with wax, which is preventing the eardrum from being visible. The wax does not appear hard or impacted but is completely blocking the ear canal. - You have been using Debrox drops, but they have not resolved the issue. - I will refer you to an ENT specialist to have the wax removed. We discussed your weight and lifestyle changes: - You have made significant progress with lifestyle changes, including exercising and reducing alcohol consumption. Your weight has decreased from 207 lbs to 193 lbs. - You expressed interest in potentially restarting semaglutide (Ozempic) to assist with further weight loss. I am supportive of this option. - I will send a prescription for semaglutide 0.5 mg to a compounding pharmacy in [place], [place], where it is available for approximately $100. You will need to pick it up in person. - Please ensure the pharmacy adds vitamin B12 to the prescription, as this is often recommended with semaglutide. We discussed your medical records and insurance concerns: - You shared concerns about past diagnoses, including excessive drinking of alcohol and obesity, being inaccurately documented and shared with your insurance company. I understand how upsetting this has been for you. - I will contact the [facility] to explore options for addressing these concerns, including the possibility of marking certain notes as sensitive to limit access. - Your BMI is now in the overweight category rather than obese, which may help prevent similar issues with insurance in the future. We discussed your mental health: - Your anxiety and depression are well-controlled with Prozac, and you are not currently experiencing any issues related to these conditions. Next steps: - Follow up with the ENT specialist for earwax removal. - software support specialist your semaglutide prescription from the compounding pharmacy in [place], [place], if you decide to proceed with this treatment. - Continue your healthy lifestyle changes, including regular exercise and a balanced diet. - I will follow up with the [facility] regarding your medical record and insurance concerns and keep you updated. Please let me know if you have any additional questions or concerns. documented in this encounter [facility] 09-10-2024 Note HNO ID: [id number] Author: NICO XIAO MD Service: ? Author Type: Physician Type: Progress Notes Filed: 09/17/2024 09:17 Note Text: Reason for Visit Follow up HPI Anup Delgado is a 44-year-old female presenting with ear discomfort and concerns about her medical records. Anup reports intermittent discomfort in her right ear for the past few months, describing it as feeling blocked and sometimes sore. She has been using Debrox ear drops, which provide temporary relief, but the discomfort recurs. She denies any sensation of inflammation. Anup also expresses concerns about her medical records and a recent insurance issue. She reports a challenging year, including the of her mother from cancer and the intensive care of her non-verbal autistic son. During this time, she developed a habit of drinking wine in the evenings and may have gained a little weight. She consulted with an RN, who prescribed naltrexone, which she took for 1-2 weeks. She reports that the medication helped her stop drinking, and she has since returned to a healthy lifestyle, now consuming socially with her , on Saturdays. She denies any history of addiction, stating that her drinking was a habit rather than an addiction. In February, she had an online appointment to renew her thyroid medication and check her cholesterol, which had been elevated. She received a bill for $600, which was not covered by insurance due to diagnoses of obesity and excessive alcohol consumption. She found this upsetting and inaccurate, as she was trying to maintain a healthy lifestyle. She reports that her cholesterol had increased for the first time, and she wanted to monitor it due to a family history of hypercholesterolemia. Anup was also prescribed a GLP-1 medication for weight loss, which she took at a low dose for a couple of months. She reports losing weight through lifestyle changes and is now 193 lbs, down from 207 lbs. Her usual weight is around 155-160 lbs. She stopped taking the medication due to the cost and confusion with her insurance. She has a history of anxiety and OCD, which she reports is well-controlled with Prozac. She denies any current issues with anxiety or depression. Social History Tobacco Use Smoking status: Never Smokeless tobacco: Never Vaping Use Vaping status: Never Used Substance Use Topics Alcohol use: Yes Comment: Occasionally Drug use: No Past medical history, appointments, medications, allergies reviewed. Pertinent Lab/Diagnostic Studies are reviewed and discussed today Current Outpatient Medications: FLUoxetine (PROZAC) 20 mg capsule SYNTHROID 100 mcg tablet semaglutide (OZEMPIC) 0.25 mg or 0.5 mg (2 mg/3 mL) [facility] Maintenance Mammogram Screening Cervical Cancer Screening Hepatitis B Vaccine(2 of 2 - CpG 2-dose series)@ Review Of Systems Constitutional: (+) weight gain Ears/Nose/Mouth/Throat: (+) ear fullness, (+) ear discomfort, (+) intermittent ear pain Physical Exam BP 120/82 Pulse 79 Resp 16 Wt 87.7 kg (193 lb 6.4 oz) LMP 08/14/2023 (Exact Date) SpO2 98% BMI 28.56 kg/m? GENERAL: NAD, alert and oriented. SKIN: Unremarkable, no rash or skin lesions. HEAD: Normocephalic. EYES: PERRLA, EOMI, conjunctiva clear. EARS: External ears normal. Both ear canals completely filled with cerumen, obscuring view of the tympanic membranes. LUNGS: Clear to auscultation bilaterally, no wheezes/rhonchi/rales. HEART: Regular rate and rhythm, no murmurs. No ectopy. EXTREMITIES: Normal, no deformities, no skin discoloration, no edema. NEURO: Awake, alert and oriented x3, cranial nerves II-XII grossly intact, normal gait, no involuntary motions. Labs: (February) Lipid panel: Cholesterol not significantly elevated. Lipid panel: Previously noted elevated cholesterol. Assessment and Plan 1. Right ear pain (H92.01) Excessive cerumen in both ear canals (H61.23) Both ear canals are completely occluded with cerumen, obstructing visualization of the tympanic membranes. Cerumen appears soft and non-impacted. - Referred to ENT for cerumen removal. 2. Overweight (E66.3) Obesity, Class I, BMI 30-34.9 (E66.811) Current weight is 193 lbs, down from 207 lbs. Patient has been making lifestyle changes, including increased exercise. Previously on a low dose of semaglutide from a compounding pharmacy, which was discontinued due to insurance and billing issues. - Discussed benefits of GLP-1 agonists for weight management. - Prescribed Ozempic 0.5 mg from a compounding pharmacy in [place], [place], with added vitamin B12. - Will contact the [facility] regarding insurance and billing issues related to previous diagnoses. 3. Hypothyroidism, unspecified type (E03.9) Stable on current medication regimen. Voice recognition software was used to compose this office note. Please excuse any unintended typographical errors. (more content not included)... [facility] 09-10-2024 History of Presen t illness Narrative Reason for Visit Follow up HPI Anup Delgado is a 44-year-old female presenting with ear discomfort and concerns about her medical records. Anup reports intermittent discomfort in her right ear for the past few months, describing it as feeling blocked and sometimes sore. She has been using Debrox ear drops, which provide temporary relief, but the discomfort recurs. She denies any sensation of inflammation. Anup also expresses concerns about her medical records and a recent insurance issue. She reports a challenging year, including the of her mother from cancer and the intensive care of her non-verbal autistic son. During this time, she developed a habit of drinking wine in the evenings and gained weight. She consulted with an RN, who prescribed naltrexone, which she took for 1-2 weeks. She reports that the medication helped her stop drinking, and she has since returned to a healthy lifestyle, now consuming about one bottle of wine per week, shared with her on Saturdays. She denies any history of addiction, stating that her drinking was a habit rather than an addiction. In February, she had an online appointment to renew her thyroid medication and check her cholesterol, which had been elevated. She received a bill for $600, which was not covered by insurance due to diagnoses of obesity and excessive alcohol consumption. She found this upsetting and inaccurate, as she was trying to maintain a healthy lifestyle. She reports that her cholesterol had increased for the first time, and she wanted to monitor it due to a family history of hypercholesterolemia. Anup was also prescribed a GLP-1 medication for weight loss, which she took at a low dose for a couple of months. She reports losing weight through lifestyle changes and is now 193 lbs, down from 207 lbs. Her usual weight is around 155-160 lbs. She stopped taking the medication due to the cost and confusion with her insurance. She has a history of anxiety and OCD, which she reports is well-controlled with Prozac. She denies any current issues with anxiety or depression. Social History Tobacco Use Smoking status: Never Smokeless tobacco: Never Vaping Use Vaping status: Never Used Substance Use Topics Alcohol use: Yes Comment: Occasionally Drug use: No Past medical history, appointments, medications, allergies reviewed. Pertinent Lab/Diagnostic Studies are reviewed and discussed today Current Outpatient Medications: FLUoxetine (PROZAC) 20 mg capsule SYNTHROID 100 mcg tablet semaglutide (OZEMPIC) 0.25 mg or 0.5 mg (2 mg/3 mL) pen Health Maintenance Mammogram Screening Cervical Cancer Screening Hepatitis B Vaccine(2 of 2 - CpG 2-dose series)@ Review Of Systems Constitutional: (+) weight gain Ears/Nose/Mouth/Throat: (+) ear fullness, (+) ear discomfort, (+) intermittent ear pain Physical Exam BP 120/82 Pulse 79 Resp 16 Wt 87.7 kg (193 lb 6.4 oz) LMP 08/14/2023 (Exact Date) SpO2 98% BMI 28.56 kg/m GENERAL: NAD, alert and oriented. SKIN: Unremarkable, no rash or skin lesions. HEAD: Normocephalic. EYES: PERRLA, EOMI, conjunctiva clear. EARS: External ears normal. Both ear canals completely filled with cerumen, obscuring view of the tympanic membranes. LUNGS: Clear to auscultation bilaterally, no wheezes/rhonchi/rales. HEART: Regular rate and rhythm, no murmurs. No ectopy. EXTREMITIES: Normal, no deformities, no skin discoloration, no edema. NEURO: Awake, alert and oriented x3, cranial nerves II-XII grossly intact, normal gait, no involuntary motions. Labs: (February) Lipid panel: Cholesterol not significantly elevated. Lipid panel: Previously noted elevated cholesterol. Assessment and Plan 1. Right ear pain (H92.01) Excessive cerumen in both ear canals (H61.23) Both ear canals are completely occluded with cerumen, obstructing visualization of the tympanic membranes. Cerumen appears soft and non-impacted. - Referred to ENT for cerumen removal. 2. Overweight (E66.3) Obesity, Class I, BMI 30-34.9 (E66.811) Current weight is 193 lbs, down from 207 lbs. Patient has been making lifestyle changes, including increased exercise. Previously on a low dose of semaglutide from a compounding pharmacy, which was discontinued due to insurance and billing issues. - Discussed benefits of GLP-1 agonists for weight management. - Prescribed Ozempic 0.5 mg from a compounding pharmacy in [place], [place], with added vitamin B12. - Will contact the ombudsman regarding insurance and billing issues related to previous diagnoses. 3. Hypothyroidism, unspecified type (E03.9) Stable on current medication regimen. Voice recognition software was used to compose this office note. Please excuse any unintended typographical errors. Recording using [employer] software for draft documentation of the visit was discussed with the patient/authorized payroll representative; all questions welcomed and answered. Patient/authorized payroll representative agreed to proceed Nico Xiao MD documented in this encounter [facility] 08-13-2024 Telephone encounter Note I changed the coding to lipid screening for cardiovascular disease in March 2024 so I'm not sure why it is still being denied even though her insurance states it is coded correctly Ricarda Bravo APRN.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 [facility] 08-13-2024 Miscellaneous Notes I changed the coding to lipid screening for cardiovascular disease in March 2024 so I'm not sure why it is still being denied even though her insurance states it is coded correctly Ricarda Bravo APRN.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 Please see patient message insurance is most likely denying lab for lipid coded for obesity Bridgett Nguyen MA documented in this encounter [facility] 08-13-2024 Telephone encounter Note Please see patient message insurance is most likely denying lab for lipid coded for obesity Bridgett Nguyen MA [facility] 03-08-2024 Note HNO ID: [id number] Author: RICARDA BRAVO APRN.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 Service: ? Author Type: Nurse Practitioner Type: Progress Notes Filed: 04/26/2024 08:51 Note Text: This Team Access Model visit is a phone encounter. It required patient-provider interaction for the medical decision making as documented below. I have communicated my name and active licensure. The patient's identity and physical location were verified at the time of this visit. Either the patient or their legal payroll representative has been informed of the risks and benefits of -- and alternatives to -- treatment through a remote evaluation and consents to proceed with the evaluation remotely. Patient Location: [place] CC: Patient presents with: Medication Follow-up HPI Anup Delgado is a 44 year old female who is contacted today for a phone visit. This is an established patient of Dr. Nico Xiao MD. She had been gaining weight from overeating and drinking too much alcohol which she related to stress and other factors. She was prescribed Naltrexone which helped with food and alcohol cravings. She was doing much better and stopped taking after a few months. Continues to do well without it. She was also started on Ozempic, medication filled at [facility] in [place]. She has been on the 0.25 mg dose for a while now and it is not effective. Denies side effects. Anxiety/depression: Patient is currently taking Prozac Feels medication is working well: yes Persistent/bothersome symptoms: none Side effects: None Hypothyroidism-taking levothyroxine daily on an empty stomach: Yes TSH Date Value 11/28/2023 2.520 mIU/L 08/09/2022 4.350 mIU/L 06/13/2020 2.420 uU/mL 12/23/2019 1.510 uU/mL REVIEW OF SYSTEMS See HPI PAST MEDICAL HISTORY Diagnosis Date Anxiety Hypothyroidism Miscarriage 2 Miscarriages after of son. OCD (obsessive compulsive disorder) PAST SURGICAL HISTORY Procedure Laterality Date APPENDECTOMY EXCISE;BARTHOLINS GLAND/CYST ALLERGIES Patient has no known allergies. MEDICATIONS semaglutide, weight loss, (WEGOVY) 0.25 mg/0.5 mL pen injector Inject 0.5 mL subcutaneously one time a week. naltrexone 50 mg tablet Take 1 tablet by mouth once daily. predniSONE (DELTASONE) 20 mg tablet 1 tablet three times a day for 3 days, then 2 times a day for 3 days, the one daily for 3 days. FLUoxetine (PROZAC) 20 mg capsule Take 1 capsule by mouth once daily. SYNTHROID 100 mcg tablet Take 1 tablet by mouth daily before breakfast. FAMILY HISTORY Problem Relation Age of Onset Diabetes Father Type 2 Breast Cancer Mother 60 Breast Cancer Maternal Aunt 60 Social History Tobacco Use Smoking status: Never Smokeless tobacco: Never Vaping Use Vaping status: Never Used Substance Use Topics Alcohol use: Yes Comment: Occasionally Drug use: No EXAM: Deferred physical exam as visit was completed over the phone Patient is speaking in complete sentences without obvious respiratory distress or audible wheezing. ASSESSMENT/PLAN: 1. Obesity, Class I, BMI 30-34.9 - ICD9: 278.00, ICD10: E66.811 (primary diagnosis) - Continue healthy diet consisting of fruits, vegetables and lean proteins. Reduce sugary drinks of artificial juices and sodas and replace with water and low calorie Crystal Light. Healthy Snack alternatives have been discussed - Continue exercise or meaningful activity for 20 minutes at lest 3 times a day - SEMAGLUTIDE (WEIGHT LOSS) 0.5 MG/0.5 ML SUBCUTANEOUS PEN INJECTOR to be faxed to [facility] pharmacy - follow-up in 3 months 2. Hypothyroidism, unspecified type - ICD9: 244.9, ICD10: E03.9 - Instructed patient on importance of taking on an empty stomach either first thing in the morning or at bedtime. - check TSH - continue current dose of Synthroid for now 3. Anxiety and depression - ICD9: 300.00, 311, ICD10: F41.9, F32.A Doing well on current treatment - Reviewed benefits of sleep hygeine, diet and exercise - Instructed patient to contact office or [id number] after-hours promptly should condition worsen or any new symptoms appear. - Given information regarding 988 Suicide and Crisis [employer] - FLUOXETINE 20 MG CAPSULE 4. Excessive drinking of alcohol - ICD9: 305.00, ICD10: F10.10 Resolved 5. Encounter for lipid screening for cardiovascular disease - ICD9: V77.91, V81.2, ICD10: Z13.220, Z13.6 - LIPID PANEL BASIC Prescription instructions reviewed with patient as applicable. Potential red flag symptoms discussed with the patient. Reviewed appropriate action plan to take if red flag symptoms occur. Patient agreeable to treatment plan. During this patient visit I have spent approximately 20 minutes in counseling regarding treatment options, medications, and coordinating care. Ricarda Bravo APRN.LESLIE [facility] 03-08-2024 History of Presen t illness Narrative This Team Access Model visit is a phone encounter. It required patient-provider interaction for the medical decision making as documented below. I have communicated my name and active licensure. The patient's identity and physical location were verified at the time of this visit. Either the patient or their legal payroll representative has been informed of the risks and benefits of -- and alternatives to -- treatment through a remote evaluation and consents to proceed with the evaluation remotely. Patient Location: [place] CC: Patient presents with: Medication Follow-up HPI Anup Delgado is a 44 year old female who is contacted today for a phone visit. This is an established patient of Dr. Nico Xiao MD. She had been gaining weight from overeating and drinking too much alcohol which she related to stress and other factors. She was prescribed Naltrexone which helped with food and alcohol cravings. She was doing much better and stopped taking after a few months. Continues to do well without it. She was also started on Ozempic, [facility] in [place]. She has been on the 0.25 mg dose for a while now and it is not effective. Denies side effects. Anxiety/depression: Patient is currently taking Prozac Feels medication is working well: yes Persistent/bothersome symptoms: none Side effects: None Hypothyroidism-taking levothyroxine daily on an empty stomach: Yes TSH Date Value 11/28/2023 2.520 mIU/L 08/09/2022 4.350 mIU/L 06/13/2020 2.420 uU/mL 12/23/2019 1.510 uU/mL REVIEW OF SYSTEMS See HPI PAST MEDICAL HISTORY Diagnosis Date Anxiety Hypothyroidism Miscarriage 2 Miscarriages after of son. OCD (obsessive compulsive disorder) PAST SURGICAL HISTORY Procedure Laterality Date APPENDECTOMY EXCISE;BARTHOLINS GLAND/CYST ALLERGIES Patient has no known allergies. MEDICATIONS semaglutide, weight loss, (WEGOVY) 0.25 mg/0.5 mL pen injector Inject 0.5 mL subcutaneously one time a week. naltrexone 50 mg tablet Take 1 tablet by mouth once daily. predniSONE (DELTASONE) 20 mg tablet 1 tablet three times a day for 3 days, then 2 times a day for 3 days, the one daily for 3 days. FLUoxetine (PROZAC) 20 mg capsule Take 1 capsule by mouth once daily. SYNTHROID 100 mcg tablet Take 1 tablet by mouth daily before breakfast. FAMILY HISTORY Problem Relation Age of Onset Diabetes Father Type 2 Breast Cancer Mother 60 Breast Cancer Maternal Aunt 60 Social History Tobacco Use Smoking status: Never Smokeless tobacco: Never Vaping Use Vaping status: Never Used Substance Use Topics Alcohol use: Yes Comment: Occasionally Drug use: No EXAM: Deferred physical exam as visit was completed over the phone Patient is speaking in complete sentences without obvious respiratory distress or audible wheezing. ASSESSMENT/PLAN: 1. Obesity, Class I, BMI 30-34.9 - ICD9: 278.00, ICD10: E66.811 (primary diagnosis) - Continue healthy diet consisting of fruits, vegetables and lean proteins. Reduce sugary drinks of artificial juices and sodas and replace with water and low calorie Crystal Light. Healthy Snack alternatives have been discussed - Continue exercise or meaningful activity for 20 minutes at lest 3 times a day - SEMAGLUTIDE (WEIGHT LOSS) 0.5 MG/0.5 ML SUBCUTANEOUS PEN INJECTOR to be faxed to [place] [facility] - follow-up in 3 months 2. Hypothyroidism, unspecified type - ICD9: 244.9, ICD10: E03.9 - Instructed patient on importance of taking on an empty stomach either first thing in the morning or at bedtime. - check TSH - continue current dose of Synthroid for now 3. Anxiety and depression - ICD9: 300.00, 311, ICD10: F41.9, F32.A Doing well on current treatment - Reviewed benefits of sleep hygeine, diet and exercise - Instructed patient to contact office or [id number] after-hours promptly should condition worsen or any new symptoms appear. - Given information regarding [address] Suicide and Crisis Lifeline - FLUOXETINE 20 MG CAPSULE 4. Excessive drinking of alcohol - ICD9: 305.00, ICD10: F10.10 Resolved Prescription instructions reviewed with patient as applicable. Potential red flag symptoms discussed with the patient. Reviewed appropriate action plan to take if red flag symptoms occur. Patient agreeable to treatment plan. During this patient visit I have spent approximately 20 minutes in counseling regarding treatment options, medications, and coordinating care. Ricarda Bravo APRN.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 documented in this encounter [facility] 11-30-2023 Telephone encounter Note Patient updated via [employer]. Harry Lynne LPN November 30, 2023 12:01 PM [facility] 11-30-2023 Miscellaneous Notes Patient updated via [employer]. Harry Lynne LPN November 30, 2023 12:01 PM ----- Message from Nico Xiao MD sent at 11/30/2023 9:11 AM EDT ----- Normal tsh documented in this encounter [facility] 11-30-2023 Telephone encounter Note ----- Message from Nico Xiao MD sent at 11/30/2023 9:11 AM EDT ----- Normal tsh [facility] 10-23-2023 Telephone encounter Note Wegovy is not covered for weight lose by Patient's insurance. Jacque Cabrera LPN [facility] 10-23-2023 Miscellaneous Notes Wegovy is not covered for weight lose by Patient's insurance. Jacque Cabrera LPN documented in this encounter [facility] 10-10-2023 Telephone encounter Note Images from the original note were not included. Electronic PA completed and denied. Your PA request has been denied. Additional information will be provided in the denial communication. (Message 1140) Payer: [employer] [phone] Electronic appeal: Not supported Your PA request has been denied. Additional information will be provided in the denial communication. (Message 1140) View History Notes Time User Attachment Attachment received from [email or web address]. 10/10/2023 1:53 PM [facility], Rx Priorauth In Document Medication Being Authorized semaglutide (OZEMPIC) 0.25 mg or 0.5 mg (2 mg/3 mL) pen Inject 0.25 mg subcutaneously one time a week. Dispense: 1 Each Refills: 1 Start: 10/10/2023 Class: Normal Diagnoses: Mixed obsessional thoughts and acts; Obesity, Class I, BMI 30-34.9; Weight gain This order has been released to its destination. [id number] [place] [address] [address] [facility] [phone] [facility] [id number] [facility] 10-10-2023 Miscellaneous Notes Images from the original note were not included. Electronic PA completed and denied. Your PA request has been denied. Additional information will be provided in the denial communication. (Message 1140) Payer: [employer] [phone] Electronic appeal: Not supported Your PA request has been denied. Additional information will be provided in the denial communication. (Message 1140) View History Notes Time User Attachment Attachment received from pay. 10/10/2023 1:53 PM [facility], Rx Priorauth In Document Medication Being Authorized semaglutide (OZEMPIC) 0.25 mg or 0.5 mg (2 mg/3 mL) pen Inject 0.25 mg subcutaneously one time a week. Dispense: 1 Each Refills: 1 Start: 10/10/2023 Class: Normal Diagnoses: Mixed obsessional thoughts and acts; Obesity, Class I, BMI 30-34.9; Weight gain This order has been released to its destination. To be filled at: [facility]/pharmacy #[id number] [place] [address] [address] [facility]. - [phone] [facility] [id number] documented in this encounter [facility] 10-04-2023 History of Presen t illness Narrative VIRTUAL VISIT PROGRESS NOTE This is an encounter initiated for an established patient, parent or guardian not originating from a related Evaluation & Management service provided within the previous 7 days nor leading to an Evaluation & Management service or procedure within the next 24 hours or soonest available appointment. This is a virtual visit. It required patient-provider interaction for the medical decision making as documented below. Patient has consented to this encounter. Persons Present: patient Data Reviewed: most recent notes Patient has consented to patient-provider interaction via telephone/virtual visit for the medical decision making documented in this telephone/virtual visit encounter. Total Time Spent: 21 minutes ALISE Delgado is a 43 year old female here today for a check up on her medical problems. Chief Complaint Patient presents with: Refill Request Follow Up SUE Hebert is a 43 year old female established patient who presents today for a virtual visit follow up on the [employer] platform via my chart. She has had issues with recent poison carlyn, treated with prednisone. Improving. Follow up on taking naltrexone. Not impacting appetite or weight but has cut back on alcohol. No side effects. Doing well. Her medications were reviewed today and her list is now up to date. Medications Current Outpatient Medications Medication Sig naltrexone 50 mg tablet Take 1 tablet by mouth once daily. predniSONE (DELTASONE) 20 mg tablet 1 tablet three times a day for 3 days, then 2 times a day for 3 days, the one daily for 3 days. FLUoxetine (PROZAC) 20 mg capsule Take 1 capsule by mouth once daily. SYNTHROID 100 mcg tablet Take 1 tablet by mouth daily before breakfast. No current facility-administered medications for this visit. ALLERGIES No Known Allergies ACTIVE PROBLEM LIST Obesity, Class I, Bmi 30-34.9 - 10/04/2023 Mixed Obsessional Thoughts and Acts - 01/11/2023 Carrier of Group B Streptococcus - 06/25/2020 Secondary Female Infertility - 06/25/2020 Anxiety and Depression - 08/26/2019 Hypothyroidism - 08/26/2019 Environmental Allergies - 08/26/2019 Rash - 08/26/2019 Endometrial Polyp - 05/16/2016 Recurrent Loss Without Current - 05/16/2016 Social History Tobacco Use Smoking status: Never Smokeless tobacco: Never Vaping Use Vaping Use: Never used Substance Use Topics Alcohol use: Yes Comment: Occasionally Drug use: No Review of Systems Constitutional: Negative. Respiratory: Negative. Cardiovascular: Negative. OBJECTIVE LMP 08/14/2023 Physical Exam Vitals and nursing note reviewed. Constitutional: General: She is awake. She is not in acute distress. Appearance: Normal appearance. She is well-developed and well-groomed. She is not ill-appearing, toxic-appearing or diaphoretic. Eyes: General: Vision grossly intact. Neck: Vascular: No JVD. Trachea: Trachea normal. Pulmonary: Effort: No accessory muscle usage, prolonged expiration or respiratory distress. Neurological: General: No focal deficit present. Mental Status: She is alert. Psychiatric: Attention and Perception: Attention and perception normal. Mood and Affect: Mood and affect normal. Speech: Speech normal. Behavior: Behavior normal. Behavior is cooperative. Thought Content: Thought content normal. Cognition and Memory: Cognition and memory normal. Judgment: Judgment normal. ASSESSMENT/PLAN: 1. Excessive drinking of alcohol - ICD9: 305.00, ICD10: F10.10 (primary diagnosis) Much improved, doing well on naltrexone. 2. Mixed obsessional thoughts and acts - ICD9: 300.3, ICD10: F42.2 Stable. 3. Hypothyroidism, unspecified type - ICD9: 244.9, ICD10: E03.9 - Instructed patient on importance of taking on an empty stomach either first thing in the morning or at bedtime. 4. Obesity, Class I, BMI 30-34.9 - ICD9: 278.00, ICD10: E66.9 Working on weight loss. Barby Neal APRN.CNP Patient verbalizes understanding of instructions from today's visit and in agreement with treatment plan. Questions answered. Agrees to call the office if symptoms do not improve or if they worsen. Return in about 3 months (around 01/04/2024) for Follow up on chronic conditions and medications.. Patient has consented to patient-provider interaction via telephone/virtual visit for the medical decision making documented in this telephone/virtual visit encounter. Total Time Spent: 21 minutes documented in this encounter [facility] 08-23-2023 History of Presen t illness Narrative SUBJECTIVE Anup Delgado is a 43 year old female here today for a check up on her medical problems. Chief Complaint Patient presents with: Medication Follow-up HPI Anup Delgado is a 43 year old female. She is an established patient of Nico Xiao MD. Here today for a routine follow up on mood. Current medication includes Prozac. OCD and anxiety symptoms were improved with that. Manageable right now with the current dose. Mother recently, handled this pretty well. Some concerns today that she is drinking alcohol regularly, was using this to help with relaxing, help anxiety. Alcoholism in the family. Becoming habitual. Bottle of wine a day. Her medications were reviewed today and her list is now up to date. Medications Current Outpatient Medications Medication Sig naltrexone 50 mg tablet Take 1 tablet by mouth once daily. FLUoxetine (PROZAC) 20 mg capsule Take 1 capsule by mouth once daily. SYNTHROID 100 mcg tablet Take 1 tablet by mouth daily before breakfast. No current facility-administered medications for this visit. 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 Cardiovascular: Negative. OBJECTIVE BP 124/84 Pulse 84 Wt 207 lb (93.9kg) SpO2 98% LMP 08/14/2023 Physical Exam Vitals and nursing note reviewed. Constitutional: General: She is awake. She is not in acute distress. Appearance: Normal appearance. She is well-developed and well-groomed. She is not ill-appearing, toxic-appearing or diaphoretic. HENT: Head: Normocephalic. Right Ear: External ear normal. Left Ear: External ear normal. Nose: Nose normal. Eyes: General: Vision grossly intact. Conjunctiva/sclera: Conjunctivae normal. Pupils: Pupils are equal, round, and reactive to light. Neck: Vascular: No JVD. Trachea: Trachea normal. Pulmonary: Effort: Pulmonary effort is normal. No accessory muscle usage, prolonged expiration or respiratory distress. Musculoskeletal: Cervical back: Neck supple. Skin: General: Skin is warm and dry. Capillary Refill: Capillary refill takes less than 2 seconds. Neurological: General: No focal deficit present. Mental Status: She is alert and oriented to person, place, and time. Mental status is at baseline. Psychiatric: Attention and Perception: Attention and perception normal. Mood and Affect: Mood and affect normal. Speech: Speech normal. Behavior: Behavior normal. Behavior is cooperative. Thought Content: Thought content normal. Cognition and Memory: Cognition and memory normal. Judgment: Judgment normal. ASSESSMENT/PLAN: 1. Excessive drinking of alcohol - ICD9: 305.00, ICD10: F10.10 (primary diagnosis) Discussed naltrexone, will start medication. Discussed new medication including but not limited to reason for use, possible side effects, administration, signs and symptoms to monitor for and when to seek medical attention. 2. Mixed obsessional thoughts and acts - ICD9: 300.3, ICD10: F42.2 Stable, continue current medication. - FLUOXETINE 20 MG CAPSULE 3. Anxiety and depression - ICD9: 300.00, 311, ICD10: F41.9, F32.A Stable. Continue current medication. - FLUOXETINE 20 MG CAPSULE Portions of this note have been entered by ancillary staff. I have reviewed and when necessary edited, so that they are an adequate record of my encounter with this patient Please note that parts of this document were created using voice recognition software and therefore may contain grammatical errors. Patient verbalizes understanding of instructions from today's visit and in agreement with treatment plan. Questions answered. Agrees to call the office if questions, concerns of issues with acute symptoms not improving or if they worsen. See diagnoses and orders for additional plan(s). Allergies and medications were reviewed, list was updated, and refills given if needed. Past medical, surgical, social, and family history reviewed and updated as appropriate. Encouraged proper diet & exercise as well as compliance with taking medications. Age-appropriate health preventative measures were discussed. Return in about 6 weeks (around 10/04/2023) for recheck on new medication.. MARILEE Simeon documented in this encounter [facility] 05-16-2023 Miscellaneous Notes Patient has been identified by name and date of : No Patient phones for refill(s): Requested Prescriptions Pending Prescriptions Disp Refills SYNTHROID 100 mcg tablet [Pharmacy Med Name: SYNTHROID 100 MCG TABLET] 90 tablet 1 Sig: take 1 tablet by mouth every day before breakfast Date of last office visit in primary care: 02/07/2023 Date of next office visit in primary care: Visit date not found Please advise. Thank you. Tram Austin LPN. documented in this encounter [facility] 02-07-2023 History of Presen t illness Narrative SUBJECTIVE Anup Delgado is a 42 year old female here today for a check up on her medical problems. Chief Complaint Patient presents with: 4 week follow up HPI Anup Delgado is a 42 year old female. Here today for follow up on anxiety, OCD. Recently she changed from taking Lexapro to Prozac. She states today that the change has been very helpful and that she feels OCD symptoms and anxiety are much better controlled at this point. She also feels like she is happy with this dose of medication and would like to stay at the current dose. Continues to take her thyroid medication too. Her medications were reviewed today and her list is now up to date. Medications Current Outpatient Medications Medication Sig FLUoxetine (PROZAC) 20 mg capsule TAKE 1 CAPSULE BY MOUTH EVERY DAY SYNTHROID 100 mcg tablet Take 1 tablet by mouth daily before breakfast. No current facility-administered medications for this visit. 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 Cardiovascular: Negative. OBJECTIVE BP 122/82 Pulse 89 Wt 202 lb (91.6kg) SpO2 97% LMP 12/28/2022 Physical Exam Vitals and nursing note reviewed. Constitutional: General: She is awake. She is not in acute distress. Appearance: Normal appearance. She is well-developed and well-groomed. She is not ill-appearing, toxic-appearing or diaphoretic. HENT: Head: Normocephalic. Right Ear: External ear normal. Left Ear: External ear normal. Nose: Nose normal. Eyes: General: Vision grossly intact. Conjunctiva/sclera: Conjunctivae normal. Pupils: Pupils are equal, round, and reactive to light. Neck: Vascular: No JVD. Trachea: Trachea normal. Cardiovascular: Rate and Rhythm: Normal rate and regular rhythm. Pulses: Normal pulses. Heart sounds: Normal heart sounds. No murmur heard. Pulmonary: Effort: Pulmonary effort is normal. No accessory muscle usage, prolonged expiration or respiratory distress. Breath sounds: Normal breath sounds. Musculoskeletal: Cervical back: Neck supple. Skin: General: Skin is warm and dry. Capillary Refill: Capillary refill takes less than 2 seconds. Neurological: General: No focal deficit present. Mental Status: She is alert and oriented to person, place, and time. Mental status is at baseline. Psychiatric: Attention and Perception: Attention and perception normal. Mood and Affect: Mood and affect normal. Speech: Speech normal. Behavior: Behavior normal. Behavior is cooperative. Thought Content: Thought content normal. Cognition and Memory: Cognition and memory normal. Judgment: Judgment normal. ASSESSMENT/PLAN: 1. Anxiety and depression - ICD9: 300.00, 311, ICD10: F41.9, F32.A (primary diagnosis) Stable, improved with the change to Prozac, continue at current dose. Discussed if needed we can increase if anxiety/OCD would worsen. 2. Mixed obsessional thoughts and acts - ICD9: 300.3, ICD10: F42.2 See above. 3. Hypothyroidism, unspecified type - ICD9: 244.9, ICD10: E03.9 Stable - Instructed patient on importance of taking on an empty stomach either first thing in the morning or at bedtime. - continue current dose of medication 4. Encounter for immunization - ICD9: V03.89, ICD10: Z23 - [employer] COVID-19 VACCINE ( SEASON) AGE 12+ YR Medical Decision Making: Problems: Moderate: 2+ stable chronic illnesses Risk: Moderate: Drug management Medical Decision Making Level: 4 - Moderate Portions of this note have been entered by ancillary staff. I have reviewed and when necessary edited, so that they are an adequate record of my encounter with this patient Please note that parts of this document were created using voice recognition software and therefore may contain grammatical errors. Patient verbalizes understanding of instructions from today's visit and in agreement with treatment plan. Questions answered. Agrees to call the office if questions, concerns of issues with acute symptoms not improving or if they worsen. See diagnoses and orders for additional plan(s). Allergies and medications were reviewed, list was updated, and refills given if needed. Past medical, surgical, social, and family history reviewed and updated as appropriate. Encouraged proper diet & exercise as well as compliance with taking medications. Age-appropriate health preventative measures were discussed. Return in about 4 months (around 06/08/2023) for Follow up on chronic conditions and medications.. Barby Neal APRN-LESLIE documented in this encounter [facility] 01-11-2023 History of Presen t illness Narrative ALISE Delgado is a 42 year old female here today for a check up on her medical problems. Chief Complaint Patient presents with: Recheck: medication Wellbutrin is not taking caused nausea, heart palpitation and angry issues. HPI Anup Delgado is a 42 year old female. Here today for follow up. Last seen 08/09, had issues with the Wellbutrin so stopped it. Had palpitations, anger, nausea. Had been on her Lexapro and Celexa in the past. Stopped Lexapro also and noticing OCD, anxiety being severe. Would like to try something else. Still feeling fatigued, weight increased. Sister on Prozac and helpful. Her medications were reviewed today and her list is now up to date. Medications Current Outpatient Medications Medication Sig SYNTHROID 100 mcg tablet Take 1 tablet by mouth daily before breakfast. FLUoxetine (PROZAC) 20 mg capsule Take 1 capsule by mouth once daily. No current facility-administered medications for this visit. 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 Cardiovascular: Negative. OBJECTIVE BP 118/82 Pulse 91 Wt 203 lb (92.1kg) SpO2 98% LMP 12/28/2022 Physical Exam Vitals and nursing note reviewed. Constitutional: General: She is awake. She is not in acute distress. Appearance: Normal appearance. She is well-developed and well-groomed. She is not ill-appearing, toxic-appearing or diaphoretic. HENT: Head: Normocephalic. Right Ear: External ear normal. Left Ear: External ear normal. Nose: Nose normal. Eyes: General: Vision grossly intact. Conjunctiva/sclera: Conjunctivae normal. Pupils: Pupils are equal, round, and reactive to light. Neck: Vascular: No JVD. Trachea: Trachea normal. Cardiovascular: Rate and Rhythm: Normal rate and regular rhythm. Pulses: Normal pulses. Heart sounds: Normal heart sounds. No murmur heard. Pulmonary: Effort: Pulmonary effort is normal. No accessory muscle usage, prolonged expiration or respiratory distress. Breath sounds: Normal breath sounds. Musculoskeletal: Cervical back: Neck supple. Skin: General: Skin is warm and dry. Capillary Refill: Capillary refill takes less than 2 seconds. Neurological: General: No focal deficit present. Mental Status: She is alert and oriented to person, place, and time. Mental status is at baseline. Psychiatric: Attention and Perception: Attention and perception normal. Mood and Affect: Mood and affect normal. Speech: Speech normal. Behavior: Behavior normal. Behavior is cooperative. Thought Content: Thought content normal. Cognition and Memory: Cognition and memory normal. Judgment: Judgment normal. ASSESSMENT/PLAN: 1. Anxiety and depression - ICD9: 300.00, 311, ICD10: F41.9, F32.A (primary diagnosis) Issues and side effects with Wellbutrin. Stop medication. Persistent and more noticeable anxiety and OCD. Trial Prozac, suspect higher doses will be needed given her anxiety and OCD. - FLUOXETINE 20 MG CAPSULE 2. Mixed obsessional thoughts and acts - ICD9: 300.3, ICD10: F42.2 - FLUOXETINE 20 MG CAPSULE 3. Hypothyroidism, unspecified type - ICD9: 244.9, ICD10: E03.9 - Instructed patient on importance of taking on an empty stomach either first thing in the morning or at bedtime. 4. Weight gain - ICD9: 783.1, ICD10: R63.5 Stable. 5. Other fatigue - ICD9: 780.79, ICD10: R53.83 Maybe from anxiety not well controlled. 6. Encounter for immunization - ICD9: V03.89, ICD10: Z23 - INFLUENZA VACCINE, AGE 6 MO - 64 YR, QUADRIVALENT (AFLURIA, FLULAVAL, FLUZONE) Medical Decision Making: Problems: Moderate: 1+ chronic illnesses with change Risk: Moderate: Drug management Medical Decision Making Level: 4 - Moderate Portions of this note have been entered by ancillary staff. I have reviewed and when necessary edited, so that they are an adequate record of my encounter with this patient Please note that parts of this document were created using voice recognition software and therefore may contain grammatical errors. Patient verbalizes understanding of instructions from today's visit and in agreement with treatment plan. Questions answered. Agrees to call the office if questions, concerns of issues with acute symptoms not improving or if they worsen. See diagnoses and orders for additional plan(s). Allergies and medications were reviewed, list was updated, and refills given if needed. Past medical, surgical, social, and family history reviewed and updated as appropriate. Encouraged proper diet & exercise as well as compliance with taking medications. Age-appropriate health preventative measures were discussed. Return in about 4 weeks (around 02/08/2023) for recheck on new medication.. Barby Neal APRN-LESLIE documented in this encounter [facility] 10-10-2022 History of Presen t illness Narrative Telemedicine Visit - Distance Health Virtual Visit Note Patient seen on pbsi Online platform. Location of patient: [place] - Medical Record: [id number] - : 1980 I have communicated my name and active licensure. The patient's identity and physical location were verified at the time of this visit. Either the patient or their legal payroll representative has been informed of the risks and benefits of -- and alternatives to -- treatment through a remote evaluation and consents to proceed with the evaluation remotely. History of Present Illness Anup Delgado is a 42 year old old female presenting with a rash. History was obtained from: patient The rash is arms and torso for the past 10-14 day(s) and is constant and gradually worsening. The rash is described as itchy and burning. The prior dermatologic history includes similar rash in past. The patient reports recent contact with poison carlyn The patient also complains of no other pertinent symptoms. The patient denies no other pertinent symptoms. The patient has tried OTC steroids, antihistamines for partial relief. The topical hydrocortisone may have irritated the area more. PAST MEDICAL HISTORY Diagnosis Date Anxiety Hypothyroidism Miscarriage 2 Miscarriages after of son. OCD (obsessive compulsive disorder) PAST SURGICAL HISTORY Procedure Laterality Date APPENDECTOMY EXCISE;BARTHOLINS GLAND/CYST FAMILY HISTORY Problem Relation Age of Onset Diabetes Father Type 2 Breast Cancer Mother 60 Breast Cancer Maternal Aunt 60 Social History Tobacco Use Smoking status: Never Smokeless tobacco: Never Vaping Use Vaping Use: Never used Substance Use Topics Alcohol use: Yes Comment: Occasionally Drug use: No ALLERGIES No Known Allergies predniSONE (DELTASONE) 10 mg tablet Take 4 tablets daily for 3 days , then 3 tablets daily for 3 days, then 2 tablets daily for 3 days, then 1 tablet daily for 3 days then discontinue. levothyroxine (SYNTHROID) 100 mcg tablet Take 1 tablet by mouth once daily. Take on empty stomach buPROPion SR (WELLBUTRIN SR) 150 mg 12 hr tablet Take 1 tablet by mouth twice daily. escitalopram oxalate (LEXAPRO) 10 mg tablet TAKE 1 TABLET BY MOUTH EVERY DAY cholecalciferol, Vitamin D3, (VITAMIN D3) 1,250 mcg (50,000 unit) cap capsule Take 1 capsule by mouth one time a week. (Patient not taking: Reported on 01/17/2022) Video Exam (Examination performed via Video enabled technology) General appearance: Alert, oriented, pleasant, in NAD :Yes Ill appearing :No Lethargic appearing :No Respiratory distress :No Skin: linear streaks of erythematous papules with few scattered pruritic small vesicles. Located on bilateral arms and torso ASSESSMENT/PLAN: 1. Allergic contact dermatitis due to plant - ICD9: 692.6, ICD10: L23.7 - discussed skin care of rash - follow up if symptoms persist or worsen. Rash likely developed from contact with poison carlyn 10-14 days of symptoms ; worsening over the past few days She is afebrile, appears stable, non-toxic and in NAD Start prednisone taper. Pt. Instructions: Avoid hot temperature and direct sunlight. Avoid using hot water for baths or showers. - Use mild soap like Dove, Aveeno or Cetaphil Cool water compresses Avoid scratching or rubbing irritated skin. Tylenol for discomfort. Consider an over the counter antihistamine for itching like claritin Topical calamine lotion Prednisone as prescribed Avoid exposure to irritant if known Follow income tax analyst's directions for over the counter medications. Avoid use of personal products with perfumes or fragrance. If rash worsens or if you develop a fever, pain , joint pain, increased redness or warmth then seek in person care at Urgent care center or ED Follow up with your doctor or chicken cleaner for persistent, worsening or new symptoms. - Red flags discussed for immediate in person care - All questions answered Sierra Brown APRN.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 If you let us know who your primary care provider is, we will send them a notification of today s visit through our electronic medical records system. Since not all providers have access to our notifications, we strongly encourage you to share the following record of today s visit with your primary care provider at your next visit. This will help in providing you the best care. If you do not have an established Primary Care physician and would like to continue care with a [facility] Virtual Primary Care physician, please ask your provider to place a Establish Primary Care order. Use VMTurbo to manage your care, wherever you are, 17/10, on your mobile device or computer. [employer]MT[employer]bo connects you to [employer] so you can access all your health information in one place and also schedule and request virtual appointments with primary care providers. documented in this encounter [facility] 10-10-2022 Instructions Sierra Brown APRN.CNP - 10/10/2022 11:22 AM EDT Avoid hot temperature and direct sunlight. Avoid using hot water for baths or showers. - Use mild soap like Dove, Aveeno or Cetaphil Cool water compresses Avoid scratching or rubbing irritated skin. Tylenol for discomfort. Consider an over the counter antihistamine for itching like claritin Topical calamine lotion Prednisone as prescribed Avoid exposure to irritant if known Follow income tax analyst's directions for over the counter medications. Avoid use of personal products with perfumes or fragrance. If rash worsens or if you develop a fever, pain , joint pain, increased redness or warmth then seek in person care at Urgent care center or ED Follow up with your doctor or chicken cleaner for persistent, worsening or new symptoms. documented in this encounter [facility] 05-20-2022 Instructions Lidya Agosto APRN.CNP - 05/20/2022 10:01 AM EST Xrays were completed and interpreted by the radiologist as negative for acute bony abnormality. * Prednisone 40 mg (2 tablets) per day for 5 days, take in morning or early in day * Do not NSAIDs during this 5 day course (ibuprofen, naproxen, Motrin, Aleve, Advil) Tylenol only during prednisone use Follow up with podiatry as needed. documented in this encounter [facility] 05-20-2022 History of Presen t illness Narrative Images from the original note were not included. Subjective The history is provided by the patient. No telephone quotation clerk was used. HPI Anup Delgado is a 42 year old female who presents today for CC of left foot pain. This started yesterday. She has used ibuprofen without relief. No previous injury, no known trauma or injury. No redness or swelling. BP 112/78 Pulse 93 Temp 36.7 C (98 F) Resp 21 Wt 89.2 kg (196 lb 9.6 oz) LMP 06/13/2020 (Exact Date) SpO2 100% BMI 29.03 kg/m Social History Tobacco Use Smoking status: Never Smokeless tobacco: Never Vaping Use Vaping Use: Never used Substance Use Topics Alcohol use: Yes Comment: Occasionally Drug use: No PAST MEDICAL HISTORY Diagnosis Date Anxiety Hypothyroidism Miscarriage 2 Miscarriages after of son. OCD (obsessive compulsive disorder) I have confirmed and edited as necessary, the [facility] Review of Systems Constitutional: Negative for chills and fever. Musculoskeletal: Positive for joint pain (left foot pain). Negative for myalgias. Skin: Negative for itching and rash. All other systems reviewed and are negative. Objective Physical Exam Vitals and nursing note reviewed. Cardiovascular: Pulses: Dorsalis pedis pulses are 2+ on the right side and 2+ on the left side. Posterior tibial pulses are 2+ on the right side and 2+ on the left side. Pulmonary: Effort: Pulmonary effort is normal. Musculoskeletal: Right foot: Normal. Left foot: Decreased range of motion (eversion, inversion, flexion). Normal capillary refill. Tenderness and bony tenderness present. No swelling, deformity, bunion, Charcot foot, foot drop, prominent metatarsal heads, laceration or crepitus. Legs: Skin: General: Skin is warm and dry. Neurological: Mental Status: She is alert and oriented to person, place, and time. Psychiatric: Mood and Affect: Affect normal. ASSESSMENT/PLAN: 1. Foot pain, left - ICD9: 729.5, ICD10: M79.672 Possible soft tissue injury, fascitis Prednisone burst, tylenol Post op shoe/crutches provided from stock for comfort Follow up with podiatry if no improvement - XR FOOT GENERAL 3V AP/LAT/OBL LEFT FINDINGS: No acute fractures or subluxations are noted. Multiple accessory bones seen in the midfoot. The joint spaces are well preserved. The mineralization of the bones is normal. There is no significant soft tissue swelling. IMPRESSION: No acute radiographic abnormalities identified in the left foot. Interpreted by : EMY MCBRIDE MD - CONSULT TO PODIATRY Diagnosis and treatment plan were discussed and questions were answered to the patient's satisfaction. Pt acknowledged understanding of concepts and follow up plan. Specific signs and symptoms that would indicate the need for higher level of care were discussed in detail warranting prompt ER evaluation. Lidya Agosto APRN.LESLIE documented in this encounter [facility] 01-17-2022 History of Presen t illness Narrative Richard Roca MD Department of Orthopaedics Orthopaedics [facility] [address] [facility] [id number] Dept: [phone] Dept January 17, [address] Deborah MD for an opinion regarding bilateral finger deformity. My final recommendations will be communicated back to the requesting physician by way of shared Medical record or letter to requesting physician via US mail. 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 Patient born with slight deformity and always just dealt with the pain, but wanted to get it looked at d/t increased pain and soreness she's been dealing with. Patient states it is more of a surface pain rather than deep bone pain. 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 Just some may be mild/early arthritic changes secondary to the congenital malalignment of the DIP joints. FOLLOW UP INSTRUCTIONS: As needed Ms. Anup Delgado was advised as to contrast therapies and/or to take analgesics/anti-inflammatories as needed and all contraindications were reviewed. OBJECTIVE: Ms. Anup Delgado is a pleasant 41 year old in no apparent distress. Gen:LMP 06/13/2020 nl development, non obese, no deformities ENT: Normocephalic, normal hearing, moist mucosa CV: Pulses:Radial= 2+ and symmetric, capillary refill < 2 secs, no peripheral edema/varicosities Skin: no rash, bruising or lesions. Good turgor. Psych: cooperative and appropriate, alert and oriented x 3, good mood and affect. Musculoskeletal: Slight radial deviation of the DIP joint to the small digits bilaterally. Minimal to no tenderness at the joint specifically. IMAGING: IMPRESSION: Mild degenerative changes Extrusion Operator: EUGENE Transcribe Date/Time: Jan 18 2022 9:23A Dictated by : CONCHIS PAREDES DO This examination was interpreted and the report reviewed and electronically signed by: CONCHIS PAREDES DO on Jan 18 2022 9:25AM EST Results-Findings * * *Final Report* * * DATE OF EXAM: Jan 17 2022 9:52AM [id number] - XR DIGIT 3V FRONTAL/LAT/OBL RT / PROCEDURE REASON: Pain of finger of right hand * * * * Physician Interpretation * * * * EXAM(s): XR DIGIT 3V FRONTAL/LAT/OBL RT, XR DIGIT 3V FRONTAL/LAT/OBL LT EXAM DATE/TIME: 01/17/2022 9:52 AM HISTORY: 41 years old Clinical information: Pain of finger of right hand Pain in bilateral pinky/5th fingers. Pt has always had a bending deformity of both pinkies and they occasionally become painful. TECHNIQUE: Images: XR DIGIT 3V FRONTAL/LAT/OBL RT, XR DIGIT 3V FRONTAL/LAT/OBL LT Comparison: None. RESULT: Findings: Bilateral findings: There is narrowing of all the interphalangeal joints. There appears to be mild curvature of the finger in a radial direction in the distal phalanx is slight forward tilt in the proximal phalanx. Right :No fractures or dislocations are seen. Left :No fractures or dislocations are seen. Supporting Subjective Information Below: Past Medical History: PAST MEDICAL HISTORY Diagnosis Date Anxiety Hypothyroidism Miscarriage 2 Miscarriages after of son. OCD (obsessive compulsive disorder) Past Surgical History: PAST SURGICAL HISTORY Procedure Laterality Date APPENDECTOMY EXCISE;BARTHOLINS GLAND/CYST Family History: FAMILY HISTORY Problem Relation Age of Onset Diabetes Father Type 2 Breast Cancer Mother 60 Breast Cancer Maternal Aunt 60 Social History: Social History Tobacco Use Smoking status: Never Smokeless tobacco: Never Vaping Use Vaping Use: Never used Substance Use Topics Alcohol use: Yes Comment: Occasionally Drug use: No Medications: Current Outpatient Medications Medication Sig SYNTHROID 88 mcg tablet Take every day on empty stomach. escitalopram oxalate (LEXAPRO) 10 mg tablet TAKE 1 TABLET BY MOUTH EVERY DAY predniSONE (DELTASONE) 10 mg tablet Take 4 pills by mouth once daily for 3 days, then 3 pills once day for 3 days, then 2 pills once daily for 3 days, then 1 pill once daily for 3 days. Take with food. escitalopram oxalate (LEXAPRO) 5 mg tablet Take 1 tablet by mouth once daily. escitalopram oxalate (LEXAPRO) 10 mg tablet Take 1 tablet by mouth once daily. In addition to 5 mgs to make a total of 15 mgs cholecalciferol, Vitamin D3, (VITAMIN D3) 1,250 mcg (50,000 unit) cap capsule Take 1 capsule by mouth one time a week. (Patient not taking: Reported on 01/17/2022) No current facility-administered medications for this visit. Allergies: Patient has no allergy information on record. ROS: General (negative for fatigue, malaise, weight loss/gain) HEENT (negative for headache, earache, recent vision changes, sinus pain, sore throat) Respiratory (no recent shortness of breath, hemoptysis) CV (negative for chest tightness, palpitations) Musculoskeletal (see HPI) Psych (no depression, anxiety) REFERRING PHYSICIAN: Ms. Anup Delgado was referred to me for consultation by the following physician. This consultation note will be sent to the following physician by either mail or electronic medical record. Nico Xiao [address] [facility] [address] Nico Xiao MD [id number] [facility] [id number] Richard Roca MD documented in this encounter [facility] 10-11-2022 History of Presen t illness Narrative Error Reason for Visit Patient presents with: Recheck: med refills Anup Delgado is a 41 year old female who presents here today for Above Complaints.. Health Maintenance HEPATITIS B(1 of 3 - 3-dose series) HEPATITIS C SCREENING HIV SCREENING COVID-19 VACCINE(3 - Booster for Pfizer series) MAMMOGRAM ANNUAL PCP TEAM CHRONIC DISEASE VISIT INFLUENZA(1) HPI Was started on lexapro, initially it worked well, she takes it in the evening, before bed, it started working in a few days but in the past 6 months she starts feeling a little over whelmed, she also had 16 pounds of weight gain. She does not think it is from the lexapro. Currently she does not think her anxiety is controlled. Wants to increase by 5 mgs and then to 20 mgs. She feels nervous a lot, does not have anything specific that is making her feel the way she is feeling. She is back from [place] , her tsh last week was in the normal range. Both patients little fingers were crooked since , they hurt her once in a while and she should like to see if a surgery can be done for her. No problem-specific Assessment & Plan notes found for this encounter. PAST MEDICAL HISTORY Diagnosis Date Anxiety Hypothyroidism Miscarriage 2 Miscarriages after of son. OCD (obsessive compulsive disorder) PAST SURGICAL HISTORY Procedure Laterality Date APPENDECTOMY EXCISE;BARTHOLINS GLAND/CYST FAMILY HISTORY Problem Relation Age of Onset Diabetes Father Type 2 Breast Cancer Mother 60 Breast Cancer Maternal Aunt 60 Social History Tobacco Use Smoking status: Never Smokeless tobacco: Never Vaping Use Vaping Use: Never used Substance Use Topics Alcohol use: Yes Comment: Occasionally Drug use: No Past medical history, appointments, medications, allergies reviewed. Pertinent Lab/Diagnostic Studies are reviewed and discussed today Current Outpatient Medications: escitalopram oxalate (LEXAPRO) 10 mg tablet SYNTHROID 88 mcg tablet cholecalciferol, Vitamin D3, (VITAMIN D3) 1,250 mcg (50,000 unit) cap capsule Review of Systems CONSTITUTIONAL: No fevers, chills night sweats, unintended weight loss CARDIOVASCULAR: No chest pain, dyspnea, palpitations, orthopnea, PND, ankle edema. PULM: No dyspnea, unexplained cough. GI: No dysphagia/odynophagia, problematic reflux, constipation, diarrhea, changes in stool habits, hematochezia, melena. : No new urinary complaints, including dysuria, gross hematuria or pyuria. NEURO: No new balance problems, peripheral weakness/paresthesias or numbness of concern. Physical Exam BP 112/70 (BP Site: Left Arm, BP Position: Sitting, BP Cuff Size: Large Adult) Pulse 70 Temp 36.8 C (98.2 F) Resp 12 Ht 175.3 cm (5' 9) Wt 84.8 kg (187 lb) LMP 06/13/2020 (Exact Date) SpO2 98% BMI 27.62 kg/m General appearance: Well appearing, alert, in no acute distress, well nourished. Skin: Skin color, texture, turgor normal, no suspicious rashes or lesions Head: Normocephalic, no masses, lesions, tenderness or abnormalities Eyes: Anicteric sclera. Pupils are equally round and reactive to light. Extraocular movements are intact. Lungs: Lungs clear to auscultation. No wheezing, rhonchi, rales Heart: RRR without murmur, gallop, or rubs. Extremities:little curved b/l little finger. ASSESSMENT/PLAN: 1. Anxiety and depression - ICD9: 300.00, 311, ICD10: F41.9, F32.A (primary diagnosis) Increased lexapro to 15 mgs daily We will see if her anxiety is better controlled 2. Need for influenza vaccination - ICD9: V04.81, ICD10: Z23 - INFLUENZA VACCINE QUADRIVALENT 6 MO - 64 YRS IM 3. Special screening examination for viral disease - ICD9: V73.99, ICD10: Z11.59 - HEP C AB IA W/CONF SCRN 4. Screening for HIV (human immunodeficiency virus) - ICD9: V73.89, ICD10: Z11.4 - HIV 1 2 COMBO(AG/AB),WITH REFLEX TO DIFFERENTIATION 5. Hypothyroidism, unspecified type - ICD9: 244.9, ICD10: E03.9 - Instructed patient on importance of taking on an empty stomach either first thing in the morning or at bedtime. Stable - Behavioral intervention 6. Congenital deformity of finger - ICD9: 755.50, ICD10: Q68.1 - CONSULT TO ORTHOPAEDICS Nico Xiao MD documented in this encounter [facility] Evaluation note Diagnosis Hypothyroidism Unspecified hypothyroidism [facility] Diagnosis Anxiety and depression- Primary Dysthymic disorder Need for influenza vaccination Need for prophylactic vaccination and inoculation against influenza Special screening examination for viral disease Special screening examination for unspecified viral disease Screening for HIV (human immunodeficiency virus) Special screening examination for other specified viral diseases Hypothyroidism, unspecified type Congenital deformity of finger Unspecified congenital anomaly of upper limb [facility] Diagnosis Pain of finger of right hand- Primary Pain in limb Pain in finger of right hand Pain in limb Pain in finger of left hand Pain in limb [facility] Diagnosis Clinodactyly of finger- Primary Congenital deformity of finger Unspecified congenital anomaly of upper limb documented in this encounter [facility] noteNo assessment information availableWWhite [facility] Work Phone: Evaluation note* Diagnosis Foot pain, left- Primary Pain in limb [facility] Diagnosis Allergic contact dermatitis due to plant- Primary Contact dermatitis and other eczema due to plants (except food) [facility] Diagnosis Anxiety and depression Dysthymic disorder [facility] Diagnosis Anxiety and depression- Primary Dysthymic disorder Mixed obsessional thoughts and acts Hypothyroidism, unspecified type Weight gain Abnormal weight gain Other fatigue Encounter for immunization Need for other specified prophylactic vaccination against single bacterial disease [facility] Diagnosis Pain in finger of left hand Pain in limb Pain of finger of right hand Pain in limb [facility] Diagnosis Onset Date Resolution Status Abnormal uterine bleeding ac [place] Weight gain [facility] Work Phone: Evaluation note* Diagnosis Anxiety and depression- Primary Dysthymic disorder Mixed obsessional thoughts and acts Hypothyroidism, unspecified type Encounter for immunization Need for other specified prophylactic vaccination against single bacterial disease [facility] Diagnosis Encounter for screening mammogram for breast cancer documented in this encounter [facility] note* Diagnosis Onset Date Resolution Status Encounter for routine gynecological examination noneactive [facility] Work Phone: Evaluation note* Diagnosis Anxiety and depression Dysthymic disorder Mixed obsessional thoughts and acts documented in this encounter [facility] note* Diagnosis Excessive drinking of alcohol- Primary Alcohol abuse, unspecified Mixed obsessional thoughts and acts Anxiety and depression Dysthymic disorder documented in this encounter [facility] note* Diagnosis Hypothyroidism Unspecified hypothyroidism documented in this encounter [facility] note* Diagnosis Excessive drinking of alcohol- Primary Alcohol abuse, unspecified Mixed obsessional thoughts and acts Hypothyroidism, unspecified type Obesity, Class I, BMI 30-34.9 Obesity, unspecified documented in this encounter [facility] note* Diagnosis Obesity, Class I, BMI 30-34.9 Obesity, unspecified Weight gain Abnormal weight gain documented in this encounter [facility] note* Diagnosis Foot pain, left Pain in limb documented in this encounter [facility] note* Diagnosis Encounter for screening mammogram for breast cancer [facility] Diagnosis Mixed obsessional thoughts and acts- Primary Obesity, Class I, BMI 30-34.9 Obesity, unspecified Weight gain Abnormal weight gain documented in this encounter [facility] note* Diagnosis Obesity, Class I, BMI 30-34.9- Primary Obesity, unspecified Hypothyroidism, unspecified type Anxiety and depression Dysthymic disorder Excessive drinking of alcohol Alcohol abuse, unspecified documented in this encounter [facility] note* Diagnosis Obesity, Class I, BMI 30-34.9 Obesity, unspecified documented in this encounter [facility] note* Diagnosis Right ear pain- Primary Otalgia, unspecified Overweight Hypothyroidism, unspecified type Excessive cerumen in both ear canals Obesity, Class I, BMI 30-34.9 Obesity, unspecified documented in this encounter [facility] note* Diagnosis Bilateral impacted cerumen- Primary Impacted cerumen documented in this encounter [facility] Discharge instructions Additional Instructions Bedside ultrasound shows no signs of thrombosis if even superficial over your contusion area. This is away from regions of deep vein thrombosis. Use Tylenol and ibuprofen as needed. Follow-up with your doctor.[facility] Work Phone: [facility] for referral (narrative)* Diagnostic Procedure Only (Routine) - Pending Review Specialty Diagnoses / Procedures Referred By Contac t Referred To Contact XR IMAGING Diagnoses Pain of finger of right hand Procedures XR DIGIT GENERAL 3V FRONTAL/LAT/OBL RIGHT RADEX FINGR MINIMUM 2 VIEWS Richard Roca MD [address] [place] [address] Xr Imaging Referral ID Status Reason Start Date Expiration Date Visits Requested Visits Authorized [id number] Pending Review Auto-Generat ed Referral 2 02/10/2023 1 1 * Diagnostic Procedure Only (Routine) - Pending Review Specialty Diagnoses / Procedures Referred By Contac t Referred To Contact XR IMAGING Diagnoses Pain in finger of left hand Procedures XR DIGIT GENERAL 3V FRONTAL/LAT/OBL LEFT RADEX FINGR MINIMUM 2 VIEWS Richard Roca MD [address] [place] [address] Xr Imaging Referral ID Status Reason Start Date Expiration Date Visits Requested Visits Authorized [id number] Pending Review Auto-Generat ed Referral 2 02/10/2023 1 1 [facility] for referral (narrative)* Diagnostic Procedure Only (Routine) - Closed Specialty Diagnoses / Procedures Referred By Contac t Referred To Contact XR IMAGING Diagnoses Pain of finger of right hand Procedures XR DIGIT GENERAL 3V FRONTAL/LAT/OBL RIGHT RADEX FINGR MINIMUM 2 VIEWS Richard Roca MD [address] [place] [address] [place] [address] Referral ID Status Reason Start Date Expiration Date V isits Requested Visits Authorized [id number] Closed Auto-Generate d Referral 01/11/2022 02/10/2023 1 1 * Diagnostic Procedure Only (Routine) - Closed Specialty Diagnoses / Procedures Referred By Contac t Referred To Contact XR IMAGING Diagnoses Pain in finger of left hand Procedures XR DIGIT GENERAL 3V FRONTAL/LAT/OBL LEFT RADEX FINGR MINIMUM 2 VIEWS Richard Roca MD [address] [place] [address] [place] [address] Referral ID Status Reason Start Date Expiration Date V isits Requested Visits Authorized [id number] Closed Auto-Generate d Referral 01/11/2022 02/10/2023 1 1 [facility] for referral (narrative)* Diagnostic Procedure Only (Routine) - Pending Review Specialty Diagnoses / Procedures Referred By Contac t Referred To Contact BR IMAGING Diagnoses Encounter for screening mammogram for breast cancer Procedures CIPRIANO SCREENING SCREENING MAMMOGRAPHY BI 2-VIEW BREAST INC Nico Zapata MD [address] [place] [address] [facility] [address] [place] [address] Referral ID Status Reason Start Date Expiration Date Visits Requested Visits Authorized [id number] Pending Review Auto-Generat ed Referral 03/09/2024 1 1 [facility] for referral (narrative)* Diagnostic Procedure Only (Urgent) - Closed Specialty Diagnoses / Procedures Referred By Contac t Referred To Contact XR IMAGING Diagnoses Foot pain, left Procedures XR FOOT GENERAL 3V AP/LAT/OBL LEFT RADEX FOOT COMPLETE MINIMUM 3 VIEWS Lidya Agosto APRN.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 [address] [place] [id number] [place] [address] Referral ID Status Reason Start Date Expiration Date V isits Requested Visits Authorized [id number] Closed Auto-Generate d Referral 05/20/2022 06/19/2023 1 1 [facility] for referral (narrative)* Diagnostic Procedure Only (Routine) - New Request Specialty Diagnoses / Procedures Referred By Contac t Referred To Contact BR IMAGING Diagnoses Encounter for screening mammogram for breast cancer Procedures CIPRIANO SCREENING W NANCY SCREENING DIGITAL BREAST TOMOSYNTHESIS BI SCREENING MAMMOGRAPHY BI 2-VIEW BREAST INC CAD Nico Xiao MD [address] [place] [address] [facility] [address] [place] [address] Referral ID Status Reason Start Date Expiration Date Visits Requested Visits Authorized [id number] New Request Auto-Generat ed Referral 02/22/2025 1 1 [facility] for visit Narrative* Diagnostic Procedure Only (Routine) - Closed Specialty Diagnoses / Procedures Referred By Steffi t Referred To Contact XR IMAGING Diagnoses Pain of finger of right hand Procedures XR DIGIT GENERAL 3V FRONTAL/LAT/OBL RIGHT RADEX FINGR MINIMUM 2 VIEWS Richard Roca MD [address] [place] [address] [place] [address] Referral ID Status Reason Start Date Expiration Date V isits Requested Visits Authorized [id number] Closed Auto-Generate d Referral 01/11/2022 02/10/2023 1 1 [facility] for visit Narrative* Diagnostic Procedure Only (Urgent) - Closed Specialty Diagnoses / Procedures Referred By Steffi zazueta Referred To Contact XR IMAGING Diagnoses Foot pain, left Procedures XR FOOT GENERAL 3V AP/LAT/OBL LEFT RADEX FOOT COMPLETE MINIMUM 3 VIEWS Lidya Agosto, JAS.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 [address] [place] [address] [place] [address] Referral ID Status Reason Start Date Expiration Date V isits Requested Visits Authorized [id number] Closed Auto-Generate d Referral 05/20/2022 06/19/2023 1 1 [facility] Summary Purpose Family History No Family History Records Found Relationship Condition Age at Onset Recorded Date/T earl mother Malignant neoplasm of breast Unknown Advance Directives No Advanced Directives Records Found Advance Directive Response Recorded Date/ Time Living Will No April 11 6:21pm Power of Seed Potato Cutter No April 11, 2022 6:21pm Advance Directive Response Recorded Date/ Time Living Will No April 11 7:21pm Power of Seed Potato Cutter No April 11, 2022 7:21pm Reason for Referral Specialty Diagnoses / Procedures Referred By Contac t Referred To Contact Orthopedics Diagnoses Congenital deformity of finger Procedures CONSULT TO ORTHOPAEDICS OFFICE/OUTPATIENT [facility] 60-74 MINUTES Nico Xiao MD [address] [place] [address] Referral ID Status Reason Start Date Expiration Date Visits Requested Visits Authorized [id number] Authorized PCP Requested Referral 2 01/04/2023 1 1 Specialty Diagnoses / Procedures Referred By Contac t Referred To Contact Podiatry Diagnoses Foot pain, left Procedures CONSULT TO PODIATRY OFFICE/OUTPATIENT [facility] 60-74 MINUTES Lidya Agosto APRN.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 [address] [place] [address] Referral ID Status Reason Start Date Expiration Date Visits Requested Visits Authorized [id number] Authorized PCP Requested Referral 05/20/2022 05/20/2023 1 1 Specialty Diagnoses / Procedures Referred By Contac t Referred To Contact XR IMAGING Diagnoses Foot pain, left Procedures XR FOOT GENERAL 3V AP/LAT/OBL LEFT RADEX FOOT COMPLETE MINIMUM 3 VIEWS Lidya Agosto APRN.CNP [address] [place] [address] Xr Imaging Referral ID Status Reason Start Date Expiration Date V isits Requested Visits Authorized [id number] Closed Auto-Generate d Referral 05/20/2022 06/19/2023 1 1 Specialty Diagnoses / Procedures Referred By Contac t Referred To Contact Diagnoses Mixed obsessional thoughts and acts Obesity, Class I, BMI 30-34.9 Weight gain Barby Neal APRN.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 [address] [place] [address] Referral ID Status Reason Start Date Expiration Date Visits Re quested Visits Authorized [id number] Denied 1 1 Chief Complaint and Reason for Visit Chief Complaint LEFT LEG Chief Complaint Abnormal uterine and vaginal bleeding, unspecified Chief Complaint Abnormal uterine and vaginal bleeding, unspecified AUB Reason for Visit Abnormal uterine ble eding Weight gain Chief Complaint 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 Reason for Visit Encounter for routin e gynecological examination Additional Source Comments INFORMATION SOURCE (unrecogn ized section and content) DATE CREATED AUTHOR 09/13/2017 [facility] DATE CREATED AUTHOR AUTHOR'S ORGANIZ ATION 05/31/2018 [facility] DATE CREATED AUTHOR AUTHOR'S ORGANIZ ATION 06/14/2023 [facility] DATE CREATED AUTHOR AUTHOR'S ORGANIZ ATION 02/04/2025 [facility] Source Comments (unrecognize d section and content) In the event this informatio n is protected by the Federal Confidentiality of Alcohol and Drug Abuse Patient Records regulations: The Federal rules restrict any use of the information to criminally investigate or prosecute any alcohol or drug abuse patient.[facility] event this information is protected by the Federal Confidentiality of Alcohol and Drug Abuse Patient Records regulations: The Federal rules restrict any use of the information to criminally investigate or prosecute any alcohol or drug abuse patient.[facility] the event this information is protected by the Federal Confidentiality of Alcohol and Drug Abuse Patient Records regulations: The Federal rules restrict any use of the information to criminally investigate or prosecute any alcohol or drug abuse patient.[facility] the event this information is protected by the Federal Confidentiality of Alcohol and Drug Abuse Patient Records regulations: The Federal rules restrict any use of the information to criminally investigate or prosecute any alcohol or drug abuse patient.[facility] the event this information is protected by the Federal Confidentiality of Alcohol and Drug Abuse Patient Records regulations: The Federal rules restrict any use of the information to criminally investigate or prosecute any alcohol or drug abuse patient.[facility] the event this information is protected by the Federal Confidentiality of Alcohol and Drug Abuse Patient Records regulations: The Federal rules restrict any use of the information to criminally investigate or prosecute any alcohol or drug abuse patient.[facility] the event this information is protected by the Federal Confidentiality of Alcohol and Drug Abuse Patient Records regulations: The Federal rules restrict any use of the information to criminally investigate or prosecute any alcohol or drug abuse patient.[facility] the event this information is protected by the Federal Confidentiality of Alcohol and Drug Abuse Patient Records regulations: The Federal rules restrict any use of the information to criminally investigate or prosecute any alcohol or drug abuse patient.[facility] the event this information is protected by the Federal Confidentiality of Alcohol and Drug Abuse Patient Records regulations: The Federal rules restrict any use of the information to criminally investigate or prosecute any alcohol or drug abuse patient.[facility] the event this information is protected by the Federal Confidentiality of Alcohol and Drug Abuse Patient Records regulations: The Federal rules restrict any use of the information to criminally investigate or prosecute any alcohol or drug abuse patient.[facility] the event this information is protected by the Federal Confidentiality of Alcohol and Drug Abuse Patient Records regulations: The Federal rules restrict any use of the information to criminally investigate or prosecute any alcohol or drug abuse patient.[facility] the event this information is protected by the Federal Confidentiality of Alcohol and Drug Abuse Patient Records regulations: The Federal rules restrict any use of the information to criminally investigate or prosecute any alcohol or drug abuse patient.[facility] the event this information is protected by the Federal Confidentiality of Alcohol and Drug Abuse Patient Records regulations: The Federal rules restrict any use of the information to criminally investigate or prosecute any alcohol or drug abuse patient.[facility] the event this information is protected by the Federal Confidentiality of Alcohol and Drug Abuse Patient Records regulations: The Federal rules restrict any use of the information to criminally investigate or prosecute any alcohol or drug abuse patient.[facility] the event this information is protected by the Federal Confidentiality of Alcohol and Drug Abuse Patient Records regulations: The Federal rules restrict any use of the information to criminally investigate or prosecute any alcohol or drug abuse patient.[facility] the event this information is protected by the Federal Confidentiality of Alcohol and Drug Abuse Patient Records regulations: The Federal rules restrict any use of the information to criminally investigate or prosecute any alcohol or drug abuse patient.[facility] the event this information is protected by the Federal Confidentiality of Alcohol and Drug Abuse Patient Records regulations: The Federal rules restrict any use of the information to criminally investigate or prosecute any alcohol or drug abuse patient.[facility] the event this information is protected by the Federal Confidentiality of Alcohol and Drug Abuse Patient Records regulations: The Federal rules restrict any use of the information to criminally investigate or prosecute any alcohol or drug abuse patient.[facility] the event this information is protected by the Federal Confidentiality of Alcohol and Drug Abuse Patient Records regulations: The Federal rules restrict any use of the information to criminally investigate or prosecute any alcohol or drug abuse patient.[facility] the event this information is protected by the Federal Confidentiality of Alcohol and Drug Abuse Patient Records regulations: The Federal rules restrict any use of the information to criminally investigate or prosecute any alcohol or drug abuse patient.[facility] the event this information is protected by the Federal Confidentiality of Alcohol and Drug Abuse Patient Records regulations: The Federal rules restrict any use of the information to criminally investigate or prosecute any alcohol or drug abuse patient.[facility] the event this information is protected by the Federal Confidentiality of Alcohol and Drug Abuse Patient Records regulations: The Federal rules restrict any use of the information to criminally investigate or prosecute any alcohol or drug abuse patient.[facility] the event this information is protected by the Federal Confidentiality of Alcohol and Drug Abuse Patient Records regulations: The Federal rules restrict any use of the information to criminally investigate or prosecute any alcohol or drug abuse patient.[facility] the event this information is protected by the Federal Confidentiality of Alcohol and Drug Abuse Patient Records regulations: The Federal rules restrict any use of the information to criminally investigate or prosecute any alcohol or drug abuse patient.[facility] the event this information is protected by the Federal Confidentiality of Alcohol and Drug Abuse Patient Records regulations: The Federal rules restrict any use of the information to criminally investigate or prosecute any alcohol or drug abuse patient.[facility] the event this information is protected by the Federal Confidentiality of Alcohol and Drug Abuse Patient Records regulations: The Federal rules restrict any use of the information to criminally investigate or prosecute any alcohol or drug abuse patient.[facility] the event this information is protected by the Federal Confidentiality of Alcohol and Drug Abuse Patient Records regulations: The Federal rules restrict any use of the information to criminally investigate or prosecute any alcohol or drug abuse patient.[facility] the event this information is protected by the Federal Confidentiality of Alcohol and Drug Abuse Patient Records regulations: The Federal rules restrict any use of the information to criminally investigate or prosecute any alcohol or drug abuse patient.[facility] the event this information is protected by the Federal Confidentiality of Alcohol and Drug Abuse Patient Records regulations: The Federal rules restrict any use of the information to criminally investigate or prosecute any alcohol or drug abuse patient.[facility] the event this information is protected by the Federal Confidentiality of Alcohol and Drug Abuse Patient Records regulations: The Federal rules restrict any use of the information to criminally investigate or prosecute any alcohol or drug abuse patient.[facility] the event this information is protected by the Federal Confidentiality of Alcohol and Drug Abuse Patient Records regulations: The Federal rules restrict any use of the information to criminally investigate or prosecute any alcohol or drug abuse patient.[facility] the event this information is protected by the Federal Confidentiality of Alcohol and Drug Abuse Patient Records regulations: The Federal rules restrict any use of the information to criminally investigate or prosecute any alcohol or drug abuse patient.[facility] Care Teams (unrecognized sec tion and content) News Assistant Relationship Specialty Start Date End Date Nico Xiao MD [address] [place] [address] PCP - General Internal Medicine 12/10/19 News Assistant Relationship Specialty Start Date End Date Nico Xiao MD [address] [place] [address] PCP - General Internal Medicine 12/10/19 News Assistant Relationship Specialty Start Date End Date Nico Xiao MD [address] [place] [address] PCP - General Internal Medicine 12/10/19 News Assistant Relationship Specialty Start Date End Date Nico Xiao MD [address] [place] [address] PCP - General Internal Medicine 12/10/19 Team Status: Active Member Role Status Dates No Primary Care Physician Family Provider Active Dr. Nico Xiao MD Primary Care Provider Active Team Status: Inactive Member Role Status Dates Dr. Nico Xiao MD Primary Care Provider Active Dr. Gelacio Parekh DO Emergency Provider Active News Assistant Relationship Specialty Start Date End Date Nico Xiao MD [address] [place] [address] PCP - General Internal Medicine 12/10/19 News Assistant Relationship Specialty Start Date End Date Nico Xiao MD [address] [place] [address] PCP - General Internal Medicine 12/10/19 News Assistant Relationship Specialty Start Date End Date Nico Xiao MD [address] [place] [address] PCP - General Internal Medicine 12/10/19 News Assistant Relationship Specialty Start Date End Date Nico Xiao MD [address] [place] [address] PCP - General Internal Medicine 12/10/19 News Assistant Relationship Specialty Start Date End Date Nico Xiao MD [address] [place] [address] PCP - General Internal Medicine 12/10/19 Team Status: Active Member Role Status Dates Dr. Nico Xiao MD Primary Care Provider Active Dr. Isa Campos MD Attending Provider, Referr ing Provider Active Team Status: Inactive Member Role Status Dates Dr. Nico Xiao MD Primary Care Provider Active Dr. Isa Campos MD Attending Provider, Referr ing Provider Active Team Status: Inactive Member Role Status Dates Dr. Nico Xiao MD Primary Care Provider, Referring Provider Active Dr. Isa Campos MD Attending Provider Active News Assistant Relationship Specialty Start Date End Date Nico Xiao MD [address] [place] [address] PCP - General Internal Medicine 12/10/19 News Assistant Relationship Specialty Start Date End Date Nico Xiao MD [address] [place] [address] PCP - General Internal Medicine 12/10/19 News Assistant Relationship Specialty Start Date End Date Nico Xiao MD [address] [place] [address] PCP - General Internal Medicine 12/10/19 News Assistant Relationship Specialty Start Date End Date Nico Xiao MD [address] [place] [address] PCP - General Internal Medicine 12/10/19 News Assistant Relationship Specialty Start Date End Date Nico Xiao MD [address] [place] [address] PCP - General Internal Medicine 12/10/19 News Assistant Relationship Specialty Start Date End Date Nico Xiao MD [address] [place] [address] PCP - General Internal Medicine 12/10/19 News Assistant Relationship Specialty Start Date End Date Nico Xiao MD [address] [place] [address] PCP - General Internal Medicine 12/10/19 News Assistant Relationship Specialty Start Date End Date Nico Xiao MD [address] [place] [address] PCP - General Internal Medicine 12/10/19 News Assistant Relationship Specialty Start Date End Date Nico Xiao MD [address] [place], [place] [address] PCP - General Internal Medicine 12/10/19 News Assistant Relationship Specialty Start Date End Date Nico Xiao MD [address] [place], [place] [id number] PCP - General Internal Medicine 12/10/19 News Assistant Relationship Specialty Start Date End Date Nico Xiao MD [address] [place], [place] [id number] PCP - General Internal Medicine 12/10/19 Jessica Zamorano PA-C [address] [place] [id number] [facility] 03/03/24 Radha Toledo APRN.CNP [address] [place], [place] [id number] [facility] 03/03/24 Merlyn Rucker PA-C [address] [place] [address] [facility] 03/03/24 News Assistant Relationship Specialty Start Date End Date Nico Xiao MD [address] [place], [place] [id number] PCP - General Internal Medicine 12/10/19 Jessica Zamorano PA-C [address] [place] [address] [facility] 03/03/24 Radha Toledo APRN.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 [address] [place] [address] [facility] 03/03/24 Merlyn Rucker PA-C [address] [place] [address] [facility] 03/03/24 News Assistant Relationship Specialty Start Date End Date Nico Xiao MD [address] [place] [address] PCP - General Internal Medicine 12/10/19 Jessica Zamorano PA-C [address] [place] [id number] [facility] 03/03/24 Radha Toledo APRN.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 [address] [place] [address] [facility] 03/03/24 Merlyn Rucker PA-C [address] [place] [address] [facility] 03/03/24 News Assistant Relationship Specialty Start Date End Date Nico Xiao MD [address] [place] [address] PCP - General Internal Medicine 12/10/19 Radha Toledo APRN.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 [address] [place] [address] [facility] 03/03/24 News Assistant Relationship Specialty Start Date End Date Nico Xiao MD [address] [place] [address] PCP - General Internal Medicine 12/10/19 Radha Toledo APRN.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 [address] [place] [address] [facility] 03/03/24 News Assistant Relationship Specialty Start Date End Date Nico Xiao MD [address] [place] [address] PCP - General Internal Medicine 12/10/19 Radha Toledo APRN.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 [address] [place] [address] [facility] 03/03/24 Reason for Visit (unrecogniz ed section and content) Reason Onset Date Comments Recheck med refills Immunizations 01/04/2022 Flu vaccination Reason Comments 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 Specialty Diagnoses / Procedures Referred By Steffi t Referred To Contact Orthopedics Diagnoses Congenital deformity of finger Procedures CONSULT TO ORTHOPAEDICS OFFICE/OUTPATIENT NEW HIGH MDM 60-74 MINUTES Nico Xiao MD [address] [place] [address] Referral ID Status Reason Start Date Expiration Date V isits Requested Visits Authorized [id number] Closed PCP Requested Referral 01/04/2022 01/04/2023 1 1 Reason Comments Pain (foot) Left foot pain, not able to weight on it x 1 day Reason Comments Rash Reason Comments Refill Request Reason Comments Recheck medication Wellbutri n is not taking caused nausea, heart palpitation and angry issues. Reason Comments 4 week follow up Reason Comments Medication Follow-up Reason Comments Refill Request Follow Up Reason Comments Insurance Authorization Reason Comments Med Change Request Reason Comments F/U 6 months Ear Problem Right ear pain x servando mitra 2 months Reason Comments Ear Problem Pressure, itching an d slight pain to rt ear, 3-4 months Specialty Diagnoses / Procedures Referred By Contnicholas t Referred To Contact Ent - Otolaryngology Diagnoses Right ear pain Excessive cerumen in both ear canals Procedures CONSULT TO ENT OFFICE/OUTPATIENT [facility] 60 MINUTES Nico Xiao MD [address] [place] [address] Phone: tel: fax: Referral ID Status Reason Start Date Expiration Date V isits Requested Visits Authorized [id number] Closed PCP Requested Referral 09/10/2024 09/10/2025 1 1 Goals (unrecognized section and content) Goals may be documented in a n alternate sectionGoals may be documented in an alternate sectionGoals may be documented in an alternate sectionGoals may be documented in an alternate sectionGoals may be documented in an alternate section FOR RECORDS PERTAINING TO PATIENTS WHO ARE OR HAVE BEEN ENROLLED IN A CHEMICAL DEPENDENCY/SUBSTANCEABUSE PROGRAM, SOME INFORMATION MAY BE OMITTED. This clinical summary was aggregated from multiple sources. Caution should be exercised in using it in the provision of clinical care. This summary normalizes information from multiple sources, and as a consequence, information in this document may materially change the coding, format and clinical context of patient data. In addition, data may be omitted in some cases. CLINICAL DECISIONS SHOULD BE BASED ON THE PRIMARY CLINICAL RECORDS. [facility] [employer] [facility] provides no warranty or guarantee of the accuracy or completeness of information in this document.
== END | disposition home or self-care (01) ==
LOC: OPBI 12:12
PROVIDERS: PCP Internal Medicine; Referring Provider Obstetrics & Gynecology; Visit Provider Obstetrics & Gynecology
DX: Z12.31 Encounter for screening mammogram for malignant neoplasm of breast (principal); Z80.3 Family history of malignant neoplasm of breast
CPT/HCPCS: 77063; 77067